=== PATIENT | female | born 1995 | race Caucasian/White ===

== ENCOUNTER 2017-08-29 22:03 | Emergency (ER) | payer OTHER ==
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
--- NOTE | 2017-08-30 01:22 | EDPHYS ---
Physician Documentation [facility] Name: Yandy Dawkins Age: 21 yrs Sex: Female : 1995 Arrival Date: 08/29/2017 Time: 22:18 Bed 14 Private MD: ED Physician Ever Bolivar HPI: 08/30 01:32 This 21 yrs old Female presents to ER via Ambulatory with complaints of Lower snw Back Pain. 01:32 Onset: The symptoms/episode began/occurred acutely, this morning. Associated signs and snw symptoms: The patient has no apparent associated signs or symptoms. Modifying factors: The patient symptoms are alleviated by nothing, the patient symptoms are aggravated by nothing. The patient has not experienced similar symptoms in the past. It is unknown whether or not the patient has recently seen a physician. 01:32 no fever, no vomiting,. 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 - Social history:: Smoking status: Patient uses tobacco products, smokes one-half pack cigarettes per day, Patient uses alcohol, occasionally. street drugs, marijuana. ROS: 08/30 01:32 Constitutional: Negative for fever, chills, and weight loss, Eyes: Negative for injury, snw pain, redness, and discharge, ENT: Negative for injury, pain, and discharge, Neck: Negative for injury, pain, and swelling, Cardiovascular: Negative for chest pain, palpitations, and edema, Respiratory: Negative for shortness of breath, cough, wheezing, and pleuritic chest pain, Abdomen/GI: Negative for abdominal pain, nausea, vomiting, diarrhea, and constipation, : Negative for injury, bleeding, discharge, and swelling, MS/Extremity: Negative for injury and deformity, Skin: Negative for injury, rash, and discoloration, Neuro: Negative for headache, weakness, numbness, tingling, and seizure. Back: Positive for pain at rest, flank pain, on the right. Exam: 01:30 Constitutional: This is a well developed, well nourished patient who is awake, alert, snw and in no acute distress. Head/Face: Normocephalic, atraumatic. Eyes: Pupils equal round and reactive to light, extra-ocular motions intact. Lids and lashes normal. Conjunctiva and sclera are non-icteric and not injected. Cornea within normal limits. Periorbital areas with no swelling, redness, or edema. ENT: Nares patent. No nasal discharge, no septal abnormalities noted. Tympanic membranes are normal and external auditory canals are clear. Oropharynx with no redness, swelling, or masses, exudates, or evidence of obstruction, uvula midline. Mucous membranes moist. Neck: Trachea midline, no thyromegaly or masses palpated, and no cervical lymphadenopathy. Supple, full range of motion without nuchal rigidity, or vertebral point tenderness. No Meningismus. Chest/axilla: Normal chest wall appearance and motion. Nontender with no deformity. No lesions are appreciated. Cardiovascular: Regular rate and rhythm with a normal S1 and S2. No gallops, murmurs, or rubs. Normal PMI, no JVD. No pulse deficits. Respiratory: Lungs have equal breath sounds bilaterally, clear to auscultation and percussion. No rales, rhonchi or wheezes noted. No increased work of breathing, no retractions or nasal flaring. Back: No spinal tenderness. Mild right costovertebral tenderness. No CVA tenderness to left. Full range of motion. MS/ Extremity: Pulses equal, no cyanosis. Neurovascular intact. Full, normal range of motion. Neuro: Awake and alert, GCS 15, oriented to person, place, time, and situation. Cranial nerves II-XII grossly intact. Motor strength 5/5 in all extremities. Sensory grossly intact. Cerebellar exam normal. Normal gait. 01:30 Abdomen/GI: Inspection: abdomen appears normal, Bowel sounds: normal, Palpation: abdomen is soft and non-tender. 01:30 Skin: Appearance: normal except for affected area, injury, abrasion(s), small abrasion noted, upper extremities and hands. Vital Signs: 08/29 22:53 BP 124 / 68; Pulse 74; Resp 18; Temp 98.5(O); Pulse Ox 100% on R/A; Weight 106.59 kg fc (R); Height 5 ft. 5 in. (165.10 cm) (R); Pain 6/10; 08/30 00:51 BP 96 / 66; Pulse 81; Resp 16; Pulse Ox 100% on R/A; aa1 01:30 BP 111 / 65; Pulse 79; Resp 16; Pulse Ox 99% on R/A; aa1 08/29 22:53 Body Mass Index 39.11 (106.59 kg, 165.10 cm) fc MDM: 00:58 Patient medically screened. [facility] 01:33 Data reviewed: vital signs, nurses notes. Data interpreted: Pulse oximetry: on room air snw is 99 %. Interpretation: normal. Counseling: I had a detailed discussion with the patient and/or guardian regarding: the historical points, exam findings, and any diagnostic results supporting the discharge/admit diagnosis, lab results, the need for outpatient follow up, to return to the emergency department if symptoms worsen or persist or if there are any questions or concerns that arise at home. Special discussion: Based on the history and exam findings, there is no indication for further emergent testing or inpatient evaluation. I discussed with the patient/guardian the need to see the primary care provider for further evaluation of the symptoms. 08/30 00:56 Order name: Urine Culture snw 08/30 00:56 Order name: Urine Microscopic Only; Complete Time: 01:30 snw 08/30 01:24 Order name: Urine Dipstick--Ancillary (enter results) em1 08/30 01:24 Order name: Urine --Ancillary (enter results) [facility] 08/30 00:56 Order name: Urine Test (obtain specimen); Complete Time: 01:02 snw 08/30 00:56 Order name: Urine Dipstick-Ancillary (obtain specimen); Complete Time: 01:02 snw Administered Medications: :29 Drug: Bactrim (160 mg-800 mg (DS) 1 tablet Route: PO; aa1 :29 Follow up: Response: Medication administered at discharge. aa1 :29 Drug: Motrin 400 mg Route: PO; aa1 : Follow up: Response: Medication administered at discharge. aa1 Disposition: 09:14 Co-signature as Attending Physician, Ever Bolivar MD I agree with the assessment and [facility] plan of care. Disposition: 08/30/17 01:21 Discharged to Home. Impression: Urinary tract infection, site not specified, Low back pain. - Condition is Stable. - Discharge Instructions: Abrasion, Back Pain, Adult, Urinary Tract Infection, Rehydration, Adult. - Prescriptions for Pyridium 200 mg Oral Tablet - take 1 tablet by ORAL route every 8 hours for 3 days; 9 tablet. Bactrim DS 800- 160 mg Oral Tablet - take 1 tablet by ORAL route every 12 hours for 10 days; 20 tablet. - Work release form, Medication Reconciliation Form, Thank You Letter, Antibiotic Education, Prescription Opioid Use form. - Follow up: Private Physician; When: 2 - 3 days; Reason: Recheck today's complaints, Continuance of care, Re-evaluation by your physician. Follow up: Emergency Department; When: As needed; Reason: Worsening of condition. Signatures: Dispatcher [employer] Valerie Sinha, RN RN Ever Sibley MD MD cha Therrien, Shelly, MICROARRAY OPERATIONS VICE PRESIDENT-C MICROARRAY OPERATIONS VICE PRESIDENT-Csnw Zahra Pritchard RN RN fc
[2017-08-30] MEDS ORDERED: SMZ./TMP. 800/160 MG TABLET ONE (01:24)
[2017-08-30] MEDS ORDERED: IBUPROFEN 400 MG TAB ONE (01:24)
[2017-08-30 01:28] LABS: Urine Bacteria LOADED /HPF (<20); Urine Culture Reflex Order NOT NEEDED; Urine Mucus LIGHT /HPF (NONE SEEN); Urine RBC NONE SEEN /HPF (NONE SEEN)
[2017-08-30 01:58] VITALS: TEMP 98.5
[2017-08-30 01:59] LABS: Urine Blood TRACE (NEG); Urine Glucose NEGATIVE (NEG); Urine Protein 1+ (NEG); Urine pH 5.5 (5.0-7.0)
[2017-08-30 02:04] VITALS: BP 111/65; O2SAT 99
== END 2017-08-30 01:33 | disposition home or self-care (01) ==
LOC: ER 22:03
DX: N39.0 Urinary tract infection, site not specified (principal); F17.210 Nicotine dependence, cigarettes, uncomplicated; Z88.5 Allergy status to narcotic agent
CPT/HCPCS: 81003; 81015; 81025; 87077; 87086; 87088; 87186; 99284

== ENCOUNTER 2018-02-13 09:00 | Emergency (ER) | payer OTHER ==
--- NOTE | 2018-02-13 10:33 | EDPHYS ---
Physician Documentation [facility] Name: Yandy Dawkins Age: 22 yrs Sex: Female : 1995 Arrival Date: 02/13/2018 Time: 09:02 Bed 6 Private MD: None, None ED Physician Danie Lock HPI: 02/13 09:54 This 22 yrs old Female presents to ER via Ambulatory with complaints of Flu rn Symptoms, Abdominal Problem. 09:54 The patient or guardian reports cough, flu symptoms. Onset: The symptoms/episode rn began/occurred 3 day(s) ago. Severity of symptoms: At their worst the symptoms were mild, in the emergency department the symptoms are unchanged. The patient has experienced similar episodes in the past. The patient has not recently seen a physician. Reports cough/congestion/sore throat for 3 days, no fever, + daily smoker and smokes weed, reports unable to smoke weed lately because of this cold. Also reports left and epigastric abd cramping and bloating since her surgery (cholecystectomy in May). No acute changes, is just tired of hurting. Didn't f/u with her surgeon afterwards, reports smoking weed helps symptoms. . 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 - Social history:: Smoking status: Patient uses tobacco products, smokes one-half pack cigarettes per day, Patient uses street drugs, marijuana. - Ebola Screening: : No symptoms or risks identified at this time. - Family history:: not pertinent. - Hospitalizations: : No recent hospitalization is reported. ROS: 09:54 Constitutional: Negative for fever, chills, and weight loss, Eyes: Negative for injury, rn pain, redness, and discharge, Neck: Negative for injury, pain, and swelling, Cardiovascular: Negative for chest pain, palpitations, and edema, Respiratory: Negative for shortness of breath, wheezing, and pleuritic chest pain, Abdomen/GI: Negative for diarrhea, and constipation, Back: Negative for injury and pain, : Negative for injury, bleeding, discharge, and swelling, MS/Extremity: Negative for injury and deformity, Skin: Negative for injury, rash, and discoloration, Neuro: Negative for headache, weakness, numbness, tingling, and seizure. Exam: 09:54 Constitutional: This is a well developed, well nourished patient who is awake, alert, rn apperas anxious and tearful Head/Face: Normocephalic, atraumatic. Eyes: Pupils equal round and reactive to light, extra-ocular motions intact. Lids and lashes normal. Conjunctiva and sclera are non-icteric and not injected. Cornea within normal limits. Periorbital areas with no swelling, redness, or edema. Neck: Trachea midline, no thyromegaly or masses palpated, and no cervical lymphadenopathy. Supple, full range of motion without nuchal rigidity, or vertebral point tenderness. No Meningismus. Cardiovascular: Regular rate and rhythm with a normal S1 and S2. No gallops, murmurs, or rubs. Normal PMI, no JVD. No pulse deficits. Respiratory: Lungs have equal breath sounds bilaterally, clear to auscultation and percussion. No rales, rhonchi or wheezes noted. No increased work of breathing, no retractions or nasal flaring. Abdomen/GI: Soft, non-tender, with normal bowel sounds. No distension or tympany. No guarding or rebound. No evidence of tenderness throughout. Back: No spinal tenderness. No costovertebral tenderness. Full range of motion. Skin: Warm, dry with normal turgor. Normal color with no rashes, no lesions, and no evidence of cellulitis. MS/ Extremity: Pulses equal, no cyanosis. Neurovascular intact. Full, normal range of motion. Equal circumference. Neuro: Awake and alert, GCS 15, oriented to person, place, time, and situation. Cranial nerves II-XII grossly intact. Motor strength 5/5 in all extremities. Sensory grossly intact. Cerebellar exam normal. Normal gait. Vital Signs: 09:10 BP 135 / 79; Pulse 94; Resp 16; Temp 97.4(TE); Pulse Ox 100% on R/A; Pain 6/10; hb MDM: 09:06 Patient medically screened. rn 10:31 Differential Diagnosis: Influenza Upper Respiratory Infection Pharyngitis Allergic rn Rhinitis Viral Syndrome. Data reviewed: vital signs, nurses notes, lab test result(s), and as a result, I will discharge patient. Counseling: I had a detailed discussion with the patient and/or guardian regarding: the historical points, exam findings, and any diagnostic results supporting the discharge/admit diagnosis, lab results, the need for outpatient follow up, to return to the emergency department if symptoms worsen or persist or if there are any questions or concerns that arise at home. Special discussion: I discussed with the patient/guardian in detail that at this point there is no indication for admission to the hospital. It is understood, however, that if the symptoms persist or worsen the patient needs to return immediately for re-evaluation. Based on the history and exam findings, there is no indication for further emergent testing or inpatient evaluation. 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 ED course: Strep/flu neg, symptoms consistent with viral syndrome, will dc home with pcp f/u for reeval, recommend gi f/u for chronic abd issues. . 02/13 09: Order name: Strep; Complete Time: 10:31 rn 02/13 09: Order name: Flu; Complete Time: 10: rn 02/13 10:28 Order name: Throat Culture EDMS Administered Medications: No medications were administered Disposition: 02/13/18 10:33 Discharged to Home. Impression: Viral upper respiratory infection, Unspecified abdominal pain. - Condition is Stable. - Discharge Instructions: Abdominal Pain, Adult, Pain Without a Known Cause, Upper Respiratory Infection, Adult. - Medication Reconciliation Form, Thank You Letter, Antibiotic Education, Prescription Opioid Use form. - Follow up: Gildardo Olvera MD; When: As needed; Reason: Recheck today's complaints, Re-evaluation by your physician. - Problem is an ongoing problem. - Symptoms have improved. Signatures: Dispatcher [employer] EDMS Danie Lock MD MD rn Baxter, Heather, RN RN hb Corrections: (The following items were deleted from the chart) 10:42 10:33 02/13/2018 10:33 Discharged to Home. Impression: Viral upper respiratory hb infection; Unspecified abdominal pain. Condition is Stable. Forms are Medication Reconciliation Form, Thank You Letter, Antibiotic Education, Prescription Opioid Use. Follow up: Gildardo Olvera; When: As needed; Reason: Recheck today's complaints, Re-evaluation by your physician. Problem is an ongoing problem. Symptoms have improved. rn
--- NOTE | 2018-02-13 10:33 | ER ---
Nurse's Notes [facility] Name: Yandy Dawkins Age: 22 yrs Sex: Female : 1995 Arrival Date: 02/13/2018 Time: 09:02 Bed 6 Private MD: None, None Diagnosis: Viral upper respiratory infection;Unspecified abdominal pain Presentation: 02/13 09:11 Presenting complaint: Sore throat, sinus congestion, and productive cough with yellow hb sputum x 3 days. Pt is very tearful, also c/o nausea and abdominal distention/bloating since jorge in May, nausea is worse because she is too sick to smoke pot daily as usual. Transition of care: patient was not received from another setting of care. Onset of symptoms was February 11, 2018. Risk Assessment: Do you want to hurt yourself or someone else? Patient reports no desire to harm self or others. Care prior to arrival: None. 09:11 Method Of Arrival: Ambulatory hb 09:11 Acuity: SREEKANTH 4 hb 09:30 Initial Sepsis Screen: Does the patient meet any 2 criteria? HR > 90 bpm. Does the sg patient have a suspected source of infection? No. Patient's initial sepsis screen is negative. 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 - Social history:: Smoking status: Patient uses tobacco products, smokes one-half pack cigarettes per day, Patient uses street drugs, marijuana. - Ebola Screening: : No symptoms or risks identified at this time. - Family history:: not pertinent. - Hospitalizations: : No recent hospitalization is reported. Screenin:14 Abuse screen: Denies threats or abuse. Denies injuries from another. Nutritional hb screening: No deficits noted. Tuberculosis screening: No symptoms or risk factors identified. Fall Risk None identified. Assessment: 09:30 General: Appears in no apparent distress. uncomfortable, well groomed, well developed, sg well nourished, Behavior is cooperative, appropriate for age, anxious, crying. Pain: Complains of pain in sore throat, abdominal pain. Neuro: No deficits noted. Cardiovascular: Heart tones S1 S2 present Patient's skin is warm and dry. Chest pain is denied. Respiratory: Reports cough that is productive, Airway is patent Respiratory effort is even, unlabored, Respiratory pattern is regular, symmetrical, Breath sounds are clear. GI: Abdomen is round non-distended, Reports lower abdominal pain, upper abdominal pain, reports abd to be distended, "feels like its full of air. My doctor diagnosed it as constipation.". : No signs and/or symptoms were reported regarding the genitourinary system. EENT: No signs and/or symptoms were reported regarding the EENT system. Derm: Skin is pink, warm \\T\\ dry. Musculoskeletal: No signs and/or symptoms reported regarding the musculoskeletal system. Vital Signs: 09:10 BP 135 / 79; Pulse 94; Resp 16; Temp 97.4(TE); Pulse Ox 100% on R/A; Pain 6/10; hb ED Course: 09:02 Patient arrived in ED. sb2 09:04 None, None is Private Physician. sb2 09:06 Danie Lock MD is Attending Physician. rn 09:11 Arm band placed on right wrist. hb 09:14 Triage completed. hb 09:27 Rubin Noyola RN is Primary Nurse. sg 09:32 Flu and/or RSV swab sent to lab. Strep swab sent to lab. [facility] 09:45 Patient has correct armband on for positive identification. Bed in low position. Call sg light in reach. Side rails up X2. Pulse ox on. NIBP on. Warm blanket given. Head of bed elevated. 10:32 Gildardo Olvera MD is Referral Physician. rn 10:41 No provider procedures requiring assistance completed. hb 10:41 Patient did not have IV access during this emergency room visit. sg Administered Medications: No medications were administered Outcome: 10:33 Discharge ordered by . rn 10:41 Discharged to home ambulatory. hb 10:41 Condition: stable 10:41 Discharge instructions given to patient, Instructed on discharge instructions, follow up and referral plans. medication usage, Demonstrated understanding of instructions, follow-up care, medications. 10:42 Patient left the ED. Signatures: Rubin Noyola RN RN Danie Lock MD MD rn Baxter, Heather, RN RN Zayas, Susan dh3 Billeau, Sandee sb2
[2018-02-13 11:06] VITALS: BP 135/79; TEMP 97.4; O2SAT 100
== END 2018-02-13 10:42 | disposition home or self-care (01) ==
LOC: ER 09:00
DX: J06.9 Acute upper respiratory infection, unspecified (principal); F17.210 Nicotine dependence, cigarettes, uncomplicated; Z88.5 Allergy status to narcotic agent
CPT/HCPCS: 87070; 87081; 87804; 99283

== ENCOUNTER 2019-04-30 12:38 | Emergency (ER) | payer OTHER ==
--- OUTSIDE RECORDS SUMMARY | 2019-04-30 12:40 | XMS REPORT ---
:1995 [facility] Address [address] [place] [address] [address] [place] [address] Care Team Providers Name Role Phone Unavailable Unavailable Unavailable Problems This patient has no known problems. Allergies, Adverse Reactions, Alerts This patient has no known allergies or adverse reactions. Medications This patient has no known medications.
[2019-04-30] MEDS ORDERED: NA CHLORIDE 0.9% 1,000 ML ONE (13:18)
[2019-04-30] MEDS ORDERED: ONDANSETRON 4 MG/2 ML VIAL ONE ×2 (13:18→15:42)
[2019-04-30 13:33] LABS: Absolute Lymphocytes (CBC) 1.3 K/uL (0.7-4.9); Basophils % 0.3 % (0-1.3); Lymphocytes % 6.3 % (15.3-44.8); MPV 7.4 fL (7.6-11.3); RBC Red Blood Cell Count 4.67 M/uL (3.86-4.86)
[2019-04-30] MEDS ORDERED: KETOROLAC 30 MG/ML INJ ONE (13:48)
[2019-04-30 14:12] LABS: Bilirubin Direct 0.2 mg/dL (0-0.2); Bilirubin Total 0.9 mg/dL (0.2-1.0); Potassium 3.7 mmol/L (3.5-5.1); Protein, Total 8.5 g/dL (6.4-8.2)
[2019-04-30] MEDS ORDERED: FENTANYL CITR 100 MCG/2 ML ONE (15:15)
--- NOTE | 2019-04-30 16:06 | RAD REPORT ---
EXAM DESCRIPTION: CTAbdomen Pelvis W Contrast - 04/30/2019 3:56 pm CLINICAL HISTORY: Abdominal pain. ABD PAIN COMPARISON: Abdomen Pelvis W Contrast dated 12/02/2016 TECHNIQUE: Biphasic CT imaging of the abdomen and pelvis was performed with 100 ml non-ionic IV cont rast. All CT scans are performed using dose optimization technique as appropriate and may include automated exposure control or mA/KV adjustment according to patient size. FINDINGS: The lung bases are clear.Cholecystectomy. The liver, spleen, pancreas, adrenal glands and kidneys are within normal limits. No bowel obstruction, free air, free fluid or abscess. The appendix is normal. No evidence of signi ficant lymphadenopathy. No suspicious bony findings. 4 cm right adnexal cyst. IMPRESSION: No acute intra-abdominal or pelvic finding.
--- NOTE | 2019-04-30 16:20 | ER ---
Nurse's Notes [facility] Name: Yandy Dawkins Age: 23 yrs Sex: Female : 1995 Arrival Date: 04/30/2019 Time: 12:41 Bed 20 Private MD: Diagnosis: Nausea with vomiting, unspecified Presentation: 04/30 12:49 Presenting complaint: N/V and upper abdominal pain upon waking today. Not tolerating hb fluids. Actively vomiting in triage. Pt had 6 teeth extracted yesterday. Transition of care: patient was not received from another setting of care. Onset of symptoms was April 30, 2019. Risk Assessment: Do you want to hurt yourself or someone else? Patient reports no desire to harm self or others. Care prior to arrival: None. 12:49 Method Of Arrival: Ambulatory hb 12:49 Acuity: SREEKANTH 3 hb Historical: - Allergies: 12:50 HYDROCODONE; hb - Home Meds: 12:50 oral BC [Active]; hb - PMHx: 12:50 Anxiety; Bipolar disorder; Depression; hb - PSHx: 12:50 Cholecystectomy; hb - Immunization history:: Adult Immunizations up to date. - Social history:: Smoking status: Patient uses tobacco products, smokes one pack cigarettes per day. - Ebola Screening: : No symptoms or risks identified at this time. Screenin:00 Abuse screen: Denies threats or abuse. Denies injuries from another. Nutritional ca1 screening: No deficits noted. Tuberculosis screening: No symptoms or risk factors identified. Fall Risk IV access (20 points). Assessment: 13:00 General: Appears in no apparent distress. uncomfortable, Behavior is calm, cooperative, ca1 appropriate for age. Pain: Complains of pain in right upper quadrant and left upper quadrant Pain currently is 9 out of 10 on a pain scale. Quality of pain is described as squeezing, Pain began 3 hours ago. Is continuous. Pain:. Neuro: Level of Consciousness is awake, alert, obeys commands, Oriented to person, place, time, situation. Cardiovascular: Heart tones S1 S2 present Capillary refill < 3 seconds Patient's skin is warm and dry. Respiratory: Airway is patent Respiratory effort is even, unlabored, Respiratory pattern is regular, symmetrical, Breath sounds are clear bilaterally. GI: Abdomen is round non-distended, Pt is actively vomiting undigested food, Bowel sounds present X 4 quads. Abd is soft X 4 quads Abdomen is tender to palpation in right upper quadrant and left upper quadrant. : No deficits noted. No signs and/or symptoms were reported regarding the genitourinary system. EENT: No deficits noted. No signs and/or symptoms were reported regarding the EENT system. Derm: Skin is intact, is healthy with good turgor, Skin is pink, warm \T\ dry. Musculoskeletal: Circulation, motion, and sensation intact. Capillary refill < 3 seconds, Range of motion: intact in all extremities. 14:44 Reassessment: Patient appears in no apparent distress at this time. Patient and/or ca1 family updated on plan of care and expected duration. Pain level reassessed. Patient is alert, oriented x 3, equal unlabored respirations, skin warm/dry/pink. 15:27 Reassessment: Patient appears in no apparent distress at this time. Patient is alert, ca1 oriented x 3, equal unlabored respirations, skin warm/dry/pink. 15:45 Reassessment: Pt to CT. ca1 16:16 Reassessment: Patient appears in no apparent distress at this time. Patient and/or sg family updated on plan of care and expected duration. Pain level reassessed. Patient is alert, oriented x 3, equal unlabored respirations, skin warm/dry/pink. Zahra TISSUE RECOVERY TECHNICIAN at bedside updating pt on results and POC, pt stated understanding, awaiting dispo orders at this time. Vital Signs: 12:49 BP 150 / 91; Pulse 88; Resp 18; Temp 97; Pulse Ox 100% ; Weight 117.03 kg; Height 5 ft. hb 5 in. (165.10 cm); Pain 9/10; 13:26 BP 128 / 94; Pulse 65; Resp 19 S; Pulse Ox 100% on R/A; ca1 14:44 BP 121 / 76; Pulse 64; Resp 17 S; Pulse Ox 100% on R/A; ca1 15:27 BP 105 / 76; Pulse 84; Resp 17 S; Pulse Ox 100% ; ca1 12:49 Body Mass Index 42.93 (117.03 kg, 165.10 cm) hb ED Course: 12:41 Patient arrived in ED. mr 12:50 Triage completed. hb 12:50 Arm band placed on. hb 13:00 Patient has correct armband on for positive identification. Placed in gown. Bed in low ca1 position. Call light in reach. Side rails up X2. Pulse ox on. NIBP on. Warm blanket given. 13:00 No provider procedures requiring assistance completed. ca1 13:02 Cecy Paul FNP-C is PSYCHIATRICP. kb 13:02 Maurice Pizarro MD is Attending Physician. kb 13:07 Jaqueline Peraza, RN is Primary Nurse. ca1 13:20 Initial lab(s) drawn, by me, sent to lab. Inserted saline lock: 20 gauge in left dh3 antecubital area, using aseptic technique. Blood collected. 15:30 Urine collected: clean catch specimen, clear. dh3 15:59 CT Abd/Pelvis - IV Contrast Only In Process Unspecified. EDMS 16:13 Primary Nurse role handed off by Jaqueline Peraza, RN sg 16:13 Rubin Noyola, RN is Primary Nurse. sg 16:30 IV discontinued, intact, bleeding controlled, No redness/swelling at site. Pressure sg dressing applied. Administered Medications: 13:20 Drug: NS 0.9% 1000 ml Route: IV; Rate: 1000 ml; Site: left antecubital; ca1 15:17 Follow up: Response: No adverse reaction; IV Status: Completed infusion ca1 13:23 Drug: Zofran 4 mg Route: IVP; Site: left antecubital; ca1 15:16 Follow up: Response: No adverse reaction; Nausea is decreased ca1 13:45 Drug: TORadol - Ketorolac 15 mg Route: IVP; Site: left antecubital; ca1 15:16 Follow up: Response: No adverse reaction; Pain is unchanged, physician notified ca1 15:16 Drug: fentaNYL (PF) 25 mcg {Note: RASS - 0.} Route: IVP; Site: left antecubital; ca1 15:44 Drug: Zofran 4 mg Route: IVP; Site: left antecubital; ca1 Outcome: 16:18 Discharge ordered by . kb 16:30 Discharged to home ambulatory, with family. sg 16:30 Condition: good 16:30 Discharge instructions given to patient, Instructed on discharge instructions, follow up and referral plans. medication usage, safety practices, Demonstrated understanding of instructions, follow-up care, medications, Prescriptions given X 1. 16:39 Patient left the ED. sg Signatures: Dispatcher [employer] EDMS Cecy Paul, TISSUE RECOVERY TECHNICIAN-C TISSUE RECOVERY TECHNICIAN-Rubin Newell RN RN sg Alee Tesfaye mr Birdie Carvajal, SHARON RN Susan Zayas [facility] Jaqueline Peraza RN RN ca1 Corrections: (The following items were deleted from the chart) 15:22 12:49 BP 150 / 91; Pulse 88bpm; Resp 18bpm; Pulse Ox 100%; Temp 97F; 258.55 kg; Height hb 5 ft. 5 in.; BMI: 94.8; Pain 9/10; hb
--- NOTE | 2019-04-30 16:20 | EDPHYS ---
Physician Documentation [facility] Name: Yandy Dawkins Age: 23 yrs Sex: Female : 1995 Arrival Date: 04/30/2019 Time: 12:41 Bed 20 Private MD: ED Physician Maurice Pizarro HPI: 04/30 13:52 This 23 yrs old Female presents to ER via Ambulatory with complaints of kb Vomiting. 13:52 The patient presents to the emergency department with nausea, vomiting, abdominal pain. kb Onset: The symptoms/episode began/occurred this morning. Possible causes: recent tooth extraction, taking pain medications. The symptoms are aggravated by nothing. The symptoms are alleviated by nothing. Associated signs and symptoms: Pertinent positives: abdominal pain, nausea, vomiting. Severity of symptoms: At their worst the symptoms were moderate in the emergency department the symptoms are unchanged. The patient has not experienced similar symptoms in the past. The patient has been recently seen by a physician:. Pt had 6 teeth extracted yesterday and is on Tyelnol #3 for the pain. Woke up vomiting this morning, then developed upper abd pain as well. Reports no dental pain. . Historical: - Allergies: 12:50 HYDROCODONE; hb - Home Meds: 12:50 oral BC [Active]; hb - PMHx: 12:50 Anxiety; Bipolar disorder; Depression; hb - PSHx: 12:50 Cholecystectomy; hb - Immunization history:: Adult Immunizations up to date. - Social history:: Smoking status: Patient uses tobacco products, smokes one pack cigarettes per day. - Ebola Screening: : No symptoms or risks identified at this time. ROS: 13:52 Constitutional: Negative for fever, chills, and weight loss, ENT: Negative for injury, kb pain, and discharge, Neck: Negative for injury, pain, and swelling, Cardiovascular: Negative for chest pain, palpitations, and edema, Respiratory: Negative for shortness of breath, cough, wheezing, and pleuritic chest pain, Back: Negative for injury and pain, MS/Extremity: Negative for injury and deformity, Skin: Negative for injury, rash, and discoloration, Neuro: Negative for headache, weakness, numbness, tingling, and seizure. 13:52 Abdomen/GI: Positive for abdominal pain, nausea and vomiting, Negative for diarrhea, constipation, abdominal cramps, abdominal distension, anorexia. Exam: 13:52 Constitutional: This is a well developed, well nourished patient who is awake, alert, kb and in no acute distress. Head/Face: Normocephalic, atraumatic. ENT: Nares patent. No nasal discharge, no septal abnormalities noted. Tympanic membranes are normal and external auditory canals are clear. Oropharynx with no redness, swelling, or masses, exudates, or evidence of obstruction, uvula midline. Mucous membranes moist. Neck: Trachea midline, no thyromegaly or masses palpated, and no cervical lymphadenopathy. Supple, full range of motion without nuchal rigidity, or vertebral point tenderness. No Meningismus. Chest/axilla: Normal chest wall appearance and motion. Nontender with no deformity. No lesions are appreciated. Cardiovascular: Regular rate and rhythm with a normal S1 and S2. No gallops, murmurs, or rubs. Normal PMI, no JVD. No pulse deficits. Respiratory: Lungs have equal breath sounds bilaterally, clear to auscultation and percussion. No rales, rhonchi or wheezes noted. No increased work of breathing, no retractions or nasal flaring. Abdomen/GI: Soft, non-tender, with normal bowel sounds. No distension or tympany. No guarding or rebound. No evidence of tenderness throughout. Skin: Warm, dry with normal turgor. Normal color with no rashes, no lesions, and no evidence of cellulitis. MS/ Extremity: Pulses equal, no cyanosis. Neurovascular intact. Full, normal range of motion. Neuro: Awake and alert, GCS 15, oriented to person, place, time, and situation. Cranial nerves II-XII grossly intact. Motor strength 5/5 in all extremities. Sensory grossly intact. Cerebellar exam normal. Normal gait. Vital Signs: 12:49 BP 150 / 91; Pulse 88; Resp 18; Temp 97; Pulse Ox 100% ; Weight 117.03 kg; Height 5 ft. hb 5 in. (165.10 cm); Pain 9/10; 13:26 BP 128 / 94; Pulse 65; Resp 19 S; Pulse Ox 100% on R/A; ca1 14:44 BP 121 / 76; Pulse 64; Resp 17 S; Pulse Ox 100% on R/A; ca1 15:27 BP 105 / 76; Pulse 84; Resp 17 S; Pulse Ox 100% ; ca1 12:49 Body Mass Index 42.93 (117.03 kg, 165.10 cm) hb MDM: 13:02 Patient medically screened. kb 13:51 Data reviewed: vital signs, nurses notes. Data interpreted: Pulse oximetry: on room air kb is 100 %. Interpretation: normal. 16:12 Counseling: I had a detailed discussion with the patient and/or guardian regarding: the kb historical points, exam findings, and any diagnostic results supporting the discharge/admit diagnosis, lab results, radiology results, the need for outpatient follow up, a family practitioner, to return to the emergency department if symptoms worsen or persist or if there are any questions or concerns that arise at home. 04/30 13:12 Order name: Basic Metabolic Panel; Complete Time: 14:12 kb 04/30 13:12 Order name: CBC with Diff kb 04/30 13:12 Order name: Hepatic Function; Complete Time: 14:12 kb 04/30 13:12 Order name: Lipase; Complete Time: 14:12 kb 04/30 14:29 Order name: CBC Smear Scan EDMS 04/30 16:18 Order name: Urine Dipstick--Ancillary (enter results) bd 04/30 13:12 Order name: IV Saline Lock; Complete Time: 13:23 kb 04/30 14:38 Order name: CT Abd/Pelvis - IV Contrast Only; Complete Time: 16:12 kb 04/30 16:18 Order name: Urine --Ancillary (enter results) bd 04/30 13:12 Order name: Labs collected and sent; Complete Time: 13:23 kb 04/30 15:19 Order name: Urine Dipstick-Ancillary (obtain specimen); Complete Time: 15:35 kb 04/30 15:19 Order name: Urine Test (obtain specimen); Complete Time: 15:35 kb 04/30 16:12 Order name: PO challenge; Complete Time: 16:39 kb Administered Medications: 13:20 Drug: NS 0.9% 1000 ml Route: IV; Rate: 1000 ml; Site: left antecubital; ca1 15:17 Follow up: Response: No adverse reaction; IV Status: Completed infusion ca1 13:23 Drug: Zofran 4 mg Route: IVP; Site: left antecubital; ca1 15:16 Follow up: Response: No adverse reaction; Nausea is decreased ca1 13:45 Drug: TORadol - Ketorolac 15 mg Route: IVP; Site: left antecubital; ca1 15:16 Follow up: Response: No adverse reaction; Pain is unchanged, physician notified ca1 15:16 Drug: fentaNYL (PF) 25 mcg {Note: RASS - 0.} Route: IVP; Site: left antecubital; ca1 15:44 Drug: Zofran 4 mg Route: IVP; Site: left antecubital; ca1 Disposition: 05/01 07:18 Co-signature as Attending Physician, Maurice Pizarro MD I agree with the assessment and kdr plan of care. Disposition: 04/30/19 16:18 Discharged to Home. Impression: Nausea with vomiting, unspecified. - Condition is Stable. - Discharge Instructions: Nausea and Vomiting, Adult, [id number]. - Prescriptions for Zofran 4 mg Oral Tablet - take 1 tablet by ORAL route every 6 hours As needed; 20 tablet. - Medication Reconciliation Form, Thank You Letter, Antibiotic Education, Prescription Opioid Use, Work release form form. - Follow up: Emergency Department; When: As needed; Reason: Worsening of condition. Follow up: Private Physician; When: 2 - 3 days; Reason: Recheck today's complaints, Continuance of care, Re-evaluation by your physician. Signatures: Dispatcher [employer] EDMS Cecy Paul, SEA KAYAKING GUIDE-C SEA KAYAKING GUIDE-CkRubin Crandall RN RN sg Maurice Pizarro MD MD [facility] Birdie Carvajal RN RN Jaqueline Peraza RN RN ca1 Corrections: (The following items were deleted from the chart) 04/30 16:39 16:18 04/30/2019 16:18 Discharged to Home. Impression: Nausea with vomiting, sg unspecified. Condition is Stable. Forms are Medication Reconciliation Form, Thank You Letter, Antibiotic Education, Prescription Opioid Use. Follow up: Emergency Department; When: As needed; Reason: Worsening of condition. Follow up: Private Physician; When: 2 - 3 days; Reason: Recheck today's complaints, Continuance of care, Re-evaluation by your physician. kb
[2019-04-30 16:55] LABS: Urine Blood NEGATIVE (NEG); Urine Glucose NEGATIVE (NEG); Urine Protein NEGATIVE (NEG); Urine Specific Gravity 1.015 (1.005-1.030); Urine pH 5.5 (5.0-7.0)
[2019-04-30 16:57] LABS: Blood Morphology Comment NOT SEEN (NOT SEEN); Platelet Estimate INCR; Urine White Blood Cell Casts OK
[2019-05-01 03:47] VITALS: TEMP 97; O2SAT 100
[2019-05-01 03:52] VITALS: BP 105/76
== END 2019-04-30 16:39 | disposition home or self-care (01) ==
LOC: ER 12:38
DX: R11.2 Nausea with vomiting, unspecified (principal); F17.210 Nicotine dependence, cigarettes, uncomplicated; Z88.5 Allergy status to narcotic agent
CPT/HCPCS: 96361; 85025; 80048; 36415; 81025; 80076; 81003; 83690; 74177; 96375; 96374; 99284; Q9967; J3010; J7030; J2405 ×2

== ENCOUNTER 2019-11-22 05:43 | Emergency (ER) | payer OTHER ==
--- OUTSIDE RECORDS SUMMARY | 2019-11-22 05:45 | XMS REPORT | Continuity of Care Document ---
:1995 Author Organization [facility] t Address [address] [place] [address] [place] [id number] Care Team Providers Name Role Phone Unavailable Unavailable Unavailable Problems This patient has no known problems. Allergies, Adverse Reactions, Alerts This patient has no known allergies or adverse reactions. Medications This patient has no known medications. Procedures This patient has no known procedures. Results This patient has no known results.
[2019-11-22 06:15] LABS: Absolute Lymphocytes (CBC) 1.9 K/uL (0.7-4.9); Basophils % 0.4 % (0-1.3); Hematocrit 39.5 % (36.0-45.0); Lymphocytes % 16.6 % (15.3-44.8); MPV 7.4 fL (7.6-11.3); RBC Red Blood Cell Count 4.77 M/uL (3.86-4.86)
[2019-11-22] MEDS ORDERED: ONDANSETRON 4 MG/2 ML VIAL ONE (06:15)
[2019-11-22] MEDS ORDERED: NA CHLORIDE 0.9% 1,000 ML ONE (06:15)
[2019-11-22 06:22] LABS: Urine Blood NEGATIVE (NEG); Urine Glucose NEGATIVE (NEG); Urine Protein NEGATIVE (NEG); Urine Specific Gravity >1.030 (1.005-1.030)
[2019-11-22] MEDS ORDERED: KETOROLAC 30 MG/ML INJ ONE (06:33)
[2019-11-22 06:35] LABS: Bilirubin Direct 0.1 mg/dL (0-0.2); Bilirubin Total 0.6 mg/dL (0.2-1.0); Potassium 3.3 mmol/L (3.5-5.1); Protein, Total 8.1 g/dL (6.4-8.2)
--- NOTE | 2019-11-22 07:37 | RAD REPORT ---
EXAM DESCRIPTION: CTAbdomen Pelvis W Contrast - 11/22/2019 7:31 am CLINICAL HISTORY: Abdominal pain. Abd pain;Nausea / vomiting COMPARISON: Abdomen Pelvis W Contrast dated 04/30/2019; Abdomen Pelvis W Contrast dated 7 TECHNIQUE: Biphasic CT imaging of the abdomen and pelvis was performed with 100 ml non-ionic IV cont rast. All CT scans are performed using dose optimization technique as appropriate and may include automated exposure control or mA/KV adjustment according to patient size. FINDINGS: The lung bases are clear. The liver, spleen, pancreas, adrenal glands and kidneys are within normal limits. Cholecystectomy cli ps. No bowel obstruction, free air, free fluid or abscess. The appendix is normal. No evidence of signi ficant lymphadenopathy. No suspicious bony findings. 3 cm right ovarian follicle noted. IMPRESSION: No acute intra-abdominal or pelvic finding.
[2019-11-22] MEDS ORDERED: PROMETHAZINE INJ 25 MG/ML AMP ONE (08:00)
[2019-11-22] MEDS ORDERED: FAMOTIDINE 20 MG/2 ML VIAL IV ONE (08:00)
--- NOTE | 2019-11-22 08:22 | ER ---
Nurse's Notes [facility] Name: Yandy Dawkins Age: 23 yrs Sex: Female : 1995 Arrival Date: 11/22/2019 Time: 05:46 Bed 5 Private MD: Diagnosis: Nausea and vomiting;Unspecified abdominal pain Presentation: 11/21 05:53 Note this patient requires a visitor due to being mentally ill and likely to harm sg others. pt reports does not have documentation with her at this time but a picture of documentation can be found on her facebook page. a visitor is allowed at this time. 05:54 Chief complaint: Patient states: ABDOMINAL PAIN DESCRIBED GAS PAIN STARTED YESTERDAY rv MORNING UPON WAKING UP. THREW UP MORE THAN FIVE TIMES YESTERDAY, WITH BURNING SENSATION. Coronavirus screen: Proceed with normal triage. Ebola Screen: No symptoms or risks identified at this time. Initial Sepsis Screen: Does the patient meet any 2 criteria? No. Patient's initial sepsis screen is negative. Does the patient have a suspected source of infection? No. Patient's initial sepsis screen is negative. Risk Assessment: Do you want to hurt yourself or someone else? Patient reports no desire to harm self or others. Onset of symptoms was November 21, 2019 at 09:00. 05:54 Method Of Arrival: Ambulatory rv 05:54 Acuity: SREEKANTH 3 rv Triage Assessment: 05:56 General: Appears comfortable, Behavior is agitated. Pain: Complains of pain in abdomen rv Pain currently is 8 out of 10 on a pain scale. Quality of pain is described as burning, GAS. EENT: No signs and/or symptoms were reported regarding the EENT system. Neuro: Level of Consciousness is awake, alert, obeys commands, Oriented to person, place, time, situation. Cardiovascular: Patient's skin is warm and dry. Respiratory: Airway is patent. GI: Abdomen is round non-distended, Bowel sounds present X 4 quads. Reports lower abdominal pain, upper abdominal pain, nausea, vomiting, Patient currently denies constipation, diarrhea. Derm: Skin is intact. 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 - Social history:: Smoking status: Patient reports the use of cigarette tobacco products, smokes one pack cigarettes per day. Screenin:58 Abuse screen: Denies threats or abuse. Denies injuries from another. Nutritional rv screening: No deficits noted. Tuberculosis screening: No symptoms or risk factors identified. Fall Risk None identified. Assessment: 06:00 General: Appears in no apparent distress. uncomfortable, Behavior is calm, cooperative, rr5 appropriate for age. 06:00 Pain: Complains of pain in abdomen Pain currently is 8 out of 10 on a pain scale. rr5 Quality of pain is described as burning, aching, Pain began gradually, Is intermittent. Neuro: Level of Consciousness is awake, alert, obeys commands, Oriented to person, place, time, situation. Cardiovascular: Capillary refill < 3 seconds Patient's skin is warm and dry. Respiratory: Airway is patent Respiratory effort is even, unlabored, Respiratory pattern is regular, symmetrical. GI: Abdomen is round non-distended, obese, Pt is actively vomiting clear fluid, Reports lower abdominal pain, upper abdominal pain, gaseousness, nausea, vomiting. : No signs and/or symptoms were reported regarding the genitourinary system. EENT: No signs and/or symptoms were reported regarding the EENT system. Derm: Skin is intact, is healthy with good turgor, Skin is pink, warm \T\ dry. Musculoskeletal: Circulation, motion, and sensation intact. Capillary refill < 3 seconds. 06:56 Reassessment: Patient appears in no apparent distress at this time. Patient is alert, rr5 oriented x 3, equal unlabored respirations, skin warm/dry/pink. for CT via IV contrast. send by CT staff by wheelchair. 07:40 Reassessment: Patient appears in no apparent distress at this time. Patient and/or ph family updated on plan of care and expected duration. Pain level reassessed. Patient is alert, oriented x 3, equal unlabored respirations, skin warm/dry/pink. Pt resting quietly, awaiting CT results. 08:00 Reassessment: Patient appears in no apparent distress at this time. Patient and/or ph family updated on plan of care and expected duration. Pain level reassessed. Patient is alert, oriented x 3, equal unlabored respirations, skin warm/dry/pink. Vital Signs: 05:54 BP 122 / 77; Pulse 86; Resp 18; Temp 98.3; Pulse Ox 100% ; Weight 122.47 kg; Height 5 rv ft. 5 in. (165.10 cm); Pain 8/10; 06:34 BP 123 / 81; Pulse 60; Resp 17; Pulse Ox 98% ; rr5 08:00 BP 118 / 78; Pulse 62; Resp 18; Pulse Ox 98% on R/A; ph 08:22 BP 115 / 75; Pulse 54; Resp 16; Pulse Ox 100% ; sv 05:54 Body Mass Index 44.93 (122.47 kg, 165.10 cm) rv ED Course: 05:46 Patient arrived in ED. ag3 05:46 Rufus Catalan, SHARON is Primary Nurse. rv 05:55 Triage completed. rv 05:58 Arm band placed on Patient placed in the treatment room, on a stretcher, Patient rv notified of wait time. 05:58 Initial lab(s) drawn, by ED staff, sent to lab. Inserted saline lock: 20 gauge in right rv forearm, using aseptic technique. Blood collected. 05:59 Patient has correct armband on for positive identification. Bed in low position. Call rv light in reach. Side rails up X 1. Pulse ox on. NIBP on. 06:11 Kvng Tavares NP is PHCP. pm1 06:11 Erik Baltazar MD is Attending Physician. pm1 06:50 Radiology exam delayed due to Patient currently in restroom. kw1 07:32 CT Abd/Pelvis - IV Contrast Only In Process Unspecified. EDMS 08:01 No provider procedures requiring assistance completed. ph 08:34 IV discontinued, intact, bleeding controlled, No redness/swelling at site. Pressure ph dressing applied. Administered Medications: 06:07 Drug: Zofran (Ondansetron) 4 mg Route: IVP; Site: right forearm; rr5 08:36 Follow up: Response: No adverse reaction ph 06:07 Drug: NS 0.9% 1000 ml Route: IV; Rate: 1 bolus; Site: right forearm; rr5 08:36 Follow up: Response: No adverse reaction; IV Status: Completed infusion; IV Intake: ph 1000ml 06:27 Drug: TORadol - Ketorolac 15 mg Route: IVP; Site: right forearm; rv 08:37 Follow up: Response: No adverse reaction ph 07:50 Drug: Phenergan 12.5 mg Route: IVP; Site: right antecubital; ph 08:37 Follow up: Response: No adverse reaction ph 07:59 Drug: Pepcid 20 mg Route: IVP; Site: right antecubital; ph 08:37 Follow up: Response: No adverse reaction ph Intake: 08:36 IV: 1000ml; Total: 1000ml. ph Outcome: 08:21 Discharge ordered by MD. pm1 08:34 Discharged to home ambulatory, with significant other. ph 08:34 Condition: good 08:34 Discharge instructions given to patient, significant other, Instructed on discharge instructions, follow up and referral plans. medication usage, Demonstrated understanding of instructions, follow-up care, medications, Prescriptions given X 3. 08:37 Patient left the ED. ph Signatures: Dispatcher [employer] EDMS Nakita Barrow RN RN Rubin Noyola RN RN Aarti Su RN RN Kvng Tavares, [employer] THEATER SET PRODUCTION DESIGNER pm1 Ivon Sanchez kw1 Rufus Catalan RN RN Tere Hopkins ag3 Abilio Larkin, RN RN rr5 Corrections: (The following items were deleted from the chart) 06:35 06:34 BP 123 / 81; Pulse 80bpm; Resp 17bpm; Pulse Ox 98%; rr5 rr5 06:57 06:34 Reassessment: Patient appears in no apparent distress at this time. oral contrast rr5 given by CT staff. rr5
--- NOTE | 2019-11-22 08:22 | EDPHYS ---
Physician Documentation [facility] Name: Yandy Dawkins Age: 23 yrs Sex: Female : 1995 Arrival Date: 11/22/2019 Time: 05:46 Bed 5 Private MD: ED Physician Erik Baltazar HPI: 11/21 06:21 This 23 yrs old Female presents to ER via Ambulatory with complaints of pm1 Vomiting. 06:21 The patient presents to the emergency department with vomiting, 5 times since the onset pm1 of symptoms, described as bilious, abdominal pain, of the left upper quadrant, described as burning, gassy, and does not radiate. Onset: The symptoms/episode began/occurred yesterday morning. Possible causes: unknown. The symptoms are aggravated by nothing. The symptoms are alleviated by nothing. Associated signs and symptoms: Pertinent positives: abdominal pain, nausea, vomiting, Pertinent negatives: constipation, diarrhea, dysuria, fever. The patient has experienced similar episodes in the past, several times. 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 - Social history:: Smoking status: Patient reports the use of cigarette tobacco products, smokes one pack cigarettes per day. ROS: 06:21 Constitutional: Negative for fever, chills, and weight loss, Cardiovascular: Negative pm1 for chest pain, palpitations, and edema, Respiratory: Negative for shortness of breath, cough, wheezing, and pleuritic chest pain. 06:21 Back: Negative for injury and pain, : Negative for injury, bleeding, discharge, and swelling, MS/Extremity: Negative for injury and deformity, Skin: Negative for injury, rash, and discoloration, Neuro: Negative for headache, weakness, numbness, tingling, and seizure. 06:21 Abdomen/GI: Positive for abdominal pain, nausea and vomiting, of the left upper quadrant, Negative for diarrhea, constipation. 06:21 All other systems are negative. Exam: 06:21 Constitutional: This is a well developed, well nourished patient who is awake, alert, pm1 and in no acute distress. Head/Face: Normocephalic, atraumatic. Chest/axilla: Normal chest wall appearance and motion. Nontender with no deformity. No lesions are appreciated. 06:21 Back: No spinal tenderness. No costovertebral tenderness. Full range of motion. Skin: Warm, dry with normal turgor. Normal color with no rashes, no lesions, and no evidence of cellulitis. MS/ Extremity: Pulses equal, no cyanosis. Neurovascular intact. Full, normal range of motion. 06:21 Cardiovascular: Exam negative for acute changes, Rate: normal, Rhythm: regular, Pulses: no pulse deficits are appreciated. 06:21 Respiratory: Exam negative for acute changes, respiratory distress, shortness of breath. 06:21 Abdomen/GI: Exam negative for acute changes, Inspection: obese Palpation: abdomen is soft and non-tender, in all quadrants, mass, is not appreciated, rebound tenderness, is not appreciated. 06:21 Neuro: Exam negative for acute changes, Orientation: is normal, Motor: is normal, moves all fours. Vital Signs: 05:54 BP 122 / 77; Pulse 86; Resp 18; Temp 98.3; Pulse Ox 100% ; Weight 122.47 kg; Height 5 rv ft. 5 in. (165.10 cm); Pain 8/10; 06:34 BP 123 / 81; Pulse 60; Resp 17; Pulse Ox 98% ; rr5 08:00 BP 118 / 78; Pulse 62; Resp 18; Pulse Ox 98% on R/A; ph 08:22 BP 115 / 75; Pulse 54; Resp 16; Pulse Ox 100% ; sv 05:54 Body Mass Index 44.93 (122.47 kg, 165.10 cm) rv MDM: 06:11 Patient medically screened. pm1 06:25 Data reviewed: vital signs. Data interpreted: Pulse oximetry: on room air is 100 %. pm1 Interpretation: normal. 07:41 Counseling: I had a detailed discussion with the patient and/or guardian regarding: the pm1 historical points, exam findings, and any diagnostic results supporting the discharge/admit diagnosis, lab results, radiology results, the need for outpatient follow up, a or first assist registered nurse, to return to the emergency department if symptoms worsen or persist or if there are any questions or concerns that arise at home. 11/21 05:58 Order name: Basic Metabolic Panel; Complete Time: 06:39 rr5 11/21 05:58 Order name: CBC with Diff; Complete Time: 06:26 rr5 11/21 05:58 Order name: Hepatic Function; Complete Time: 06:39 rr5 11/21 05:58 Order name: Lipase; Complete Time: 06:39 rr5 11/21 06:05 Order name: Urine Dipstick--Ancillary (enter results); Complete Time: 06:26 mw2 11/21 06:05 Order name: Urine --Ancillary (enter results); Complete Time: 06:26 mw2 11/21 05:58 Order name: IV Saline Lock; Complete Time: 05:59 rr5 11/21 05:58 Order name: Labs collected and sent; Complete Time: 05:59 rr5 11/21 06:27 Order name: CT Abd/Pelvis - IV Contrast Only; Complete Time: 07:38 pm1 11/21 05:58 Order name: Urine Dipstick-Ancillary (obtain specimen); Complete Time: 06:01 rr5 11/21 05:58 Order name: Urine Test (obtain specimen); Complete Time: 06:01 rr5 Administered Medications: 06:07 Drug: Zofran (Ondansetron) 4 mg Route: IVP; Site: right forearm; rr5 08:36 Follow up: Response: No adverse reaction ph 06:07 Drug: NS 0.9% 1000 ml Route: IV; Rate: 1 bolus; Site: right forearm; rr5 08:36 Follow up: Response: No adverse reaction; IV Status: Completed infusion; IV Intake: ph 1000ml 06:27 Drug: TORadol - Ketorolac 15 mg Route: IVP; Site: right forearm; rv 08:37 Follow up: Response: No adverse reaction ph 07:50 Drug: Phenergan 12.5 mg Route: IVP; Site: right antecubital; ph 08:37 Follow up: Response: No adverse reaction ph 07:59 Drug: Pepcid 20 mg Route: IVP; Site: right antecubital; ph 08:37 Follow up: Response: No adverse reaction ph Disposition: 11/22/19 08:21 Discharged to Home. Impression: Nausea and vomiting, Unspecified abdominal pain. - Condition is Stable. - Discharge Instructions: Abdominal Pain, Adult, Nausea and Vomiting, Adult. - Prescriptions for Phenergan 25 mg Rectal Suppository - insert 1 suppository by RECTAL route every 6 hours As needed; 12 suppository. promethazine 25 mg Oral Tablet - take 1 tablet by ORAL route every 6 hours As needed; 20 tablet. Pepcid 20 mg Oral Tablet - take 1 tablet by ORAL route every 12 hours for 10 days; 20 tablet. - Medication Reconciliation Form, Thank You Letter, Antibiotic Education, Prescription Opioid Use form. - Follow up: Emergency Department; When: As needed; Reason: Worsening of condition. Follow up: Private Physician; When: 2 - 3 days; Reason: Recheck today's complaints, Continuance of care, Re-evaluation by your physician. - Problem is new. - Symptoms have improved. Signatures: Dispatcher [employer] EDMS Aarti Su, SHARON RN ph Kvng Tavares, GUERA SUBASSEMBLY SUPERVISOR pm1 Rufus Catalan RN RN rv Abilio Larkin RN RN rr5 Corrections: (The following items were deleted from the chart) 08:37 08:21 11/22/2019 08:21 Discharged to Home. Impression: Nausea and vomiting; Unspecified ph abdominal pain. Condition is Stable. Discharge Instructions: Nausea and Vomiting, Adult. Prescriptions for Phenergan 25 mg Rectal Suppository - insert 1 suppository by RECTAL route every 6 hours As needed; 12 suppository, promethazine 25 mg Oral Tablet - take 1 tablet by ORAL route every 6 hours As needed; 20 tablet. and Forms are Medication Reconciliation Form, Thank You Letter, Antibiotic Education, Prescription Opioid Use. Follow up: Emergency Department; When: As needed; Reason: Worsening of condition. Follow up: Private Physician; When: 2 - 3 days; Reason: Recheck today's complaints, Continuance of care, Re-evaluation by your physician. Problem is new. Symptoms have improved. pm1
[2019-11-22 08:45] VITALS: TEMP 98.3
[2019-11-22 08:49] VITALS: BP 115/75; O2SAT 100
== END 2019-11-22 08:37 | disposition home or self-care (01) ==
LOC: ER 05:43
DX: R10.12 Left upper quadrant pain (principal); F17.210 Nicotine dependence, cigarettes, uncomplicated; Z88.5 Allergy status to narcotic agent
CPT/HCPCS: 85025; 80048; 36415; 81025; 80076; 81003; 83690; 74177; 99284; Q9967; J2550; J7030; J2405; 96374; 96375

== ENCOUNTER 2020-02-27 05:49 | Emergency (ER) | payer OTHER ==
--- OUTSIDE RECORDS SUMMARY | 2020-02-27 05:58 | XMS REPORT | Continuity of Care Document ---
:1995 Author Organization [facility] t Address [address] Benedict [address] [place] [id number] Care Team Providers Name Role Phone Unavailable Unavailable Unavailable Problems This patient has no known problems. Allergies, Adverse Reactions, Alerts This patient has no known allergies or adverse reactions. Medications This patient has no known medications. Procedures This patient has no known procedures. Results This patient has no known results.
--- NOTE | 2020-02-27 06:22 | ER ---
Nurse's Notes [facility] Name: Yandy Dawkins Age: 24 yrs Sex: Female : 1995 Arrival Date: 02/27/2020 Time: 05:52 Bed Waiting Private MD: Diagnosis: Presentation: 02/26 05:55 Coronavirus screen: Client denies travel out of the [place] in the last 14 days. At this sg time, the client does not indicate any symptoms associated with coronavirus-19. Ebola Screen: Patient negative for fever greater than or equal to 101.5 degrees Fahrenheit, and additional compatible Ebola Virus Disease symptoms Patient denies exposure to infectious person. Patient denies travel to an Ebola-affected area in the 21 days before illness onset. No symptoms or risks identified at this time. Initial Sepsis Screen: Does the patient meet any 2 criteria? No. Patient's initial sepsis screen is negative. Does the patient have a suspected source of infection? No. Patient's initial sepsis screen is negative. Risk Assessment: Do you want to hurt yourself or someone else? Patient reports no desire to harm self or others. Onset of symptoms was February 27, 2020. Care prior to arrival: None. Transition of care: patient was not received from another setting of care. 05:55 Acuity: SREEKANTH 3 sg 05:55 Method Of Arrival: Ambulatory sg 05:55 Chief complaint: Patient states: Vomiting, began last night, worsening this morning. sg Historical: - Allergies: 05:56 HYDROCODONE; sg - PMHx: 05:56 Anxiety; Bipolar disorder; Depression; sg - PSHx: 05:56 Cholecystectomy; sg - Immunization history:: Adult Immunizations up to date. - Social history:: Smoking status: Patient denies any tobacco usage or history of. Assessment: 05:55 Reassessment: pt awaiting for exam room at this time, updated on approx wait time. sg 06:15 Reassessment: pt yelling at hospital screener at this time, pt states " I dont have to sg wear that fucking mask." pt throwing away mask at this time while threatening to throw water on the hospital screener. pt eloped from the ED lobby at this time. Vital Signs: 05:55 sg 05:55 pt refusing VS, reports she will have them done in an exam room in the back ED Course: 05:52 Patient arrived in ED. ag3 05:55 Arm band placed on. sg 05:56 Triage completed. sg Administered Medications: No medications were administered Outcome: 06:21 Patient left the ED. sg 06:55 Eloped from waiting room, post triage evaluation and consult. pt had a verbal sg confrontation with hospital staff, stated she will be leaving now 06:55 Condition: stable Signatures: Rubin Noyola, RN RN Tere Hopkins ag3
== END 2020-02-27 06:21 | disposition left against medical advice (07) ==
LOC: ER 05:49
DX: Z53.21 Procedure and treatment not carried out due to patient leaving prior to being seen by health care provider (principal)
CPT/HCPCS: 99281

== ENCOUNTER 2020-08-26 07:13 | Emergency (ER) | payer OTHER ==
--- OUTSIDE RECORDS SUMMARY | 2020-08-26 07:16 | XMS REPORT | Continuity of Care Document ---
:1995 Author Organization [facility] t Address [address] [place] [address] Dr. Benedict [address] [place] [id number] Care Team Providers Name Role Phone Unavailable Unavailable Unavailable Problems This patient has no known problems. Allergies, Adverse Reactions, Alerts This patient has no known allergies or adverse reactions. Medications This patient has no known medications. Procedures This patient has no known procedures. Results This patient has no known results.
[2020-08-26 09:12] LABS: Absolute Lymphocytes (CBC) 1.6 K/uL (0.7-4.9); Basophils % 0.7 % (0-1.3); Hematocrit 40.6 % (36.0-45.0); MPV 6.8 fL (7.6-11.3); RBC Red Blood Cell Count 4.88 M/uL (3.86-4.86)
[2020-08-26 09:33] LABS: ALT/SGPT 28 U/L (12-78); AST/SGOT 16 U/L (15-37); Alkaline Phosphatase 74 U/L (45-117); BUN Blood Urea Nitrogen 16 mg/dL (7-18); Bicarbonate 26 mmol/L (21-32); Bilirubin Direct < 0.1 mg/dL (0-0.2); Bilirubin Total 0.5 mg/dL (0.2-1.0); Glucose Level 98 mg/dL (74-106); Lipase 63 U/L (73-393); Potassium 3.3 mmol/L (3.5-5.1); Protein, Total 8.3 g/dL (6.4-8.2); Sodium Level 138 mmol/L (136-145)
[2020-08-26] MEDS ORDERED: FAMOTIDINE 20 MG/2 ML VIAL IV ONE (09:34)
[2020-08-26] MEDS ORDERED: ONDANSETRON 4 MG/2 ML VIAL ONE (09:34)
[2020-08-26] MEDS ORDERED: NA CHLORIDE 0.9% 1,000 ML ONE (09:34)
[2020-08-26 09:48] LABS: Urine Blood Negative (Negative); Urine Glucose Negative (Negative); Urine Protein 2+ (Negative); Urine Specific Gravity >=1.030 (1.005-1.030)
--- NOTE | 2020-08-26 10:28 | RAD REPORT ---
EXAM DESCRIPTION: CT - Abdomen Pelvis W Contrast - 08/26/2020 10:13 am CLINICAL HISTORY: Abdominal pain COMPARISON: 2019 TECHNIQUE: Computed axial tomography of the abdomen pelvis was obtained. 100 cc Isovue-300 was admin istered intravenously. Oral contrast was not requested which limits evaluation of bowel. All CT scans are performed using dose optimization technique as appropriate and may include automated exposure control or mA/KV adjustment according to patient size. FINDINGS: The liver, spleen, pancreas, adrenal and kidneys appear unremarkable. There is no evidence of diverticulitis. Normal appendix. Cholecystectomy 3.4 centimeter right ovarian cyst without significant free fluid IMPRESSION: 3.4 centimeter right ovarian cyst without significant free fluid
[2020-08-26 10:34] LABS: Urine Specific Gravity/Preg >1.030 (1.005-1.030)
--- NOTE | 2020-08-26 11:48 | EDPHYS ---
Physician Documentation [facility] Name: Yandy Dawkins Age: 24 yrs Sex: Female : 1995 Arrival Date: 08/26/2020 Time: 07:16 Bed 17 Private MD: ED Physician Maurice Pizarro HPI: 08/26 18:17 This 24 yrs old Female presents to ER via Ambulatory with complaints of kdr Vomiting, Abdominal Pain. 18:17 The patient presents to the emergency department with nausea, that is moderate, that is kdr severe, with "dry heaves", vomiting, Onset: The symptoms/episode began/occurred gradually, 2 day(s) ago. Possible causes: unknown. The symptoms are aggravated by movement, food , The symptoms are alleviated by nothing. Associated signs and symptoms: Pertinent positives: abdominal pain, diarrhea, nausea. Severity of symptoms: At their worst the symptoms were mild moderate in the emergency department the symptoms are unchanged. The patient has not experienced similar symptoms in the past. The patient has not recently seen a physician. 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 - Social history:: Smoking status: Patient reports the use of cigarette tobacco products, smokes one pack cigarettes per day. ROS: 18:17 Constitutional: Negative for fever, chills, and weight loss, Eyes: Negative for injury, kdr pain, redness, and discharge, ENT: Negative for injury, pain, and discharge, Neck: Negative for injury, pain, and swelling, Cardiovascular: Negative for chest pain, palpitations, and edema, Respiratory: Negative for shortness of breath, cough, wheezing, and pleuritic chest pain, Back: Negative for injury and pain, : Negative for injury, bleeding, discharge, and swelling, MS/Extremity: Negative for injury and deformity, Skin: Negative for injury, rash, and discoloration, Neuro: Negative for headache, weakness, numbness, tingling, and seizure activity. Psych: Negative for depression, anxiety, suicide ideation, homicidal ideation, and hallucinations, Allergy/Immunology: Negative for hives, rash, and allergies, Endocrine: Negative for neck swelling, polydipsia, polyuria, polyphagia, and marked weight changes, Hematologic/Lymphatic: Negative for swollen nodes, abnormal bleeding, and unusual bruising. 18:17 Abdomen/GI: Positive for abdominal pain, nausea and vomiting, nausea, vomiting, and diarrhea, diarrhea, Negative for black/tarry stool, rectal pain, rectal bleeding, bowel incontinence. Exam: 18:17 Constitutional: This is a well developed, well nourished patient who is awake, alert, kdr and in no acute distress. Head/Face: Normocephalic, atraumatic. Eyes: Pupils equal round and reactive to light, extra-ocular motions intact. Lids and lashes normal. Conjunctiva and sclera are non-icteric and not injected. Cornea within normal limits. Periorbital areas with no swelling, redness, or edema. Neck: Trachea midline, no thyromegaly or masses palpated, and no cervical lymphadenopathy. Supple, full range of motion without nuchal rigidity, or vertebral point tenderness. No Meningismus. Chest/axilla: Normal chest wall appearance and motion. Nontender with no deformity. No lesions are appreciated. Cardiovascular: Regular rate and rhythm with a normal S1 and S2. No gallops, murmurs, or rubs. Normal PMI, no JVD. No pulse deficits. Respiratory: Lungs have equal breath sounds bilaterally, clear to auscultation and percussion. No rales, rhonchi or wheezes noted. No increased work of breathing, no retractions or nasal flaring. Abdomen/GI: Soft, non-tender, with normal bowel sounds. No distension or tympany. No guarding or rebound. No evidence of tenderness throughout. Back: No spinal tenderness. No costovertebral tenderness. Full range of motion. Skin: Warm, dry with normal turgor. Normal color with no rashes, no lesions, and no evidence of cellulitis. MS/ Extremity: Pulses equal, no cyanosis. Neurovascular intact. Full, normal range of motion. Neuro: Awake and alert, GCS 15, oriented to person, place, time, and situation. Cranial nerves II-XII grossly intact. Motor strength 5/5 in all extremities. Sensory grossly intact. Cerebellar exam normal. Normal gait. Psych: Awake, alert, with orientation to person, place and time. Behavior, mood, and affect are within normal limits. Vital Signs: 07:31 BP 109 / 77; Pulse 89; Resp 18 S; Temp 97.2(TE); Pulse Ox 98% on R/A; Weight 131.54 kg aa5 (R); Height 5 ft. 5 in. (165.10 cm) (R); Pain 8/10; 09:35 BP 119 / 77; Pulse 90; Resp 16; Temp 97.6(TE); Pulse Ox 99% on R/A; mh5 10:31 BP 93 / 69; Pulse 76; Resp 16 S; Pulse Ox 98% on R/A; ca1 11:30 BP 106 / 58; Pulse 56; Resp 18 S; Pulse Ox 98% on R/A; ca1 12:18 BP 106 / 80; Pulse 52; Resp 16 S; Pulse Ox 99% on R/A; ca1 07:31 Body Mass Index 48.26 (131.54 kg, 165.10 cm) aa5 MDM: 11:47 Patient medically screened. kdr 18:17 Response to treatment: the patient's symptoms have markedly improved after treatment, kdr patient is well hydrated. Special discussion: Based on the patient's Hx, exam, and Dx evaluation, there is no indication for emergent surgery or inpatient Tx. It is understood by the patient/guardian that if the Sx's persist or worsen they need to return immediately for re-evaluation. I discussed with the patient/guardian in detail that at this point there is no indication for admission to the hospital. It is understood, however, that if the symptoms persist or worsen the patient needs to return immediately for re-evaluation. 18:23 Data reviewed: vital signs, nurses notes, lab test result(s), radiologic studies. kdr Counseling: I had a detailed discussion with the patient and/or guardian regarding: the historical points, exam findings, and any diagnostic results supporting the discharge/admit diagnosis, lab results, radiology results, the need for outpatient follow up. 08/26 08:32 Order name: Basic Metabolic Panel; Complete Time: 09:57 kdr 08/26 08:32 Order name: CBC with Diff; Complete Time: 09:57 kdr 08/26 08:32 Order name: Hepatic Function; Complete Time: 09:57 kdr 08/26 08:32 Order name: Lipase; Complete Time: 09:57 kdr 08/26 09:47 Order name: Urine --Ancillary (enter results); Complete Time: 11:40 em1 08/26 09:48 Order name: Urine Dipstick-Ancillary; Complete Time: 09:57 EDMS 08/26 08:32 Order name: IV Saline Lock; Complete Time: 09:12 kdr 08/26 08:32 Order name: Labs collected and sent; Complete Time: 09:12 kdr 08/26 08:41 Order name: CT Abd/Pelvis - IV Contrast Only; Complete Time: 11:40 kdr Administered Medications: 09:26 Drug: NS 0.9% 1000 ml Route: IV; Rate: 1 bolus; Site: right antecubital; sr5 10:34 Follow up: Response: No adverse reaction; IV Status: Completed infusion; IV Intake: ca1 1000ml 09:27 Drug: Zofran (Ondansetron) 4 mg Route: IVP; Site: right antecubital; sr5 10:35 Follow up: Response: No adverse reaction; Nausea is decreased; Vomiting decreased ca1 09:29 Drug: Pepcid (famotidine) 20 mg Route: IVP; Site: right antecubital; sr5 10:35 Follow up: Response: No adverse reaction; Pain is decreased ca1 12:07 Drug: fentaNYL (PF) 25 mcg Route: IVP; Site: right antecubital; aa5 12:28 Follow up: Response: No adverse reaction; Pain is decreased ca1 Disposition: 08/26/20 11:47 Discharged to Home. Impression: Nausea and vomiting, Abdominal and pelvic pain. - Condition is Stable. - Discharge Instructions: Nausea and Vomiting, Adult, [id number], Abdominal Pain, Adult, [id number]. - Prescriptions for Bentyl 20 mg Oral Tablet - take 1 tablet by ORAL route every 6 hours As needed; 20 tablet. Pepcid 20 mg Oral Tablet - take 1 tablet by ORAL route every 12 hours for 5 days; 10 tablet. Zofran 4 mg Oral Tablet - take 1 tablet by ORAL route every 12 hours As needed; 12 tablet. Tramadol 50 mg Oral Tablet - take 1 tablet by ORAL route every 8 hours as needed; 12 tablet. - Medication Reconciliation Form, Thank You Letter, Prescription Opioid Use form. - Follow up: Private Physician; When: 2 - 3 days; Reason: If symptoms return, Further diagnostic work-up, Recheck today's complaints, Continuance of care, Re-evaluation by your physician. - Problem is new. - Symptoms have improved. Signatures: Dispatcher [employer] Maurice Richard MD MD kdr Calderon, Audri, RN RN aa5 Jassi Chahal RN RN sr5 Jaqueline Peraza RN ca1 Corrections: (The following items were deleted from the chart) 12:36 11:47 08/26/2020 11:47 Discharged to Home. Impression: Nausea and vomiting; Abdominal aa5 and pelvic pain. Condition is Stable. Forms are Medication Reconciliation Form, Thank You Letter, Antibiotic Education, Prescription Opioid Use. Follow up: Private Physician; When: 2 - 3 days; Reason: If symptoms return, Further diagnostic work-up, Recheck today's complaints, Continuance of care, Re-evaluation by your physician. Problem is new. Symptoms have improved. kdr
--- NOTE | 2020-08-26 11:48 | ER ---
Nurse's Notes [facility] Name: Yandy Dawkins Age: 24 yrs Sex: Female : 1995 Arrival Date: 08/26/2020 Time: 07:16 Bed 17 Private MD: Diagnosis: Nausea and vomiting;Abdominal and pelvic pain Presentation: 08/26 07:31 Chief complaint: Patient states: vomiting and upper abd pain x 3 days ago. Pt denies aa5 diarrhea. Coronavirus screen: nausea, vomiting. Ebola Screen: Patient negative for fever greater than or equal to 101.5 degrees Fahrenheit, and additional compatible Ebola Virus Disease symptoms. Initial Sepsis Screen: Does the patient meet any 2 criteria? No. Patient's initial sepsis screen is negative. Does the patient have a suspected source of infection? No. Patient's initial sepsis screen is negative. Risk Assessment: Do you want to hurt yourself or someone else? Patient reports no desire to harm self or others. Onset of symptoms was August 2020. 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 - Social history:: Smoking status: Patient reports the use of cigarette tobacco products, smokes one pack cigarettes per day. Screenin:20 Abuse screen: Denies threats or abuse. Denies injuries from another. Nutritional ca1 screening: No deficits noted. Tuberculosis screening: No symptoms or risk factors identified. Fall Risk IV access (20 points). Assessment: 09:21 General: Appears in no apparent distress. comfortable, Behavior is calm, cooperative, ca1 appropriate for age. Pain: Complains of pain in right upper quadrant and left upper quadrant Pain currently is 8 out of 10 on a pain scale. Pain began 2-3 days ago. Neuro: Level of Consciousness is awake, alert, obeys commands, Oriented to person, place, time, situation. Cardiovascular: Heart tones S1 S2 Capillary refill < 3 seconds Patient's skin is warm and dry. Respiratory: Airway is patent Respiratory effort is even, unlabored, Respiratory pattern is regular, symmetrical, Breath sounds are clear bilaterally. GI: Abdomen is round non-distended, Bowel sounds present X 4 quads. Abd is soft X 4 quads Abdomen is tender to palpation in right upper quadrant and left upper quadrant Reports nausea, vomiting. : No deficits noted. No signs and/or symptoms were reported regarding the genitourinary system. EENT: No deficits noted. No signs and/or symptoms were reported regarding the EENT system. Derm: Skin is intact, is healthy with good turgor, Skin is pink, warm \T\ dry. Musculoskeletal: Circulation, motion, and sensation intact. Capillary refill < 3 seconds. 09:50 Reassessment: provided ice chips, ok'd by Dr. Pizarro. ca1 10:34 Reassessment: Patient appears in no apparent distress at this time. Patient and/or ca1 family updated on plan of care and expected duration. Pain level reassessed. Patient is alert, oriented x 3, equal unlabored respirations, skin warm/dry/pink. Pain: Complains of pain in left upper quadrant and right upper quadrant Pain currently is 5 out of 10 on a pain scale. 11:19 Reassessment: Patient appears in no apparent distress at this time. Patient and/or ca1 family updated on plan of care and expected duration. Pain level reassessed. Patient is alert, oriented x 3, equal unlabored respirations, skin warm/dry/pink. 12:18 Reassessment: Patient appears in no apparent distress at this time. Patient and/or ca1 family updated on plan of care and expected duration. Pain level reassessed. Patient is alert, oriented x 3, equal unlabored respirations, skin warm/dry/pink. 12:35 Reassessment: Patient is alert, oriented x 3, equal unlabored respirations, skin aa5 warm/dry/pink. Patient states feeling better. Vital Signs: 07:31 BP 109 / 77; Pulse 89; Resp 18 S; Temp 97.2(TE); Pulse Ox 98% on R/A; Weight 131.54 kg aa5 (R); Height 5 ft. 5 in. (165.10 cm) (R); Pain 8/10; 09:35 BP 119 / 77; Pulse 90; Resp 16; Temp 97.6(TE); Pulse Ox 99% on R/A; mh5 10:31 BP 93 / 69; Pulse 76; Resp 16 S; Pulse Ox 98% on R/A; ca1 11:30 BP 106 / 58; Pulse 56; Resp 18 S; Pulse Ox 98% on R/A; ca1 12:18 BP 106 / 80; Pulse 52; Resp 16 S; Pulse Ox 99% on R/A; ca1 07:31 Body Mass Index 48.26 (131.54 kg, 165.10 cm) aa5 ED Course: 07:16 Patient arrived in ED. as 07:31 Arm band placed on. aa5 07:33 Triage completed. aa5 08:32 Maurice Pizarro MD is Attending Physician. kdr 09:20 Jaqueline Peraza RN is Primary Nurse. ca1 09:20 Patient has correct armband on for positive identification. Placed in gown. Bed in low ca1 position. Call light in reach. Side rails up X 1. Pulse ox on. NIBP on. Warm blanket given. 10:13 CT Abd/Pelvis - IV Contrast Only In Process Unspecified. EDMS 12:35 No provider procedures requiring assistance completed. IV discontinued, intact, aa5 bleeding controlled, No redness/swelling at site. Pressure dressing applied. Administered Medications: 09:26 Drug: NS 0.9% 1000 ml Route: IV; Rate: 1 bolus; Site: right antecubital; sr5 10:34 Follow up: Response: No adverse reaction; IV Status: Completed infusion; IV Intake: ca1 1000ml 09:27 Drug: Zofran (Ondansetron) 4 mg Route: IVP; Site: right antecubital; sr5 10:35 Follow up: Response: No adverse reaction; Nausea is decreased; Vomiting decreased ca1 09:29 Drug: Pepcid (famotidine) 20 mg Route: IVP; Site: right antecubital; sr5 10:35 Follow up: Response: No adverse reaction; Pain is decreased ca1 12:07 Drug: fentaNYL (PF) 25 mcg Route: IVP; Site: right antecubital; aa5 12:28 Follow up: Response: No adverse reaction; Pain is decreased ca1 Intake: 10:34 IV: 1000ml; Total: 1000ml. ca1 Outcome: 11:47 Discharge ordered by . kdr 12:35 Discharged to home ambulatory. aa5 12:35 Condition: improved 12:35 Discharge instructions given to patient, Instructed on discharge instructions, follow up and referral plans. medication usage, Demonstrated understanding of instructions, follow-up care, medications, Prescriptions given X 4. 12:36 Patient left the ED. aa5 Signatures: Dispatcher [employer] EDMS Maurice Pizarro MD MD kdr Martinez, Amelia as Calderon, Audri RN RN aa5 Jassi Chahal RN RN 5 Rylie Forrester [facility] Jaqueline Peraza RN RN ca1 Corrections: (The following items were deleted from the chart) 10:34 09:21 Pain: Complains of pain in right upper quadrant and left upper quadrant Pain ca1 currently is 7 out of 10 on a pain scale. Pain began 2-3 days ago. ca1 12:19 10:31 BP 106 / 58; Pulse 56bpm; Resp 18bpm; Spontaneous; Pulse Ox 98% RA; ca1 ca1
[2020-08-26] MEDS ORDERED: FENTANYL CITR 100 MCG/2 ML ONE (12:24)
[2020-08-26 22:57] VITALS: TEMP 97.6
[2020-08-26 23:02] VITALS: BP 106/80; O2SAT 99
== END 2020-08-26 12:36 | disposition home or self-care (01) ==
LOC: ER 07:13
DX: R10.2 Pelvic and perineal pain (principal); F17.210 Nicotine dependence, cigarettes, uncomplicated; Z88.5 Allergy status to narcotic agent
CPT/HCPCS: 96361; 85025; 80048; 36415; 81025; 80076; 81003; 83690; 74177; 96375; 96374; 99284; Q9967; J3010; J7030; J2405

== ENCOUNTER 2020-10-29 20:22 | Emergency (ER) | payer OTHER ==
[2020-10-29 23:30] LABS: Absolute Lymphocytes (CBC) 1.9 K/uL (0.7-4.9); Basophils % 0.6 % (0-1.3); Hematocrit 43.8 % (36.0-45.0); Lymphocytes % 16.1 % (15.3-44.8); RBC Red Blood Cell Count 5.29 M/uL (3.86-4.86)
[2020-10-29 23:45] LABS: ALT/SGPT 36 U/L (12-78); AST/SGOT 23 U/L (15-37); Albumin 4.1 g/dL (3.4-5.0); Alkaline Phosphatase 77 U/L (45-117); BUN Blood Urea Nitrogen 15 mg/dL (7-18); Bicarbonate 26 mmol/L (21-32); Bilirubin Direct 0.1 mg/dL (0-0.2); Bilirubin Total 0.6 mg/dL (0.2-1.0); Glucose Level 85 mg/dL (74-106); Lipase 57 U/L (73-393); Potassium 3.2 mmol/L (3.5-5.1); Protein, Total 8.5 g/dL (6.4-8.2); Sodium Level 139 mmol/L (136-145)
[2020-10-30] MEDS ORDERED: DICYCLOMINE HCL 10 MG CAP ONE (00:06)
[2020-10-30] MEDS ORDERED: PROMETHAZINE INJ 25 MG/ML AMP ONE (00:06)
[2020-10-30] MEDS ORDERED: FAMOTIDINE 20 MG/2 ML VIAL IV ONE (00:06)
[2020-10-30] MEDS ORDERED: NA CHLORIDE 0.9% 1,000 ML ONE (00:16)
[2020-10-30 00:48] LABS: Urine Blood Negative (Negative); Urine Glucose Negative (Negative); Urine Protein 1+ (Negative); Urine Specific Gravity >=1.030 (1.005-1.030); Urine pH 5.5 (5.0-7.0)
[2020-10-30 00:51] LABS: Urine Specific Gravity/Preg >1.030 (1.005-1.030)
--- NOTE | 2020-10-30 01:55 | ER ---
Nurse's Notes [facility] Name: Yandy Dawkins Age: 24 yrs Sex: Female : 1995 Arrival Date: 10/29/2020 Time: 20:25 Bed 27 Private MD: Diagnosis: Colitis Presentation: 10/29 20:59 Chief complaint: Patient states: For the past three days patient has been vomiting and vg1 states RUQ and LUQ pain. States has had gallbladder removed in 2018. Also states having Diarrhea but also feels constipated and bloated. Coronavirus screen: Client denies travel out of the [place] in the last 14 days. Ebola Screen: Patient negative for fever greater than or equal to 101.5 degrees Fahrenheit, and additional compatible Ebola Virus Disease symptoms. Initial Sepsis Screen: Does the patient meet any 2 criteria? No. Patient's initial sepsis screen is negative. Does the patient have a suspected source of infection? No. Patient's initial sepsis screen is negative. Risk Assessment: Do you want to hurt yourself or someone else? Patient reports no desire to harm self or others. Onset of symptoms was October 26, 2020. 20:59 Method Of Arrival: Ambulatory vg1 20:59 Acuity: SREEKANTH 3 vg1 Triage Assessment: 21:02 General: Appears in no apparent distress. comfortable, Behavior is calm, cooperative. vg1 Pain: Complains of pain in right upper quadrant and left upper quadrant Pain currently is 7 out of 10 on a pain scale. GI: Reports upper abdominal pain, bloating, constipation, diarrhea, nausea, vomiting. 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 - Social history:: Smoking status: Patient reports the use of cigarette tobacco products, smokes one pack cigarettes per day. Screenin:48 Abuse screen: Denies threats or abuse. Denies injuries from another. Nutritional aj1 screening: No deficits noted. Tuberculosis screening: No symptoms or risk factors identified. 10/30 02:00 Fall Risk None identified. cr4 Assessment: 10/29 22:47 General: Appears in no apparent distress. comfortable, Behavior is calm, cooperative, aj1 appropriate for age. Pain: Complains of pain in left upper quadrant and right upper quadrant Pain does not radiate. Pain currently is 8 out of 10 on a pain scale. Quality of pain is described as aching. Neuro: Level of Consciousness is awake, alert, obeys commands, Oriented to person, place, time, situation. Cardiovascular: Patient's skin is warm and dry. Respiratory: Airway is patent Respiratory effort is even, unlabored, Respiratory pattern is regular, symmetrical. GI: Abdomen is non-distended, Bowel sounds present X 4 quads. Abd is soft X 4 quads Reports upper abdominal pain, nausea, vomiting. : No signs and/or symptoms were reported regarding the genitourinary system. EENT: No signs and/or symptoms were reported regarding the EENT system. Derm: No signs and/or symptoms reported regarding the dermatologic system. Skin is pink, warm \T\ dry. normal. Musculoskeletal: No signs and/or symptoms reported regarding the musculoskeletal system. Circulation, motion, and sensation intact. 10/30 00:23 Reassessment: Patient and/or family updated on plan of care and expected duration. Pain cr4 level reassessed. Patient is alert, oriented x 3, equal unlabored respirations, skin warm/dry/pink. Patient states symptoms have improved. Pain: Complains of pain in abdomen Pain currently is 6 out of 10 on a pain scale. 01:00 Reassessment: Patient and/or family updated on plan of care and expected duration. Pain cr4 level reassessed. Patient is alert, oriented x 3, equal unlabored respirations, skin warm/dry/pink. Patient states feeling better. 02:00 Reassessment: Patient and/or family updated on plan of care and expected duration. Pain cr4 level reassessed. Patient is alert, oriented x 3, equal unlabored respirations, skin warm/dry/pink. Patient states feeling better. Vital Signs: 10/29 20:59 BP 125 / 85; Pulse 84; Resp 16; Temp 98.3; Pulse Ox 98% ; Weight 131.54 kg; Height 5 vg1 ft. 5 in. (165.10 cm); Pain 7/10; 22:47 BP 141 / 83; Pulse 90; Resp 18; Pulse Ox 100% on R/A; aj1 10/30 00:23 BP 117 / 94; Pulse 78; Resp 16; Temp 97.1; Pulse Ox 97.1% ; Pain 6/10; cr4 01:15 BP 127 / 72; Pulse 79; Resp 18; Pulse Ox 100% ; Pain 6/10; cr4 02:00 BP 132 / 84; Pulse 54; Resp 17; Temp 97.8; Pulse Ox 99% ; Pain 4/10; cr4 10/29 20:59 Body Mass Index 48.26 (131.54 kg, 165.10 cm) [facility] ED Course: 10/29 20:25 Patient arrived in ED. bp1 21:01 Triage completed. vg1 21:02 Arm band placed on Patient placed in waiting room, Patient notified of wait time. vg1 22:47 Jessica Dawkins, RN is Primary Nurse. aj1 22:48 Patient has correct armband on for positive identification. Bed in low position. Call [facility] light in reach. 22:48 No provider procedures requiring assistance completed. aj1 22:51 Ever Hawley PA is PHCP. cp 22:51 Jai Bojorquez MD is Attending Physician. cp 23:20 Initial lab(s) drawn, by ct, sent to lab. Inserted saline lock: 20 gauge in right [facility] antecubital area, using aseptic technique. Blood collected. 10/30 01:13 CT Abd/Pelvis - IV Contrast Only Sent. cr4 01:17 CT Abd/Pelvis - IV Contrast Only In Process Unspecified. EDUT 01:54 Basilio Tobar MD is Referral Physician. cp 02:00 Nurse Practitioner and/or Physician Saturator Tender to see patient. cr4 02:15 IV discontinued, intact, bleeding controlled, No redness/swelling at site. cr4 Administered Medications: 10/29 23:51 Drug: Pepcid (famotidine) 20 mg Route: IVP; Site: right antecubital; [facility] 10/30 01:03 Follow up: Response: No adverse reaction cr4 10/29 23:51 Drug: Phenergan (promethazine) 25 mg Route: IVP; Site: right antecubital; [facility] 10/30 01:02 Follow up: Response: No adverse reaction; Nausea is decreased cr4 00:00 Drug: NS 0.9% 1000 ml Route: IV; Rate: 1 bolus; Site: right antecubital; aj1 01:10 Follow up: IV Status: Completed infusion; IV Intake: 1000ml cr4 00:05 Drug: Bentyl (dicyclomine) 20 mg Route: PO; cr4 01:03 Follow up: Response: No adverse reaction cr4 01:50 Drug: Potassium Effervescent Tablet 50 mEq Route: PO; cr4 02:15 Follow up: Response: No adverse reaction cr4 01:50 Drug: morphine 4 mg Route: IVP; Site: right antecubital; cr4 02:15 Follow up: Response: Pain is decreased cr4 01:58 Drug: Zofran (Ondansetron) 4 mg Route: IVP; Site: right antecubital; cr4 02:15 Follow up: Response: No adverse reaction; Nausea is decreased cr4 02:00 Drug: Ciprofloxacin 500 mg Route: PO; cr4 02:15 Follow up: Response: No adverse reaction cr4 02:00 Drug: metroNIDAZOLE 500 mg Route: PO; cr4 02:15 Follow up: Response: No adverse reaction cr4 Intake: 01:10 IV: 1000ml; Total: 1000ml. cr4 Outcome: 01:54 Discharge ordered by MD. cp 02:20 Discharge instructions given to patient, Instructed on discharge instructions, follow cr4 up and referral plans. medication usage, Demonstrated understanding of instructions, follow-up care, medications, Prescriptions given X 4. 02:29 Patient left the ED. cr4 02:36 Discharged to home ambulatory, with family. cr4 02:36 Condition: improved Signatures: Dispatcher [employer] EDMS Jessica Dawkins RN RN aj1 Adina Aranda RN RN cr4 Ever Hawley PA PA cp Garcia, Victoria, RN RN vg1 Ronda Brooks [facility]
--- NOTE | 2020-10-30 01:55 | EDPHYS ---
Physician Documentation [facility] Name: Yandy Dawkins Age: 24 yrs Sex: Female : 1995 Arrival Date: 10/29/2020 Time: 20:25 Bed 27 Private MD: ED Physician Jai Bojorquez HPI: 10/29 23:05 This 24 yrs old Female presents to ER via Ambulatory with complaints of cp Vomiting, Abdominal Pain. 23:05 The patient presents with abdominal pain in the upper abdomen. Onset: The cp symptoms/episode began/occurred 3 day(s) ago. The patient presents to the emergency department with nausea, that is moderate, vomiting, that is intermittent, diarrhea, that is intermittent. Possible causes: unknown. 23:05 The symptoms do not radiate. Associated signs and symptoms: Pertinent positives: cp constipation, Pertinent negatives: dysuria, fever, GI bleeding, vaginal discharge. The symptoms are described as feels like I'm bloated. 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 - Social history:: Smoking status: Patient reports the use of cigarette tobacco products, smokes one pack cigarettes per day. ROS: 23:10 Constitutional: Negative for body aches, chills, fever, poor PO intake. cp 23:10 Eyes: Negative for injury, pain, redness, and discharge. cp 23:10 ENT: Negative for drainage from ear(s), ear pain, sore throat, difficulty swallowing, difficulty handling secretions. 23:10 Cardiovascular: Negative for chest pain, edema, palpitations. 23:10 Respiratory: Negative for cough, shortness of breath, wheezing. 23:10 Abdomen/GI: Positive for abdominal pain, nausea, vomiting, and diarrhea, constipation, Negative for hematemesis, black/tarry stool, rectal bleeding. 23:10 Back: Negative for radiated pain. 23:10 : Negative for urinary symptoms, vaginal bleeding, vaginal discharge. 23:10 Neuro: Negative for altered mental status, headache, weakness. 23:10 All other systems are negative. Exam: 23:15 Constitutional: The patient appears in no acute distress, alert, awake, non-toxic, well cp developed, well nourished. 23:15 Head/Face: Normocephalic, atraumatic. cp 23:15 Eyes: Periorbital structures: appear normal, Conjunctiva: normal, no exudate, no injection, Sclera: no appreciated abnormality, Lids and lashes: appear normal, bilaterally. 23:15 ENT: External ear(s): are unremarkable, Nose: is normal, Mouth: Lips: moist, Oral mucosa: moist, Posterior pharynx: Airway: no evidence of obstruction, patent. 23:15 Chest/axilla: Inspection: normal, Palpation: is normal, no crepitus, no tenderness. 23:15 Cardiovascular: Rate: normal, Rhythm: regular. 23:15 Respiratory: the patient does not display signs of respiratory distress, Respirations: normal, no use of accessory muscles, no retractions, labored breathing, is not present, Breath sounds: are clear throughout, no decreased breath sounds, no stridor, no wheezing. 23:15 Abdomen/GI: Inspection: abdomen appears normal, Bowel sounds: active, all quadrants, Palpation: soft, in all quadrants, moderate abdominal tenderness, in the left upper quadrant, rebound tenderness, is not appreciated, involuntary guarding, is not appreciated. 23:15 Back: pain, is absent, ROM is normal. Vital Signs: 20:59 BP 125 / 85; Pulse 84; Resp 16; Temp 98.3; Pulse Ox 98% ; Weight 131.54 kg; Height 5 vg1 ft. 5 in. (165.10 cm); Pain 7/10; 22:47 BP 141 / 83; Pulse 90; Resp 18; Pulse Ox 100% on R/A; aj1 10/30 00:23 BP 117 / 94; Pulse 78; Resp 16; Temp 97.1; Pulse Ox 97.1% ; Pain 6/10; cr4 01:15 BP 127 / 72; Pulse 79; Resp 18; Pulse Ox 100% ; Pain 6/10; cr4 02:00 BP 132 / 84; Pulse 54; Resp 17; Temp 97.8; Pulse Ox 99% ; Pain 4/10; cr4 10/29 20:59 Body Mass Index 48.26 (131.54 kg, 165.10 cm) vg1 MDM: 10/29 22:58 Patient medically screened. cp 10/30 01:54 Patient medically screened. 10/29 22:58 Order name: Basic Metabolic Panel; Complete Time: 00:04 cp 10/30 02:28 Interpretation: Normal except: K 3.2. cp 10/29 22:58 Order name: CBC with Diff; Complete Time: 00:04 cp 10/29 22:58 Order name: Hepatic Function; Complete Time: 00:04 cp 10/29 22:58 Order name: Lipase; Complete Time: 00:04 cp 10/29 23:15 Order name: Magnesium; Complete Time: 00:04 cp 10/30 00:48 Order name: Urine Dipstick-Ancillary; Complete Time: 01:39 EDMS 10/30 02:28 Interpretation: Normal except: UKET Trace; UPROT 1+; U NIT Positive. cp 10/29 23:15 Order name: CT Abd/Pelvis - IV Contrast Only 10/30 00:48 Order name: Urine --Ancillary (enter results); Complete Time: 01:39 mw2 10/29 22:58 Order name: IV Saline Lock; Complete Time: 23:20 cp 10/29 22:58 Order name: Labs collected and sent; Complete Time: 23:20 cp 10/29 22:58 Order name: Urine Dipstick-Ancillary (obtain specimen); Complete Time: 01:13 cp 10/29 22:58 Order name: Urine Test (obtain specimen); Complete Time: 01:13 cp Administered Medications: 10/29 23:51 Drug: Pepcid (famotidine) 20 mg Route: IVP; Site: right antecubital; aj10/30 01:03 Follow up: Response: No adverse reaction cr4 10/29 23:51 Drug: Phenergan (promethazine) 25 mg Route: IVP; Site: right antecubital; aj10/30 01:02 Follow up: Response: No adverse reaction; Nausea is decreased cr4 00:00 Drug: NS 0.9% 1000 ml Route: IV; Rate: 1 bolus; Site: right antecubital; aj 01:10 Follow up: IV Status: Completed infusion; IV Intake: 1000ml cr4 00:05 Drug: Bentyl (dicyclomine) 20 mg Route: PO; cr4 01:03 Follow up: Response: No adverse reaction cr4 01:50 Drug: Potassium Effervescent Tablet 50 mEq Route: PO; cr4 02:15 Follow up: Response: No adverse reaction cr4 01:50 Drug: morphine 4 mg Route: IVP; Site: right antecubital; cr4 02:15 Follow up: Response: Pain is decreased cr4 01:58 Drug: Zofran (Ondansetron) 4 mg Route: IVP; Site: right antecubital; cr4 02:15 Follow up: Response: No adverse reaction; Nausea is decreased cr4 02:00 Drug: Ciprofloxacin 500 mg Route: PO; cr4 02:15 Follow up: Response: No adverse reaction cr4 02:00 Drug: metroNIDAZOLE 500 mg Route: PO; cr4 02:15 Follow up: Response: No adverse reaction cr4 Disposition: 06:23 Co-signature as Attending Physician, Jai Bojorquez MD. 7 Disposition: 10/30/20 01:54 Discharged to Home. Impression: Colitis. - Condition is Stable. - Discharge Instructions: Urinary Tract Infection, Adult, Colitis. - Prescriptions for Cipro 500 mg Oral Tablet - take 1 tablet by ORAL route every 12 hours for 10 days; 20 tablet. Metronidazole 500 mg Oral Tablet - take 1 tablet by ORAL route every 8 hours; 30 tablet. Bentyl 20 mg Oral Tablet - take 1 tablet by ORAL route every 6 hours As needed; 30 tablet. Zofran 4 mg Oral Tablet - take 1 tablet by ORAL route every 12 hours As needed; 20 tablet. - Medication Reconciliation Form, Thank You Letter, Antibiotic Education, Prescription Opioid Use form. - Follow up: Basilio Tobar MD; When: 2 - 3 days; Reason: Recheck today's complaints. - Problem is new. - Symptoms have improved. Signatures: Dispatcher [employer] EDMS Jessica Dawkins RN RN aj1 Adina Aranda RN RN cr4 Ever Hawley PA PA cp Garcia, Victoria RN RN vg1 Jai Bojorquez MD MD [id number] Corrections: (The following items were deleted from the chart) 02:29 01:54 10/30/2020 01:54 Discharged to Home. Impression: Colitis. Condition is Stable. cr4 Forms are Medication Reconciliation Form, Thank You Letter, Antibiotic Education, Prescription Opioid Use. Follow up: Basilio Tobar; When: 2 - 3 days; Reason: Recheck today's complaints. Problem is new. Symptoms have improved. cp
[2020-10-30] MEDS ORDERED: CIPROFLOXACIN HCL 500 MG TAB ONE (02:05)
[2020-10-30] MEDS ORDERED: metroNIDAZOLE 500 MG TABLET ONE (02:05)
[2020-10-30] MEDS ORDERED: POTASSIUM 25 MEQ EFFERV TAB ONE (02:06)
[2020-10-30] MEDS ORDERED: MORPHINE 4 MG/ML SYR ONE (02:06)
[2020-10-30] MEDS ORDERED: ONDANSETRON 4 MG/2 ML VIAL ONE (02:16)
[2020-10-30 02:35] VITALS: O2SAT 100
[2020-10-30 02:36] VITALS: TEMP 97.1
[2020-10-30 02:38] VITALS: BP 127/72
--- NOTE | 2020-10-30 21:23 | RAD REPORT ---
EXAM DESCRIPTION: CT - Abdomen Pelvis W Contrast - 10/30/2020 6:35 am CLINICAL HISTORY: 24 years Female ABD PAIN COMPARISON: 08/26/2020. TECHNIQUE: Contiguous axial images obtained through the abdomen and pelvis following IV contrast. Re formatted images obtained. This exam was performed according to our department optimization program which includes automated exp osure control, adjustment of the mA and/or kv according to patient size and/or use of iterative recon struction technique. FINDINGS: The lung bases are clear. The liver appears unremarkable. The spleen and pancreas appear unremarkable. No adrenal masses. The kidneys appear unremarkable. No hydronephrosis. Changes from previous cholecystectomy. No aneurysmal dilatation of the aorta. No bowel obstruction. The appendix appears unremarkable. There is probable mild wall thickeni ng in portions of the colon suggesting changes from mild infectious/inflammatory colitis. No significant free pelvic fluid. 2.3 cm right ovarian cyst which is almost certainly benign. N o follow-up imaging is recommended for this cyst. IMPRESSION: There is probable mild wall thickening in portions of the colon suggesting changes from mild infectious/inflammatory colitis. Electronically signed by: Bill Quesada MD 10/30/2020 1:27 AM CDT Due to temporary technical issues with the PACS/Fluency reporting system, reports are being signed by the in house radiologists without review as a courtesy to insure prompt reporting. The interpreting radiologist is fully responsible for the content of the report.
== END 2020-10-30 02:29 | disposition home or self-care (01) ==
LOC: ER 20:22
DX: K52.9 Noninfective gastroenteritis and colitis, unspecified (principal); F17.210 Nicotine dependence, cigarettes, uncomplicated; Z88.5 Allergy status to narcotic agent
CPT/HCPCS: 85025; 80048; 36415; 83735; 81025; 80076; 81003; 83690; 74177; Q9967; J2405; 96361; 96374; 96375; 99284

== ENCOUNTER 2020-11-09 22:03 | Emergency (ER) | payer OTHER ==
--- OUTSIDE RECORDS SUMMARY | 2020-11-09 22:06 | XMS REPORT | Continuity of Care Document ---
:1995 Author Organization [facility] t Address [address] [place] [address] Dr. Benedict [address] [place] [id number] Care Team Providers Name Role Phone Unavailable Unavailable Unavailable Problems This patient has no known problems. Allergies, Adverse Reactions, Alerts This patient has no known allergies or adverse reactions. Medications This patient has no known medications. Procedures This patient has no known procedures. Results This patient has no known results.
--- NOTE | 2020-11-09 22:19 | ER ---
Nurse's Notes [facility] Name: Yandy Dawkins Age: 24 yrs Sex: Female : 1995 Arrival Date: 11/09/2020 Time: 22:08 Bed 4 Private MD: Diagnosis: ED Course: 11/09 22:08 Patient arrived in ED. am4 22:09 Cecy Paul FNP-C is [facility]. kb 22:09 Jai Bojorquez MD is Attending Physician. kb 22:19 Patient's name was called from [facility]. No response. Unable to locate patient. Will bb disposition as left without being seen by a provider. Administered Medications: No medications were administered Outcome: 22:19 Patient left the ED. bb Signatures: Cecy Paul FNP-C FNP-Ckb Ballard, Brenda, RN RN bb Natali Forrester am4
== END 2020-11-09 22:19 | disposition left against medical advice (07) ==
LOC: ER 22:03
DX: Z02.9 Encounter for administrative examinations, unspecified (principal)

== ENCOUNTER 2020-11-10 21:54 | Emergency (ER) | payer OTHER ==
--- OUTSIDE RECORDS SUMMARY | 2020-11-10 21:57 | XMS REPORT | Continuity of Care Document ---
:1995 Author Organization [facility] Address [address] [place] [address] Dr. Benedict [address] [place] [id number] Care Team Providers Name Role Phone Unavailable Unavailable Unavailable Problems This patient has no known problems. Allergies, Adverse Reactions, Alerts This patient has no known allergies or adverse reactions. Medications This patient has no known medications. Procedures This patient has no known procedures. Results This patient has no known results.
[2020-11-10 22:30] LABS: Absolute Lymphocytes (CBC) 1.5 K/uL (0.7-4.9); Basophils % 0.3 % (0-1.3); Hematocrit 42.5 % (36.0-45.0); Lymphocytes % 14.9 % (15.3-44.8); MPV 7.7 fL (7.6-11.3); RBC Red Blood Cell Count 5.13 M/uL (3.86-4.86)
[2020-11-10] MEDS ORDERED: NA CHLORIDE 0.9% 1,000 ML ONE (22:33)
[2020-11-10] MEDS ORDERED: FAMOTIDINE 20 MG/2 ML VIAL IV ONE (22:33)
[2020-11-10 22:57] LABS: ALT/SGPT 82 U/L (12-78); Albumin 3.9 g/dL (3.4-5.0); Alkaline Phosphatase 70 U/L (45-117); BUN Blood Urea Nitrogen 12 mg/dL (7-18); Bicarbonate 22 mmol/L (21-32); Bilirubin Direct 0.1 mg/dL (0-0.2); Bilirubin Total 0.8 mg/dL (0.2-1.0); Glucose Level 91 mg/dL (74-106); Lipase 67 U/L (73-393); Protein, Total 8.1 g/dL (6.4-8.2); Sodium Level 140 mmol/L (136-145)
[2020-11-10 22:58] LABS: AST/SGOT 61 U/L (15-37); Potassium 3.1 mmol/L (3.5-5.1)
[2020-11-10] MEDS ORDERED: KCL 20 MEQ/100 mL IVPB 20 MEQ/100 ML BAG IV ONE (23:55)
[2020-11-11] MEDS ORDERED: CIPROFLOXACIN 400mg IV 400 MG/200 ML BAG IV ONE (00:21)
[2020-11-11] MEDS ORDERED: METRONIDAZOLE 500mg IVPB 500 MG/100 ML BAG IV ONE (00:21)
[2020-11-11] MEDS ORDERED: ONDANSETRON 4 MG/2 ML VIAL ONE ×2 (00:54→01:48)
[2020-11-11] MEDS ORDERED: MORPHINE 2 MG/ML SYR ONE (00:54)
[2020-11-11 01:17] LABS: Urine Blood Negative (Negative); Urine Glucose Negative (Negative); Urine Protein 2+ (Negative); Urine Specific Gravity >=1.030 (1.005-1.030)
[2020-11-11] MEDS ORDERED: NA CHLORIDE 0.9% 1,000 ML ONE (01:26)
[2020-11-11 01:42] LABS: Urine Specific Gravity/Preg >1.030 (1.005-1.030)
[2020-11-11] MEDS ORDERED: PROMETHAZINE INJ 25 MG/ML AMP ONE (02:38)
--- NOTE | 2020-11-11 03:12 | EDPHYS ---
Physician Documentation [facility] Name: Yandy Dawkins Age: 24 yrs Sex: Female : 1995 Arrival Date: 11/10/2020 Time: 21:[address] Private MD: GUERITA Physician Ever Bolivar HPI: 11/11 00:12 This 24 yrs old Female presents to ER via EMS with complaints of vomiting and maximilian abdominal pain. 00:12 The patient presents with abdominal pain in the upper abdomen, abdominal distention in maximilian the upper abdomen, in the lower abdomen. Onset: The symptoms/episode began/occurred 3 day(s) ago. The patient presents to the emergency department with nausea, vomiting, abdominal pain, of the left upper quadrant. Onset: The symptoms/episode began/occurred 3 day(s) ago. Possible causes: unknown. The symptoms are aggravated by nothing. The symptoms do not radiate. The symptoms are described as achy, constant, crampy. Historical: - Allergies: 11/10 22:04 HYDROCODONE; ca1 - PMHx: 22:04 Anxiety; Bipolar disorder; Depression; ca1 - PSHx: 22:04 Cholecystectomy; ca1 - Immunization history:: Client reports having NOT received the Covid vaccine. Flu vaccine is not up to date. - Social history:: Smoking status: Patient reports the use of cigarette tobacco products, smokes one pack cigarettes per day. - Family history:: not pertinent. ROS: 11/11 00:12 Constitutional: Negative for fever, chills, and weight loss, Eyes: Negative for injury, maximilian pain, redness, and discharge, ENT: Negative for injury, pain, and discharge, Neck: Negative for injury, pain, and swelling, Cardiovascular: Negative for chest pain, palpitations, and edema, Respiratory: Negative for shortness of breath, cough, wheezing, and pleuritic chest pain, Back: Negative for injury and pain, : Negative for injury, bleeding, discharge, and swelling, MS/Extremity: Negative for injury and deformity, Skin: Negative for injury, rash, and discoloration, Neuro: Negative for headache, weakness, numbness, tingling, and seizure. Abdomen/GI: Positive for abdominal pain, nausea and vomiting, of the left upper quadrant. Exam: 00:12 Constitutional: This is a well developed, well nourished patient who is awake, alert, maximilian and in no acute distress. Head/Face: Normocephalic, atraumatic. Eyes: Pupils equal round and reactive to light, extra-ocular motions intact. Lids and lashes normal. Conjunctiva and sclera are non-icteric and not injected. Cornea within normal limits. Periorbital areas with no swelling, redness, or edema. ENT: Nares patent. No nasal discharge, no septal abnormalities noted. Tympanic membranes are normal and external auditory canals are clear. Oropharynx with no redness, swelling, or masses, exudates, or evidence of obstruction, uvula midline. Mucous membranes moist. Neck: Trachea midline, no thyromegaly or masses palpated, and no cervical lymphadenopathy. Supple, full range of motion without nuchal rigidity, or vertebral point tenderness. No Meningismus. Chest/axilla: Normal chest wall appearance and motion. Nontender with no deformity. No lesions are appreciated. Cardiovascular: Regular rate and rhythm with a normal S1 and S2. No gallops, murmurs, or rubs. Normal PMI, no JVD. No pulse deficits. Respiratory: Lungs have equal breath sounds bilaterally, clear to auscultation and percussion. No rales, rhonchi or wheezes noted. No increased work of breathing, no retractions or nasal flaring. Back: No spinal tenderness. No costovertebral tenderness. Full range of motion. Skin: Warm, dry with normal turgor. Normal color with no rashes, no lesions, and no evidence of cellulitis. MS/ Extremity: Pulses equal, no cyanosis. Neurovascular intact. Full, normal range of motion. Neuro: Awake and alert, GCS 15, oriented to person, place, time, and situation. Cranial nerves II-XII grossly intact. Motor strength 5/5 in all extremities. Sensory grossly intact. Cerebellar exam normal. Normal gait. Psych: Awake, alert, with orientation to person, place and time. Behavior, mood, and affect are within normal limits. 00:12 Abdomen/GI: Inspection: distension, Bowel sounds: normal, Palpation: mild abdominal tenderness, in the left upper quadrant. 00:12 Musculoskeletal/extremity: DVT Exam: No signs of deep vein thrombosis. no pain, no swelling, no tenderness, negative Homans' sign noted on exam, no appreciated bluish discoloration, no erythema, no increased warmth. Vital Signs: 11/10 22:00 BP 128 / 89; Pulse 55; Resp 18 S; Temp 98.5(TE); Pulse Ox 96% on R/A; Weight 131.54 kg ca1 (R); Height 5 ft. 5 in. (165.10 cm) (R); Pain 6/10; 23:00 BP 127 / 65; Pulse 61; Resp 17 S; Pulse Ox 100% on R/A; ca1 11/11 00:06 BP 122 / 68; Pulse 55; Resp 17 S; Pulse Ox 100% on R/A; ca1 03:05 BP 127 / 87; Pulse 67; Resp 20; Pulse Ox 100% on R/A; ak2 11/10 22:00 Body Mass Index 48.26 (131.54 kg, 165.10 cm) ca1 MDM: 11/10 22:07 Patient medically screened. [facility] 11/11 00:17 Differential diagnosis: Nonspecific abd pain, pancreatitis, appendicitis, maximilian diverticulitis, bowel obstruction, diverticulitis, non-specific abd pain, pancreatitis, Pyelonephritis, urinary tract infection. Data reviewed: vital signs, nurses notes, lab test result(s), radiologic studies, CT scan, plain films. Data interpreted: director clinical applications: rate is 55 beats/min, rhythm is regular, Pulse oximetry: on room air is 100 %. Test interpretation: by ED physician or midlevel provider: plain radiologic studies. Counseling: I had a detailed discussion with the patient and/or guardian regarding: the historical points, exam findings, and any diagnostic results supporting the discharge/admit diagnosis, lab results, radiology results. 11/10 22:04 Order name: Basic Metabolic Panel [facility] 11/10 22:04 Order name: CBC with Diff [facility] 11/10 22:04 Order name: Hepatic Function [facility] 11/10 22:04 Order name: Lipase [facility] 11/10 22:32 Order name: CBC with Automated Diff; Complete Time: 23:24 EDDC 11/10 22:58 Order name: Basic Metabolic Panel; Complete Time: 23:24 EDMS 11/10 22:06 Order name: Abdomen with Erect XRAY [facility] 11/10 22:58 Order name: Liver (Hepatic) Function; Complete Time: 23:24 EDMS 11/10 22:58 Order name: Lipase; Complete Time: 23:24 EDDC 11/10 23:46 Order name: CT Abd/Pelvis - IV Contrast Only [facility] 11/11 01:17 Order name: Urine Dipstick-Ancillary; Complete Time: 01:47 EDDC 11/11 01:19 Order name: Urine Culture tt3 11/11 01:22 Order name: Urine --Ancillary (enter results) [facility] 11/11 01:42 Order name: Urine --Ancillary; Complete Time: 01:47 EDDC 11/10 22:04 Order name: IV Saline Lock; Complete Time: 22:06 [facility] 11/10 22:04 Order name: Labs collected and sent; Complete Time: 22:19 [facility] Administered Medications: 11/10 22:10 Drug: NS 0.9% 1000 ml Route: IV; Rate: 1 bolus; Site: left hand; ca1 23:20 Follow up: Response: No adverse reaction; IV Status: Completed infusion; IV Intake: ca1 1000ml 22:12 Drug: Pepcid (famotidine) 20 mg Route: IVP; Site: left hand; ca1 23:00 Follow up: Response: No adverse reaction ca1 23:36 Drug: Potassium Chloride 20 mEq Route: IV; Rate: per protocol; Site: left hand; ca1 11/11 00:04 Drug: NS 0.9% with KCl 20 mEq/L 1000 ml Route: IV; Rate: 500 ml/hr; Site: left hand; ca1 00:11 Drug: Flagyl (metroNIDAZOLE) 500 mg Volume: 100 ml; Route: IVPB; Rate: 200 ml/hr; ca1 Infused Over: 30 mins; Site: left hand; 00:49 Follow up: Response: No adverse reaction; IV Status: Completed infusion; IV Intake: ca1 100ml 00:39 Drug: Zofran (Ondansetron) 4 mg Route: IVP; Site: left hand; ca1 01:00 Follow up: Response: No adverse reaction; Nausea is decreased ca1 00:42 Drug: morphine 2 mg {Note: rass 0.} Route: IVP; Site: left hand; ca1 01:00 Follow up: Response: No adverse reaction; Pain is decreased; RASS: Alert and Calm (0) ca1 00:50 Drug: Cipro (ciprofloxacin) 400 mg Volume: 200 ml; Route: IVPB; Infused Over: 60 mins; ca1 Site: left hand; 01:07 Drug: NS 0.9% 1000 ml Route: IV; Rate: 1 bolus; Site: left hand; ca1 01:32 Drug: Zofran (Ondansetron) 4 mg Route: IVP; Site: left hand; em 02:21 Drug: Phenergan (promethazine) 12.5 mg Route: IVP; Site: left hand; ak2 03:11 Drug: Rocephin (cefTRIAXone) 1 grams Route: IV; Rate: per protocol; Site: left hand; ak2 Disposition: 11/11/20 03:11 Discharged to Home. Impression: Abdominal tenderness, Vomiting, Hypokalemia, Urinary tract infection, site not specified. - Condition is Stable. - Discharge Instructions: Abdominal Pain, Adult, Potassium Content of Foods, Urinary Tract Infection, Adult, Urinary Tract Infection, Adult, [id number], Abdominal Pain, Adult, [id number], Hypokalemia. - Prescriptions for Bentyl 20 mg Oral Tablet - take 1 tablet by ORAL route every 6 hours As needed; 20 tablet. Pepcid 20 mg Oral Tablet - take 1 tablet by ORAL route every 12 hours for 10 days; 20 tablet. Phenergan 25 mg Rectal Suppository - insert 1 suppository by RECTAL route every 6 hours As needed; 12 suppository. promethazine 25 mg Oral Tablet - take 1 tablet by ORAL route every 6 hours As needed; 20 tablet. - Medication Reconciliation Form, Thank You Letter, Antibiotic Education, Prescription Opioid Use form. - Follow up: Private Physician; When: 2 - 3 days; Reason: Recheck today's complaints, Continuance of care, Re-evaluation by your physician. Follow up: Shanna Barroso MD; When: 2 - 3 days; Reason: Recheck today's complaints, Re-evaluation by your physician. - Problem is new. - Symptoms have improved. Signatures: Dispatcher [employer] Ever Paige MD MD cha Munoz, Edgar RN RN Arnie Yu, PEDRO-C HULL [id number] Jaqueline Peraza RN RN ca1 [place], Anthony ak2 Corrections: (The following items were deleted from the chart) 03:47 03:11 11/11/2020 03:11 Discharged to Home. Impression: Abdominal tenderness; Vomiting; ak2 Hypokalemia; Urinary tract infection, site not specified. Condition is Stable. Forms are Medication Reconciliation Form, Thank You Letter, Antibiotic Education, Prescription Opioid Use. Follow up: Private Physician; When: 2 - 3 days; Reason: Recheck today's complaints, Continuance of care, Re-evaluation by your physician. Follow up: Shanna Barroso; When: 2 - 3 days; Reason: Recheck today's complaints, Re-evaluation by your physician. Problem is new. Symptoms have improved. maximilian
--- NOTE | 2020-11-11 03:12 | ER ---
Nurse's Notes [facility] Name: Yandy Dawkins Age: 24 yrs Sex: Female : 1995 Arrival Date: 11/10/2020 Time: 21:[address] Private MD: Diagnosis: Abdominal tenderness;Vomiting;Hypokalemia;Urinary tract infection, site not specified Presentation: 11/10 22:00 Chief complaint: EMS states: LUQ pain x 1.5 days BLUNGER. Was here 4 - 5 days BLUNGER and was ca1 diagnosed with infection of the colon. Seen the GI doc and unable to recall diagnosis. Pt did not complete ABX, cause she reports she can't keep anything down. Reports N/V/constipation. Coronavirus screen: Client denies travel out of the [place] in the last 14 days. nausea, vomiting. Client presents with at least one sign or symptom that may indicate coronavirus-19. Standard/surgical mask placed on the client. Provider contacted for isolation considerations. Ebola Screen: Patient negative for fever greater than or equal to 101.5 degrees Fahrenheit, and additional compatible Ebola Virus Disease symptoms Patient denies exposure to infectious person. Patient denies travel to an Ebola-affected area in the 21 days before illness onset. No symptoms or risks identified at this time. Initial Sepsis Screen: Does the patient meet any 2 criteria? No. Patient's initial sepsis screen is negative. Does the patient have a suspected source of infection? No. Patient's initial sepsis screen is negative. Risk Assessment: Do you want to hurt yourself or someone else? Patient reports no desire to harm self or others. Onset of symptoms was November 10, 2020. 22:00 Acuity: SREEKANTH 3 ca1 22:00 Method Of Arrival: EMS: [facility] ca1 Historical: - Allergies: 22:04 HYDROCODONE; ca1 - PMHx: 22:04 Anxiety; Bipolar disorder; Depression; ca1 - PSHx: 22:04 Cholecystectomy; ca1 - Immunization history:: Client reports having NOT received the Covid vaccine. Flu vaccine is not up to date. - Social history:: Smoking status: Patient reports the use of cigarette tobacco products, smokes one pack cigarettes per day. - Family history:: not pertinent. Screenin:04 Abuse screen: Denies threats or abuse. Denies injuries from another. Nutritional ca1 screening: No deficits noted. Tuberculosis screening: No symptoms or risk factors identified. Fall Risk IV access (20 points). Assessment: 22:04 General: Appears in no apparent distress. uncomfortable, obese, Behavior is crying. ca1 Pain: Complains of pain in left upper quadrant Pain currently is 9 out of 10 on a pain scale. Pain began 1.5 wks BLUNGER Is intermittent. Neuro: Level of Consciousness is awake, alert, obeys commands, Oriented to person, place, time, situation. GI: Abdomen is round obese, Bowel sounds present X 4 quads. Abd is soft X 4 quads Abdomen is tender to palpation in left upper quadrant Reports constipation, nausea, vomiting. Derm: Skin is intact, is healthy with good turgor, Skin is pink, warm \T\ dry. Musculoskeletal: Circulation, motion, and sensation intact. Capillary refill < 3 seconds. 23:00 Reassessment: Patient appears in no apparent distress at this time. Patient and/or ca1 family updated on plan of care and expected duration. Pain level reassessed. Patient is alert, oriented x 3, equal unlabored respirations, skin warm/dry/pink. 11/11 00:05 Reassessment: Patient appears in no apparent distress at this time. Patient and/or ca1 family updated on plan of care and expected duration. Pain level reassessed. Patient is alert, oriented x 3, equal unlabored respirations, skin warm/dry/pink. 01:00 Reassessment: Patient appears in no apparent distress at this time. Patient is alert, ca1 oriented x 3, equal unlabored respirations, skin warm/dry/pink. Vital Signs: 11/10 22:00 BP 128 / 89; Pulse 55; Resp 18 S; Temp 98.5(TE); Pulse Ox 96% on R/A; Weight 131.54 kg ca1 (R); Height 5 ft. 5 in. (165.10 cm) (R); Pain 6/10; 23:00 BP 127 / 65; Pulse 61; Resp 17 S; Pulse Ox 100% on R/A; ca1 11/11 00:06 BP 122 / 68; Pulse 55; Resp 17 S; Pulse Ox 100% on R/A; ca1 03:05 BP 127 / 87; Pulse 67; Resp 20; Pulse Ox 100% on R/A; ak2 11/10 22:00 Body Mass Index 48.26 (131.54 kg, 165.10 cm) ca1 ED Course: 11/10 21:57 Patient arrived in ED. ca1 22:02 Ever Bolivar MD is Attending Physician. maximilian 22:03 Triage completed. ca1 22:04 Arm band placed on right wrist. ca1 22:04 Patient has correct armband on for positive identification. Placed in gown. Bed in low ca1 position. Call light in reach. Side rails up X2. Pulse ox on. NIBP on. Warm blanket given. 22:04 Maintain EMS IV. Dressing intact. Good blood return noted. Site clean \T\ dry. Gauge \T\ ca 1 site: 20G L hand. 22:06 Jaqueline Peraza RN is Primary Nurse. ca1 11/11 01:13 Report given to SHARON Menjivar. ca1 03:09 Shanna Barroso MD is Referral Physician. maximilian 03:46 No provider procedures requiring assistance completed. IV discontinued. ak2 10:00 CT Abd/Pelvis - IV Contrast Only In Process Unspecified. EDMS Administered Medications: 11/10 22:10 Drug: NS 0.9% 1000 ml Route: IV; Rate: 1 bolus; Site: left hand; ca1 23:20 Follow up: Response: No adverse reaction; IV Status: Completed infusion; IV Intake: ca1 1000ml 22:12 Drug: Pepcid (famotidine) 20 mg Route: IVP; Site: left hand; ca1 23:00 Follow up: Response: No adverse reaction ca1 23:36 Drug: Potassium Chloride 20 mEq Route: IV; Rate: per protocol; Site: left hand; ca1 11/11 00:04 Drug: NS 0.9% with KCl 20 mEq/L 1000 ml Route: IV; Rate: 500 ml/hr; Site: left hand; ca1 00:11 Drug: Flagyl (metroNIDAZOLE) 500 mg Volume: 100 ml; Route: IVPB; Rate: 200 ml/hr; ca1 Infused Over: 30 mins; Site: left hand; 00:49 Follow up: Response: No adverse reaction; IV Status: Completed infusion; IV Intake: ca1 100ml 00:39 Drug: Zofran (Ondansetron) 4 mg Route: IVP; Site: left hand; ca1 01:00 Follow up: Response: No adverse reaction; Nausea is decreased ca1 00:42 Drug: morphine 2 mg {Note: rass 0.} Route: IVP; Site: left hand; ca1 01:00 Follow up: Response: No adverse reaction; Pain is decreased; RASS: Alert and Calm (0) ca1 00:50 Drug: Cipro (ciprofloxacin) 400 mg Volume: 200 ml; Route: IVPB; Infused Over: 60 mins; ca1 Site: left hand; 01:07 Drug: NS 0.9% 1000 ml Route: IV; Rate: 1 bolus; Site: left hand; ca1 01:32 Drug: Zofran (Ondansetron) 4 mg Route: IVP; Site: left hand; em 02:21 Drug: Phenergan (promethazine) 12.5 mg Route: IVP; Site: left hand; ak2 03:11 Drug: Rocephin (cefTRIAXone) 1 grams Route: IV; Rate: per protocol; Site: left hand; ak2 Intake: 11/10 23:20 IV: 1000ml; Total: 1000ml. ca1 11/11 00:49 IV: 100ml; Total: 1100ml. ca1 Outcome: 03:11 Discharge ordered by MD. yao 03:46 Condition: good ak2 03:46 Discharge instructions given to patient, family, Prescriptions given X 03:47 Patient left the ED. ak2 Signatures: Dispatcher [employer] Ever Paige MD MD cha Munoz, Edgar, RN RN em Jaqueline Peraza RN RN [facility] Enzo [place]wood ak2
[2020-11-11] MEDS ORDERED: CEFTRIAXONE/SWI 1gm 1 GM/10 ML SYR ONE (03:29)
[2020-11-11] MEDS ORDERED: NA CHLORIDE 0.9% 50 ML ONE (03:29)
[2020-11-11 03:55] VITALS: TEMP 98.5
[2020-11-11 03:57] VITALS: O2SAT 100
[2020-11-11 04:00] VITALS: BP 127/87
--- NOTE | 2020-11-11 08:43 | RAD REPORT ---
EXAM DESCRIPTION: RAD - Abdomen W Erect - 11/10/2020 10:58 pm CLINICAL HISTORY: ABD PAIN Pain COMPARISON: No comparisons FINDINGS: Exam is very limited body habitus. No bowel obstruction is seen. Visualized lung loya appear clear. No subdiaphragmatic free air. IMPRESSION: Negative examination.
--- NOTE | 2020-11-11 11:03 | RAD REPORT ---
EXAM DESCRIPTION: Abdomen Pelvis W Contrast 11/11/2020 1:38 AM CDT CLINICAL HISTORY: 24 years, Female, ABD PAIN COMPARISON: 10/30/2020 TECHNIQUE: Contrast-enhanced images of the abdomen and pelvis were performed utilizing 2 mm slice th ickness at 2 mm interval reconstruction from the lung bases to the ischial tuberosities after the adm inistration of IV contrast. Also delayed imaging through the kidneys and bladder were generated. In addition multiplanar reformats in the coronal and sagittal plane were obtained and reviewed. This exam was performed according to our departmental dose-optimization protocol, which includes auto mated exposure control, adjustment of the mA and/or kV according to patient size and/or use of iterat yoel reconstruction technique. FINDINGS: The lung bases demonstrate to be clear. The liver, pancreas, spleen and adrenal glands demonstrate to be unremarkable, no focal lesions are n oted. Surgical clips within the gallbladder fossa corresponding to previous cholecystectomy. There is no biliary duct dilatation. The kidneys demonstrate normal uptake of contrast media with no evidence for hydronephrosis. Grossly the unopacified stomach, small bowel and large bowel demonstrate to be within normal limits. Previous described questionable mucosal thickening of the large bowel is no longer visualized and/o r improved aeration fecal residue within the large bowel. The appendix is normal. The urinary bladder demonstrate to be unremarkable. The uterus demonstrate to be within normal limi ts. Again there is stable 2.3 cm right ovarian cyst similar to prior study. The aorta demonstrate a therosclerotic disease. There is no retroperitoneal lymphadenopathy. There is no evidence for ascit es and/or significant abnormal fluid collections. The rest of the soft tissue and bony structures are within normal limits. IMPRESSION: Previous described questionable mucosal thickening of the large bowel is no longer visua lized and/or improved in comparison with prior study. 2.3 cm benign appearing ovarian cyst. No follow-up imaging is recommended. Reference: J Am Cyndy Rad iol 2013;10:675-681 Status post cholecystectomy. Electronically signed by: Mello Leigh MD 11/11/2020 1:43 AM CDT Due to temporary technical issues with the PACS/Fluency reporting system, reports are being signed by the in house radiologist without review as a courtesy to ensure prompt reporting. The interpreting r adiologist is fully responsible for the content of the report.
== END 2020-11-11 03:47 | disposition home or self-care (01) ==
LOC: ER 21:54
DX: N39.0 Urinary tract infection, site not specified (principal); E87.6 Hypokalemia; R11.10 Vomiting, unspecified; F17.210 Nicotine dependence, cigarettes, uncomplicated; Z88.5 Allergy status to narcotic agent
CPT/HCPCS: 87088; 85025; 87086; 80048; 36415; 81025; 80076; 81003; 83690; 74177; 74019; J2550; J3480; J2270; J0696; J7030 ×2; J2405 ×2; J0744

== ENCOUNTER 2022-04-12 18:39 | Emergency (ER) | payer OTHER ==
--- OUTSIDE RECORDS SUMMARY | 2022-04-12 18:44 | XMS REPORT | Continuity of Care Document ---
:[address] [facility] t Address [address] [place] [address] Care Team Providers Name Role Phone KHAI PILLAI Primary Care Physician Unavailable Arley Tolentino Attending Clinician Unavailable Naveen CUEVAS Attending Clinician Unavailable Naveen Gardiner Attending Clinician Doctor Unassigned, [place] Attending Clinician Unavailable Physician, No Primary or Family Admitting Clinician Unavaila ble Payers Payer Name Policy Type Policy Number Effective Date Expiration Date [facility] [employer] [id number] 2019 PLUS 00:00:00 Problems Condition Condition Condition Status Onset Resolution Last Treating Co mments Source Name Details Category Date Date Treatment Clinician Date Encounter Encounter Disease Active Uni vers for for 7-14 ity of [place] Medical contracept contracept Br anch ion ion Tachycardi Tachycardi Disease Active U nivers a a 7-14 ity of 00:00: [address] Branch Elevated Elevated Disease Active Unive rs BP BP 7-14 ity of 00:00: [address] Branch Allergies, Adverse Reactions, Alerts Allergy Allergy Status Severity Reaction(s) Onset Inactive Treating Comm ents Source Name Type Date Date Clinician OXCARBAZ DRUG Active Other-Cmnt 2017-05 Univ ers EPINE INGREDI ity of 00:00: [place] 00 [facility] Oxcarbaz Propensi Active Other - See 2017-05 Agitatio n Univers epine ty to comments ity of adverse 00:00: [place] reaction [address] [place] [address] Social History Social Habit Start Date Stop Date Quantity Comments Source History of tobacco Cigarette Smoker University of use [facility] Exposure to 2022-03-01 2022-03-11 Not sure University SARS-CoV-2 (event) 00:00:00 15:15:00 [facility] Alcohol intake 2018-08-09 2018-08-09 0 /d University of 00:00:00 00:00:00 [facility] Cigarettes smoked 2018-03-13 2018-03-13 Univers ity of current (pack per 00:00:00 00:00:00 [facility] ) - Reported [place] Cigarette 2018-03-13 2018-03-13 University of pack-years 00:00:00 00:00:00 [facility] Tobacco use and 2018-03-13 2018-03-13 Smokeless Universit y of exposure 00:00:00 00:00:00 tobacco non-user [facility] Sex Assigned [birth year] Universit y of 00:00:00 00:00:00 [facility] Smoking Status Start Date Stop Date Source Smokes tobacco daily 2018-03-13 00:00:00 Univers ity of [facility] Medications Ordered Filled Start Stop Current Ordering Indication Dosage Frequency Signature Comments Components Source Medication Medication Date Date Medication? Clinician (SIG) Name Name methocarbam 2021-05 No 500mg 500 mg, U nivers oL 03-11 Oral, ity of (ROBAXIN) 22:00: 21:13 ONCE, [place] tablet 500 [place] :00 dose, On Medic al mg [facility] 03/11/22 at 1700, Routine ibuprofen 2021-05 No 600mg 600 mg, Uni vers (IBU) 03-11 Oral, ity of tablet 600 21:00: 21:13 ONCE, 1 [place] as mg 00 :00 dose, On Medical [facility] 03/11/22 at 1600, ARIEL methocarbam 2021-05 Yes [id number] 500mg Take 1 Univers oL 500 mg 0-22 tablet by ity o f tablet 00:00: mouth 4 [place] 00 (four) Medical times Branch daily. ibuprofen 2021-05 Yes [id number] 600mg Take 1 Univers 600 mg 0-22 tablet by ity of tablet 00:00: mouth [place] 00 every 6 Medical (six) Branch hours as needed for Pain (scale 4-6). omeprazole Yes [id number] 40mg Take 1 Univers 40 mg 5-10 capsule by ity of capsule 00:00: mouth [place] 00 daily. Medical Branch omeprazole Yes [id number] 40mg Take 1 Univers 40 mg 5-10 capsule by ity of capsule 00:00: mouth [place] 00 daily. Medical Branch Vital Signs Vital Name Observation Time Observation Value Comments Source Systolic blood 2022-03-11 20:15:00 152 mm[Hg] Univer sity of [facility] Diastolic blood 2022-03-11 20:15:00 99 mm[facility]Hg] [facility] 2022-03-11 20:15:00 99 /min [facility] Body temperature 2022-03-11 20:15:00 36.72 Liana [facility] Respiratory rate 2022-03-11 20:15:00 18 /min [facility] Body height 2022-03-11 20:15:00 165.1 cm [facility] Body weight 2022-03-11 20:15:00 149.687 kg [facility] BMI 2022-03-11 20:15:00 54.91 kg/m2 [facility] Oxygen saturation in 2022-03-11 20:15:00 97 /min [facility] Arterial blood by [facility] Pulse oximetry Branch Procedures Procedure Date / Time Performed Performing Clinician Sour e NOTICE OF PRIVACY 2022-03-11 20:14:04 Doctor Unassigned, No Univ [facility] PRACTICES Name [facility] CONSENT/REFUSAL FOR 2022-03-11 20:10:23 [facility], [facility] Name [facility] Branch TREATMENT Encounters Start End Encounter Admission Attending Care Care Encounter Source Date/Time Date/Time Type Type Clinicians Facility Department ID 2020-12-06 Inpatient LINDA Puentes ENDO [id number] [facility] 13:30:00 Arley Del Toro [facility] 2022-03-20 2022-03-20 Outpatient [facility] [id number] Hal 14:11:34 14:11:34 1031 F Shreyas 2022-03-15 2022-03-15 Outpatient [facility] [id number] Hal 15:00:04 15:00:04 1026 F Shreyas 2022-03-11 2022-03-11 Emergency X Naveen CUEVAS [facility] ERT [id number] Univers 15:17:00 16:45:00 ity of [facility] 2022-03-11 2022-03-11 Emergency Naveen Cuevas [facility] [id number] Univers 15:17:00 16:45:00 Kenna LOCO [id number] i ty of [place]IM[place] [id number] [facility] [id number] [facility] patricia 084 Branch 2022-03-11 2022-03-11 Orders Doctor KOLE [id number] Univers 00:00:00 00:00:00 Only Unassigned, MOSES [id number] ity of [place] [facility] [id number] Juan [id number] [facility] patricia 009 Branch 2022-02-16 2022-02-16 Outpatient [facility] [id number] Hal 12:16:29 12:16:29 0929 F Shreyas Results This patient has no known results.
[2022-04-12] MEDS ORDERED: NA CHLORIDE 0.9% 1,000 ML ONE (19:21)
[2022-04-12] MEDS ORDERED: KETOROLAC 30 MG/ML INJ ONE (19:21)
[2022-04-12 19:36] LABS: Urine Blood Negative (Negative); Urine Glucose Negative (Negative); Urine Protein Negative (Negative); Urine Specific Gravity 1.025 (1.005-1.030); Urine pH 5.5 (5.0-7.0)
[2022-04-12 20:16] LABS: Urine Bacteria <20 /HPF (<20); Urine Crystals Unidentified Few /HPF (None Seen); Urine Mucus Slight /HPF (None Seen); Urine RBC <5 /HPF (None Seen)
[2022-04-12 20:18] LABS: Absolute Lymphocytes (CBC) 0.6 K/uL (0.7-4.9); Hematocrit 40.2 % (36.0-45.0); Lymphocytes % 8.9 % (15.3-44.8); MCV 81.4 fL (80-100); MPV 6.5 fL (7.6-11.3); RBC Red Blood Cell Count 4.94 M/uL (3.86-4.86)
[2022-04-12 20:26] LABS: Albumin 3.7 g/dL (3.4-5.0); Bilirubin Total 0.3 mg/dL (0.2-1.0); Potassium 3.2 mmol/L (3.5-5.1); Protein, Total 8.1 g/dL (6.4-8.2)
[2022-04-12] MEDS ORDERED: MORPHINE 2 MG/ML SYR ONE (20:45)
[2022-04-12] MEDS ORDERED: ONDANSETRON 4 MG/2 ML VIAL ONE (20:45)
--- NOTE | 2022-04-12 21:32 | RAD REPORT ---
EXAM DESCRIPTION: CTAbdomen Pelvis W Contrast - 04/12/2022 9:13 pm CLINICAL HISTORY: R flank pain COMPARISON: 11/11/2020 TECHNIQUE: CT of the abdomen and pelvis was performed with IV contrast. All CT scans are performed using dose optimization technique as appropriate and may include automated exposure control or mA/KV adjustment according to patient size. FINDINGS: Lower chest: No acute abnormality. Liver: Hepatic steatosis Biliary: Cholecystectomy Stomach: No significant focal abnormality. Duodenum: No significant focal abnormality. Pancreas: No significant abnormality. Spleen: No significant abnormality. Adrenal: No suspicious lesions. Kidney/ureter: No hydronephrosis. No renal calculi. Retroperitoneum: No retroperitoneal adenopathy. Vascular: No aneurysm. Bowel: No significant focal abnormality. Peritoneum: No ascites or free air. Bladder: Grossly unremarkable. Reproductive: No adnexal masses. Bones: No acute fracture. Other: n/a IMPRESSION: No acute intra-abdominal or pelvic finding. Normal appendix. No urinary tract calculi.
--- NOTE | 2022-04-12 22:05 | EDPHYS ---
Physician Documentation [facility] Name: Yandy Dawkins Age: 26 yrs Sex: Female : 1995 Arrival Date: 04/12/2022 Time: 18:42 Bed 18 Private MD: ED Physician Danie Lock HPI: 04/12 19:00 This 26 yrs old Female presents to ER via Ambulatory with complaints of Low Back Pain, jh7 Flank Pain. 19:00 The patient presents with pain that is acute, with no known mechanism of injury. The jh7 symptoms are located in the low back. The pain does not radiate. The problem was sustained from unknown cause. Onset: The symptoms/episode began/occurred today. Associated signs and symptoms: Pertinent positives: Mild urinary urgency. Historical: - Allergies: 18:56 HYDROCODONE; ll1 - PMHx: 18:56 Anxiety; Bipolar disorder; Depression; ll1 - PSHx: 18:56 Cholecystectomy; ll1 - Immunization history:: Client reports having NOT received the Covid vaccine. - Social history:: Smoking status: Patient reports the use of cigarette tobacco products, smokes one pack cigarettes per day. ROS: 19:00 Constitutional: Negative for fever, chills, and weight loss, Eyes: Negative for injury, jh7 pain, redness, and discharge, Neck: Negative for injury, pain, and swelling, Cardiovascular: Negative for chest pain, palpitations, and edema, Respiratory: Negative for shortness of breath, cough, wheezing, and pleuritic chest pain, Abdomen/GI: Negative for abdominal pain, nausea, vomiting, diarrhea, and constipation, MS/Extremity: Negative for injury and deformity, Skin: Negative for injury, rash, and discoloration, Neuro: Negative for headache, weakness, numbness, tingling, and seizure. 19:00 Back: Positive for pain at rest, pain with movement. 19:00 : Positive for Urgency. 19:00 All other systems are negative. Exam: 19:00 Constitutional: This is a well developed, well nourished patient who is awake, alert, jh7 and in no acute distress. Head/Face: Normocephalic, atraumatic. Eyes: Pupils equal round and reactive to light, extra-ocular motions intact. Lids and lashes normal. Conjunctiva and sclera are non-icteric and not injected. Cornea within normal limits. Periorbital areas with no swelling, redness, or edema. ENT: Nares patent. No nasal discharge, no septal abnormalities noted. Tympanic membranes are normal and external auditory canals are clear. Oropharynx with no redness, swelling, or masses, exudates, or evidence of obstruction, uvula midline. Mucous membranes moist. Cardiovascular: Regular rate and rhythm with a normal S1 and S2. No gallops, murmurs, or rubs. Normal PMI, no JVD. No pulse deficits. Respiratory: Lungs have equal breath sounds bilaterally, clear to auscultation and percussion. No rales, rhonchi or wheezes noted. No increased work of breathing, no retractions or nasal flaring. Abdomen/GI: Soft, non-tender, with normal bowel sounds. No distension or tympany. No guarding or rebound. No evidence of tenderness throughout. Skin: Warm, dry with normal turgor. Normal color with no rashes, no lesions, and no evidence of cellulitis. MS/ Extremity: Pulses equal, no cyanosis. Neurovascular intact. Full, normal range of motion. Neuro: Awake and alert, GCS 15, oriented to person, place, time, and situation. Motor strength 5/5 in all extremities. Sensory grossly intact. Normal gait. 19:00 Back: pain, that is mild, of the lumbar area, left low back and right low back, ROM is normal, normal spinal alignment noted, CVA tenderness, is absent. Vital Signs: 18:55 BP 151 / 91; Pulse 117; Resp 18; Temp 97.3; Pulse Ox 99% ; Weight 149.69 kg; Height 5 ll1 ft. 5 in. (165.10 cm); Pain 7/10; 20:51 BP 123 / 78; Pulse 96; Resp 18; Pulse Ox 98% on R/A; ll3 22:03 BP 123 / 74; Pulse 83; Resp 17; Pulse Ox 98% on R/A; Pain 3/10; ll3 18:55 Body Mass Index 54.92 (149.69 kg, 165.10 cm) 1 MDM: 19:04 Patient medically screened. [facility] 22:05 Differential diagnosis: strain, contusion, UTI. Data reviewed: vital signs, nurses [facility] notes, lab test result(s), radiologic studies, CT scan. Data interpreted: Pulse oximetry: is 98 %. Interpretation: normal. Counseling: I had a detailed discussion with the patient and/or guardian regarding: the historical points, exam findings, and any diagnostic results supporting the discharge/admit diagnosis, to return to the emergency department if symptoms worsen or persist or if there are any questions or concerns that arise at home. 04/12 19:08 Order name: CBC with Diff; Complete Time: 20:28 [facility] 04/12 19:08 Order name: CMP; Complete Time: 20:28 [facility] 04/12 19:08 Order name: Lipase; Complete Time: 20:28 [facility] 04/12 19:08 Order name: Urine Microscopic Only; Complete Time: 20:28 [facility] 04/12 19:37 Order name: Urine Dipstick-Ancillary; Complete Time: 20:28 [facility] 04/12 20:34 Order name: CT Abd/Pelvis - IV Contrast Only; Complete Time: 22:01 [facility] 04/12 19:08 Order name: IV Saline Lock; Complete Time: 19:29 [facility] 04/12 19:08 Order name: Labs collected and sent; Complete Time: 19:38 [facility] 04/12 19:08 Order name: Urine Dipstick-Ancillary (obtain specimen); Complete Time: 19:38 [facility] 04/12 19:08 Order name: Urine Test (obtain specimen); Complete Time: 19:38 [facility] Administered Medications: 19:29 Drug: NS 0.9% 1000 ml Route: IV; Rate: 1 bolus; Site: right antecubital; kd3 20:51 Follow up: Response: No adverse reaction; IV Status: Completed infusion; IV Intake: ll3 1000ml 19:30 Drug: Ketorolac 30 mg Route: IVP; Site: right antecubital; kd3 20:50 Drug: Zofran (Ondansetron) 4 mg Route: IVP; Site: right antecubital; ll3 22:03 Follow up: Response: No adverse reaction ll3 20:50 Drug: morphine 2 mg Route: IVP; Infused Over: 4 mins; Site: right antecubital; ll3 22:03 Follow up: Response: No adverse reaction; Pain is decreased ll3 Disposition: 04/13 02:42 Co-signature as Attending Physician, Danie Lcok MD. rn Disposition Summary: 04/12/22 22:04 Discharge Ordered Location: Home [facility] Problem: new [facility] Symptoms: have improved jh Condition: Stable [facility] Diagnosis - Low back pain [facility] Followup: [facility] - With: Private Physician - When: 2 - 3 days - Reason: Recheck today's complaints Discharge Instructions: - Discharge Summary Sheet jh7 - Acute Back Pain, Adult jh7 - Musculoskeletal Pain [facility] Forms: - Medication Reconciliation Form [facility] - Thank You Letter [facility] Prescriptions: - Naprosyn 500 mg Oral Tablet - take 1 tablet by ORAL route 2 times per day take with food; 30 tablet; Refills: jh7 0, Product Selection Permitted - Cyclobenzaprine 10 mg Oral Tablet - take 1 tablet by ORAL route every 8 hours As needed; 30 tablet; Refills: 0, jh7 Product Selection Permitted Signatures: Dispatcher [employer] Danie Mercado MD MD rn Lewis, Lynsay RN RN ll1 Myrtle Aragon RN RN ll3 Cayla Peres RN RN kd3 Jaci Saldana FNP [place] [id number]
--- NOTE | 2022-04-12 22:05 | ER ---
Nurse's Notes [facility] Name: Yandy Dawkins Age: 26 yrs Sex: Female : 1995 Arrival Date: 04/12/2022 Time: 18:42 Bed 18 Private MD: Diagnosis: Low back pain Presentation: 04/12 18:55 Chief complaint: Patient states: Bilateral lower back pain for 1 days. Int. R flank ll1 pain. No fever. Urinary urgency reported. Coronavirus screen: Vaccine status: Patient reports being unvaccinated. Client denies travel out of the [place] in the last 14 days. At this time, the client does not indicate any symptoms associated with coronavirus-19. Ebola Screen: Patient denies travel to an Ebola-affected area in the 21 days before illness onset. Initial Sepsis Screen: Does the patient meet any 2 criteria? HR > 90 bpm. No. Patient's initial sepsis screen is negative. Does the patient have a suspected source of infection? Yes: Bone or joint infection. Risk Assessment: Do you want to hurt yourself or someone else? Patient reports no desire to harm self or others. Onset of symptoms was April 12, 2022. 18:55 Method Of Arrival: Ambulatory ll1 18:55 Acuity: SREEKANTH 3 ll1 Triage Assessment: 18:57 General: Appears uncomfortable, Behavior is cooperative, appropriate for age. Pain: ll1 Complains of pain in low back. Neuro: No deficits noted. Cardiovascular: No deficits noted. : Reports pain in right flank(s). : Reports urinary frequency. Historical: - Allergies: 18:56 HYDROCODONE; ll1 - PMHx: 18:56 Anxiety; Bipolar disorder; Depression; ll1 - PSHx: 18:56 Cholecystectomy; ll1 - Immunization history:: Client reports having NOT received the Covid vaccine. - Social history:: Smoking status: Patient reports the use of cigarette tobacco products, smokes one pack cigarettes per day. Screenin:04 Abuse screen: Denies threats or abuse. Denies injuries from another. Nutritional ll3 screening: No deficits noted. Tuberculosis screening: No symptoms or risk factors identified. Fall Risk None identified. Assessment: 19:36 General: Appears uncomfortable, Behavior is calm, cooperative. Pain: Complains of pain kd3 in left low back and right low back. Neuro: Level of Consciousness is awake, alert, obeys commands, Oriented to person, place, time, situation. Cardiovascular: Patient's skin is warm and dry. Respiratory: Airway is patent Trachea midline Respiratory effort is even, unlabored, Respiratory pattern is regular, symmetrical. 20:51 Reassessment: Pt c/o low back pain 6/10, ERP notified, medicated as ordered, tolerated ll3 well. 22:03 Reassessment: States pain has improved to 3/10. ll3 Vital Signs: 18:55 BP 151 / 91; Pulse 117; Resp 18; Temp 97.3; Pulse Ox 99% ; Weight 149.69 kg; Height 5 ll1 ft. 5 in. (165.10 cm); Pain 7/10; 20:51 BP 123 / 78; Pulse 96; Resp 18; Pulse Ox 98% on R/A; ll3 22:03 BP 123 / 74; Pulse 83; Resp 17; Pulse Ox 98% on R/A; Pain 3/10; ll3 18:55 Body Mass Index 54.92 (149.69 kg, 165.10 cm) ll1 ED Course: 18:42 Patient arrived in ED. rg4 18:46 Cecy Paul FNP-C is PHCP. kb 18:46 Syed Luis MD is Attending Physician. kb 18:56 Triage completed. ll1 18:57 Arm band placed on. ll1 19:04 Jaci Saldana, DAMAGE ADJUSTER is PHCP. jh7 19:04 Syed Luis MD is Attending Physician. [facility] 19:33 Attending Physician role handed off by Syed Luis MD rn 19:33 Danie Lock MD is Attending Physician. rn 19:37 Inserted saline lock: 20 gauge in right antecubital area, using aseptic technique. kd3 Blood collected. 21:15 CT Abd/Pelvis - IV Contrast Only In Process Unspecified. EDMS 22:04 Patient has correct armband on for positive identification. Bed in low position. Call ll3 light in reach. Side rails up X 1. 22:04 No provider procedures requiring assistance completed. ll3 22:28 IV discontinued, intact, bleeding controlled, No redness/swelling at site. Pressure ll3 dressing applied. Administered Medications: 19:29 Drug: NS 0.9% 1000 ml Route: IV; Rate: 1 bolus; Site: right antecubital; kd3 20:51 Follow up: Response: No adverse reaction; IV Status: Completed infusion; IV Intake: ll3 1000ml 19:30 Drug: Ketorolac 30 mg Route: IVP; Site: right antecubital; kd3 20:50 Drug: Zofran (Ondansetron) 4 mg Route: IVP; Site: right antecubital; ll3 22:03 Follow up: Response: No adverse reaction ll3 20:50 Drug: morphine 2 mg Route: IVP; Infused Over: 4 mins; Site: right antecubital; ll3 22:03 Follow up: Response: No adverse reaction; Pain is decreased ll3 Medication: 22:28 VIS not applicable for this client. ll3 Intake: 20:51 IV: 1000ml; Total: 1000ml. 3 Outcome: 22:04 Discharge ordered by . 7 22:28 Discharged to home ambulatory, with family. ll3 22:28 Condition: stable 22:28 Discharge instructions given to patient, Instructed on discharge instructions, follow up and referral plans. medication usage, Demonstrated understanding of instructions, follow-up care, medications, Prescriptions given X 2. 22:29 Patient left the ED. ll3 Signatures: Dispatcher [employer] EDMS Cecy Paul, DAMAGE ADJUSTER-C DAMAGE ADJUSTER-Daveb Danie Lock MD MD rn Garcia, Rubi rg4 Papa Mejia RN RN ll1 Myrtle Aragon RN RN ll3 Cayla Peres RN RN 3 Jaci Saldana FNP [place] [id number] Corrections: (The following items were deleted from the chart) 18:58 18:55 BP 151 / 91; Pulse 123bpm; Resp 18bpm; Pulse Ox 99%; Temp 97.3F; 149.69 kg; ll1 Height 5 ft. 5 in.; BMI: 54.9; Pain 7/10; ll1
[2022-04-12 22:53] VITALS: TEMP 97.3
[2022-04-12 22:54] VITALS: O2SAT 98
[2022-04-12 22:55] VITALS: BP 123/74
== END 2022-04-12 22:29 | disposition home or self-care (01) ==
LOC: ER 18:39
DX: M54.50 Low back pain, unspecified (principal); F17.210 Nicotine dependence, cigarettes, uncomplicated; Z88.5 Allergy status to narcotic agent
CPT/HCPCS: 96361; 85025; 36415; 83690; 80053; 74177; 96375; 96374; 99284; Q9967; J2270; J7030; J2405; 81003; 81015

== ENCOUNTER 2022-07-08 19:54 | Emergency (ER) | payer OTHER ==
--- OUTSIDE RECORDS SUMMARY | 2022-07-08 19:59 | XMS REPORT | Continuity of Care Document ---
:1995 Author Organization [facility] t Address [address] [place] [address] Care Team Providers Name Role Phone KHAI PILLAI Primary Care Physician Unavailable Arley Tolentino Attending Clinician Unavailable Naveen CUEVAS Attending Clinician Unavailable Naveen Gardiner Attending Clinician Doctor Unassigned, [place] Attending Clinician Unavailable Physician, No Primary or Family Admitting Clinician Unavaila ble Payers Payer Name Policy Type Policy Number Effective Date Expiration Date [place] [facility] [employer] [id number] 2019 PLUS 00:00:00 Problems Condition Condition Condition Status Onset Resolution Last Treating Co mments Source Name Details Category Date Date Treatment Clinician Date Tachycardi Tachycardi Disease Active U nivers a a 7-14 ity of 00:00: [address] Elevated Elevated Disease Active Unive rs BP BP 7-14 ity of 00:00: [address] Encounter Encounter Disease Active Uni vers for for 7-14 ity of Depo[place] Medical contracept contracept Br anch ion ion Allergies, Adverse Reactions, Alerts Allergy Allergy Status Severity Reaction(s) Onset Inactive Treating Comm ents Source Name Type Date Date Clinician OXCARBAZ DRUG Active Other-Cmnt 2017-05 Univ ers EPINE INGREDI - ity of 00:00: [place] 00 Medical Branch Oxcarbaz Propensi Active Other - See 2017-05 Agitaofeliao n Univers epine ty to comments ity of adverse 00:00: [place] reaction [address] [place] [address] Social History Social Habit Start Date Stop Date Quantity Comments Source History of tobacco Cigarette Smoker University of use [facility] Exposure to 2022-03-01 2022-03-11 Not sure [facility] SARS-CoV-2 (event) 00:00:00 15:15:00 [facility] Alcohol intake 2018-08-09 2018-08-09 0 /d University of 00:00:00 00:00:00 [facility] Cigarettes smoked 2018-03-13 2018-03-13 Univers ity of current (pack per 00:00:00 00:00:00 [facility] ) - Reported Branch Cigarette 2018-03-13 2018-03-13 University of pack-years 00:00:00 00:00:00 [facility] Tobacco use and 2018-03-13 2018-03-13 Smokeless Universit y of exposure 00:00:00 00:00:00 tobacco non-user [facility] Sex Assigned At [birth year] Universit y of 00:00:00 00:00:00 [facility] Smoking Status Start Date Stop Date Source Smokes tobacco daily 2018-03-13 00:00:00 Univers ity of [facility] Medications Ordered Filled Start Stop Current Ordering Indication Dosage Frequency Signature Comments Components Source Medication Medication Date Date Medication? Clinician (SIG) Name Name TAKE 2021-05 No TABLET 2-17 DAILY. 00:00: 00 SERTRALINE 2021-05 No 100MG TAB 2-17 00:00: 00 TAKE 2021-05 No TABLET BY 2-17 MOUTH EVERY 00:00: DAY 00 TRI-LO-ESTA 2021-05 No RYLLA 2-17 ESTARYLL 00:00: TAB 00 INVEGA 2021-05 No SUSTENNA 2-17 117/0.75 00:00: INJ 00 UNWRAP AND 2021-05 No INSERT 1 2-17 SUPPOSITORY 00:00: BY RECTUM 00 EVERY 6 HOURS NEEDED DICYCLOMINE 2021-05 No HYDROCHLORI 2-17 DE 20MG TAB 00:00: 00 Dose 2021-05 No Unknown 2-17 00:00: 00 PALIPERIDON 2021-05 No E ER ER 3MG 2-17 TAB 00:00: 00 ATORVASTATI 2021-05 No N 10MG TAB 2- 00:00: 00 Dose 2021-05 No Unknown 2-17 00:00: 00 Dose 2021-05 No Unknown 2-17 00:00: 00 Dose 2021-05 No Unknown 2- 00:00: 00 Dose 2021-05 No Unknown 2-17 00:00: 00 PROMETHAZIN 2021-05 No 25 E HCL 25MG 2-17 SUP 00:00: 00 TAKE 1 AND 2021-05 No 1/2 TABLETS 2-17 BY MOUTH 00:00: EVERY DAY 00 TAKE 1 2021-05 No 5 TABLET BY 2-17 MOUTH EVERY 00:00: DAY 00 TAKE 1 2021-05 No 10 TABLET BY 2-17 MOUTH EVERY 00:00: DAY AT 00 NIGHT TAKE 1 2021-05 No TABLET BY 2-17 MOUTH EVERY 00:00: DAY 00 INJECT 1 ML 2021-05 No 117 INTRAMUSCUL 2-17 AR DAILY 00:00: TAKE 00 MEDICATION ONE MONTH AFTER TAKING INVEGA SUSTENNA 156 MG Dose 2021-05 No 500 Unknown 07-07 00:00: 00 TAKE MOUTH 2021-05 No 3 DAILY 1 2-17 TABLET 00:00: DAILY FOR 00 ONE WEEK AND 2 TABLETS FOR THE NEXT WEEK. FAMOTIDINE 2021-05 No 20 20MG TAB 2-17 00:00: 00 TAKE 1 2021-05 No 25 TABLET BY 2-17 MOUTH EVERY 00:00: 6 HOURS 00 NEEDED FOR NAUSEA methocarbam 2021-05- No 500mg 500 mg, U nivers oL -03-11 Oral, ity of (ROBAXIN) 22:00: 21:13 ONCE, 1 [place] tablet 500 00 :00 dose, On Medic al mg Sat Branch 03/11/22 at 1700, Routine ibuprofen 2021-05- No 600mg 600 mg, Uni vers (IBU) 03-11 Oral, ity of tablet 600 21:00: 21:13 ONCE, 1 [place] as mg 00 :00 dose, On Medical Sat Branch 03/11/22 at 1600, ARIEL methocarbam 2021-05 Yes [id number] 500mg Take 1 Univers oL 500 mg 0-22 tablet by ity o f tablet 00:00: mouth 4 00 (four) Medical times Branch daily. ibuprofen 2021-05 Yes [id number] 600mg Take 1 Univers 600 mg 0-22 tablet by ity of tablet 00:00: mouth 00 every 6 Medical (six) Branch hours as needed for Pain (scale 4-6). BUSPIRONE 2021-0 No HYDROCHLORI 01-26 DE 5MG TAB 00:00: 00 NORGESTIMAT 2021-0 No E/ETHINYL 01-18 ESTR 00:00: TRIPHASC 00 TAB TAKE 1 2021-0 No 5 TABLET BY 8-11 MOUTH EVERY 00:00: DAY 00 OLANZAPINE 2021-0 No 10MG TAB 12-29 00:00: 00 Dose 2-0 No Unknown 12-29 00:00: 00 TAKE 1 AND 2021-0 No 1/2 TABLETS 8-10 DAILY. 00:00: 00 buspirone 5 2021-0 No 1mg mg tablet 8 00:00: 00 Dose 2022-0 No Unknown 8- 00:00: 00 Dose 2022-0 No Unknown 8- 00:00: 00 &lt 2022-0 No 25 8-10 00:00: 00 TAKE 1 2021-0 No 5 TABLET BY 8-10 MOUTH EVERY 00:00: DAY 00 &lt 2022-0 No 10 8- 00:00: 00 &lt 2022-0 No 500 8- 00:00: 00 &lt 2022-0 No 8-09 00:00: 00 &lt 2022-0 No 10 8- 00:00: 00 TAKE 1 2-0 No 20 TABLET BY 8- MOUTH EVERY 00:00: 12 HOURS 00 FOR 10 DAYS Dose 2022-0 No Unknown 8 00:00: 00 &lt 2022-0 No 500 8 00:00: 00 Zoloft 100 2021-0 No 15mg mg tablet 12-16 00:00: 00 benztropine 2-0 No 1mg 0.5 mg - tablet 00:00: 00 buspirone 5 2021-0 No 1mg mg tablet 12-16 00:00: 00 Invega 2-0 No 1mg/mL Sustenna 7-29 156 mg/mL 00:00: intramuscul 00 ar syringe &lt 2022-0 No 7-29 00:00: 00 &lt 2022-0 No 100 7- 00:00: 00 INJECT 1 ML 2-0 No 156 INTRAMUSCUL - AR ONCE A :00: 00 &lt 2022-0 No 5 7-29 00:00: 00 TAKE 1 2-0 No 5 TABLET BY 7-29 MOUTH EVERY 00:00: DAY 00 TAKE 1 2-0 No 500 TABLET BY 7- MOUTH EVERY 00:00: DAY 00 Dose 2022-0 No Unknown 7- 00:00: 00 &lt 2022-0 No 5 7- 00:00: 00 TAKE 1 2-0 No 20 TABLET BY 7-28 MOUTH EVERY 00:00: 12 HOURS 00 FOR 10 DAYS &lt 2022-0 No 20 7-28 00:00: 00 &lt 2022-0 No 25 7-28 00:00: 00 Dose 2022-0 No 5 Unknown 7- 00:00: 00 &lt 2022-0 No 25 7-28 00:00: 00 &lt 2022-0 No 7-25 00:00: 00 TAKE 1 2-0 No 5 TABLET BY 7-20 MOUTH EVERY 00:00: DAY 00 Zoloft 100 2-0 No 15mg mg tablet - 00:00: 00 benztropine 2-0 No 1mg 0.5 mg 6-28 tablet 00:00: 00 buspirone 5 2021-0 No 1mg mg tablet - 00:00: 00 Dose 2022-0 No Unknown 6-28 00:00: 00 &lt 2022-0 No 6-28 00:00: 00 &lt 2022-0 No 6-28 00:00: 00 INJECT 1 ML 2-0 No INTRAMUSCUL 6-28 AR ONCE A :: 00 &lt 2022-0 No 6-28 00:00: 00 &lt 2022-0 No 6-28 00:00: 00 &lt 2022-0 No 6-22 00:00: 00 benztropine 2-0 No 1mg 0.5 mg 5-25 tablet 00:00: 00 Zoloft 100 2-0 No 15mg mg tablet 5-25 00:00: 00 buspirone 5 2-0 No 1mg mg tablet 5-25 00:00: 00 Invega 2-0 No 1mg/mL Sustenna 5-25 156 mg/mL 00:00: intramuscul 00 ar syringe Zoloft 100 2-0 No 15mg mg tablet 4-15 00:00: 00 benztropine 2022-0 No 1mg 0.5 mg 4-15 tablet 00:00: 00 buspirone 5 2-0 No 1mg mg tablet 4-15 00:00: 00 Invega 2022-0 No 1mg/mL Sustenna 4-15 156 mg/mL 00:00: intramuscul 00 ar syringe Dose 2-0 No Unknown 3-17 00:00: 00 Dose 2022-0 No Unknown 3-17 00:00: 00 Dose 2022-0 No Unknown 3-17 00:00: 00 Dose 2022-0 No Unknown 3-17 00:00: 00 Dose 2022-0 No Unknown 2-17 00:00: 00 Dose 2022-0 No Unknown 2-17 00:00: 00 Dose 2022-0 No Unknown 2-17 00:00: 00 Dose 2022-0 No Unknown 2-17 00:00: 00 benztropine 2-0 No 1mg 0.5 mg 1-21 tablet 00:00: 00 Zoloft 100 2-0 No 15mg mg tablet 1-21 00:00: 00 buspirone 5 2-0 No 1mg mg tablet 1-21 00:00: 00 Invega 2-0 No 1mg/0.7 Sustenna 1-21 5 mL 117 mg/0.75 00:00: mL 00 intramuscul ar syringe Zoloft 100 2020-1 No 15mg mg tablet 2-17 00:00: 00 benztropine 1-1 No 1mg 0.5 mg 2-17 tablet 00:00: 00 Invega 1-1 No 1mg/0.7 Sustenna 2-17 5 mL 117 mg/0.75 00:00: mL 00 intramuscul ar syringe Invega 6 mg 2020-1 No 1mg tablet,exte 1-23 nded 00:00: release 00 Zoloft 100 2021-1 No 15mg mg tablet 1-20 00:00: 00 Invega 2020-1 No 1mg/1.5 Sustenna 1-20 mL 234 mg/1.5 00:00: mL 00 intramuscul ar syringe Invega 2020-1 No 1mg/0.7 Sustenna 1-20 5 mL 117 mg/0.75 00:00: mL 00 intramuscul ar syringe Invega 2020-1 No 1mg/mL Sustenna 1-20 156 mg/mL 00:00: intramuscul 00 ar syringe Invega 3 mg 2020-1 No 1mg tablet,exte 1-04 nded 00:00: release 00 olanzapine 1-1 No 1mg 5 mg tablet 0-20 00:00: 00 Zoloft 100 2020-1 No 15mg mg tablet 020 00:00: 00 olanzapine 1-0 No 1mg 5 mg tablet 9- 00:00: 00 Zoloft 100 1-0 No 15mg mg tablet 9- 00:00: 00 olanzapine 1-0 No 1mg 5 mg tablet 8 00:00: 00 Zoloft 100 1-0 No 15mg mg tablet 8 00:00: 00 Depakote ER 1-0 No 1mg 500 mg 7-07 tablet,exte 00:00: nded 00 release olanzapine 1-0 No 1mg 5 mg tablet 7 00:00: 00 Zoloft 100 1-0 No 15mg mg tablet 7- 00:00: 00 olanzapine 2021-0 No 1mg 10 mg 7-07 tablet 00:00: 00 ondansetron 2021-0 No 1mg HCl 4 mg 6-09 tablet 00:00: 00 omeprazole 2021-0 No 1mg 40 mg 6-09 capsule,del 00:00: ayed 00 release olanzapine 2021-0 No 1mg 5 mg tablet 6-08 00:00: 00 Zoloft 100 2021-0 No 15mg mg tablet 6-08 00:00: 00 Depakote ER 2021-0 No 1mg 500 mg 6-08 tablet,exte 00:00: nded 00 release olanzapine 2021-0 No 1mg 10 mg 6-08 tablet 00:00: 00 Depakote ER 2021-0 No 1mg 500 mg 5-13 tablet,exte 00:00: nded 00 release Zoloft 100 2021-0 No 15mg mg tablet 5-13 00:00: 00 olanzapine 2021-0 No 1mg 5 mg tablet 5-13 00:00: 00 olanzapine 2021-0 No 1mg 10 mg 5-13 tablet 00:00: 00 olanzapine 2021-0 No 1mg 5 mg tablet 4-19 00:00: 00 Depakote ER 2021-0 No 1mg 500 mg 4-19 tablet,exte 00:00: nded 00 release Zoloft 100 2021-0 No 15mg mg tablet 4-19 00:00: 00 olanzapine 2021-0 No 1mg 10 mg 4-19 tablet 00:00: 00 olanzapine 2021-0 No 1mg 5 mg tablet 3- 00:00: 00 Depakote ER 2021-0 No 1mg 500 mg 3-26 tablet,exte 00:00: nded 00 release Zoloft 100 2021-0 No 15mg mg tablet 3- 00:00: 00 olanzapine 2021-0 No 1mg 10 mg 3-26 tablet 00:00: 00 Zoloft 100 2021-0 No 15mg mg tablet 3-03 00:00: 00 Depakote ER 2021-0 No 1mg 500 mg 3-03 tablet,exte 00:00: nded 00 release olanzapine 2021-0 No 1mg 5 mg tablet 3-03 00:00: 00 olanzapine 2021-0 No 1mg 10 mg 3-03 tablet 00:00: 00 Depakote ER 2021-0 No 1mg 500 mg 2-11 tablet,exte 00:00: nded 00 release olanzapine 2021-0 No 1mg 5 mg tablet 2-11 00:00: 00 Zoloft 100 2021-0 No 1mg mg tablet 2-11 00:00: 00 olanzapine 2021-0 No 1mg 10 mg 2-11 tablet 00:00: 00 Zoloft 100 2021-0 No 1mg mg tablet 1-11 00:00: 00 Depakote ER 2021-0 No 1mg 500 mg 1-11 tablet,exte 00:00: nded 00 release olanzapine 2021-0 No 1mg 5 mg tablet 1-11 00:00: 00 olanzapine 2021-0 No 1mg 10 mg 1-11 tablet 00:00: 00 olanzapine 2019- No 1mg 5 mg tablet 2-15 00:00: 00 Zoloft 100 2019- No 1mg mg tablet 2-15 00:00: 00 olanzapine 2019- No 1mg 10 mg 2-15 tablet 00:00: 00 Dose 2019- No Unknown 2-15 00:00: 00 Depakote ER 2019- No 1mg 500 mg 2-01 tablet,exte 00:00: nded 00 release Zoloft 50 2019- No 1mg mg tablet 2- 00:00: 00 olanzapine 2019- No 1mg 5 mg tablet 2- 00:00: 00 olanzapine 2019- No 1mg 10 mg 2-01 tablet 00:00: 00 olanzapine 2019- No 1mg 5 mg tablet 1-18 00:00: 00 Depakote ER 2019-05 No 1mg 500 mg 1-18 tablet,exte 00:00: nded 00 release Zoloft 50 2019-05 No 1mg mg tablet 1-18 00:00: 00 olanzapine 2019-05 No 1mg 10 mg 1-18 tablet 00:00: 00 ProAir HFA 2019-05 No 2mcg/ac 90 1-06 tuation mcg/actuati 00:00: on aerosol 00 inhaler prednisone 2019- No mg 20 mg 1-06 tablet 00:00: 00 Bromfed DM 2019-05 No 10mg/5 2 mg-30 1-06 mL mg-10 mg/5 00:00: mL oral 00 syrup Bromfed DM 2018-05 No 10mg/5 2 mg-30 1-26 mL mg-10 mg/5 00:00: mL oral 00 syrup lithium 2018-05 No 1mg carbonate 1-11 ER 300 mg 00:00: tablet,exte 00 nded release lithium No 1mg carbonate 8-21 ER 300 mg 00:00: tablet,exte 00 nded release omeprazole 2018- Yes [id number] 40mg Take 1 Univers 40 mg 5-10 capsule by ity of capsule 00:00: mouth [place] 00 daily. Medical Branch omeprazole 2018- Yes [id number] 40mg Take 1 Univers 40 mg 5-10 capsule by ity of capsule 00:00: mouth [place] 00 daily. Medical Branch ProAir HFA 2019-0 No 2mcg/ac 90 4-16 tuation mcg/actuati 00:00: on aerosol 00 inhaler azithromyci 2019-0 No mg n 250 mg 4-16 tablet 00:00: 00 Tamiflu 75 2019-0 No 1mg mg capsule 2-28 00:00: 00 Trileptal 2018-1 No 1mg 150 mg 2-05 tablet 00:00: 00 Seroquel 2018-1 No 1mg 100 mg 1-06 tablet 00:00: 00 Seroquel 2018-1 No 1mg 100 mg 0-03 tablet 00:00: 00 Zithromax 2018-0 No 1mg Z-Piotr 250 9-28 mg tablet 00:00: 00 Depakote 2018-0 No 1mg 125 mg 3-28 tablet,lee ann 00:00: yed release 00 citalopram 2018-0 No 1mg 20 mg 3-28 tablet 00:00: 00 trazodone 2018-0 No 1mg 50 mg 3-28 tablet 00:00: 00 trazodone 2017-1 No 1mg 50 mg 1-14 tablet 00:00: 00 amoxicillin 2017-1 No 1mg 500 mg 1-01 tablet 00:00: 00 trazodone 2017-1 No 1mg 50 mg 0-11 tablet 00:00: 00 Trileptal 2017-0 No 1mg 150 mg 7-26 tablet 00:00: 00 Vital Signs Vital Name Observation Time Observation Value Comments Source Systolic blood 2022-03-11 20:15:00 152 mm[Hg] [facility] Diastolic blood 2022-03-11 20:15:00 99 mm[Hg] [facility] Heart rate 2022-03-11 20:15:00 99 /min [facility] Body temperature 2022-03-11 20:15:00 36.72 [facility] [place] [facility] 2022-03-11 20:15:00 18 /min [facility] Body height 2022-03-11 20:15:00 165.1 cm [facility] Body weight 2022-03-11 20:15:00 149.687 kg [facility] BMI 2022-03-11 20:15:00 54.91 kg/m2 [facility] Medical Branch Oxygen saturation in 2022-03-11 20:15:00 97 /min [facility] Arterial blood by [facility] Pulse oximetry Branch BP Systolic 2022-05-19 14:20:00 138 mm[Hg] BP Diastolic 2022-05-19 14:20:00 88 mm[Hg] Weight Measured 2022-05-19 14:20:00 337.60 pounds Height Measured 2022-05-19 14:20:00 66.00 inches Body Temperature 2022-05-19 14:20:00 98.20 degrees Heart Rate 2022-05-19 14:20:00 96.00 /min Respiratory Rate 2022-05-19 14:20:00 19.00 /min BP Systolic 2020-06-19 16:13:00 127 mm[Hg] BP Diastolic 2020-06-19 16:13:00 73 mm[Hg] Weight Measured 2020-06-19 16:13:00 307.40 pounds Height Measured 2020-06-19 16:13:00 66.00 inches Body Temperature 2020-06-19 16:13:00 99.20 degrees Heart Rate 2020-06-19 16:13:00 98.00 /min Respiratory Rate 2020-06-19 16:13:00 BP Systolic 2019-06-23 13:34:00 BP Diastolic 2019-06-23 13:34:00 Weight Measured 2019-06-23 13:34:00 Height Measured 2019-06-23 13:34:00 Body Temperature 2019-06-23 13:34:00 Heart Rate 2019-06-23 13:34:00 Respiratory Rate 2019-06-23 13:34:00 BP Systolic 2019-06-23 13:31:00 111 mm[Hg] BP Diastolic 2019-06-23 13:31:00 69 mm[Hg] Weight Measured 2019-06-23 13:31:00 278.20 pounds Height Measured 2019-06-23 13:31:00 66.00 inches Body Temperature 2019-06-23 13:31:00 98.60 degrees Heart Rate 2019-06-23 13:31:00 72.00 /min Respiratory Rate 2019-06-23 13:31:00 16.00 /min BP Systolic 2019-04-15 15:38:00 121 mm[Hg] BP Diastolic 2019-04-15 15:38:00 77 mm[Hg] Weight Measured 2019-04-15 15:38:00 281.60 pounds Height Measured 2019-04-15 15:38:00 66.00 inches Body Temperature 2019-04-15 15:38:00 98.70 degrees Heart Rate 2019-04-15 15:38:00 86.00 /min Respiratory Rate 2019-04-15 15:38:00 18.00 /min BP Systolic 2019-03-31 11:04:00 113 mm[Hg] BP Diastolic 2019-03-31 11:04:00 77 mm[Hg] Weight Measured 2019-03-31 11:04:00 283.80 pounds Height Measured 2019-03-31 11:04:00 66.00 inches Body Temperature 2019-03-31 11:04:00 98.70 degrees Heart Rate 2019-03-31 11:04:00 66.00 /min Respiratory Rate 2019-03-31 11:04:00 20.00 /min BP Systolic 2019-01-08 10:39:00 123 mm[Hg] BP Diastolic 2019-01-08 10:39:00 74 mm[Hg] Weight Measured 2019-01-08 10:39:00 279.00 pounds Height Measured 2019-01-08 10:39:00 66.00 inches Body Temperature 2019-01-08 10:39:00 98.40 degrees Heart Rate 2019-01-08 10:39:00 106.00 /min Respiratory Rate 2019-01-08 10:39:00 18.00 /min BP Systolic 2018-09-03 16:17:00 132 mm[Hg] BP Diastolic 2018-09-03 16:17:00 87 mm[Hg] Weight Measured 2018-09-03 16:17:00 261.40 pounds Height Measured 2018-09-03 16:17:00 66.00 inches Body Temperature 2018-09-03 16:17:00 98.70 degrees Heart Rate 2018-09-03 16:17:00 78.00 /min Respiratory Rate 2018-09-03 16:17:00 18.00 /min BP Systolic 2018-07-18 10:46:00 131 mm[Hg] BP Diastolic 2018-07-18 10:46:00 82 mm[Hg] Weight Measured 2018-07-18 10:46:00 249.00 pounds Height Measured 2018-07-18 10:46:00 66.00 inches Body Temperature 2018-07-18 10:46:00 98.80 degrees Heart Rate 2018-07-18 10:46:00 79.00 /min Respiratory Rate 2018-07-18 10:46:00 16.00 /min BP Systolic 2018-06-05 17:59:00 129 mm[Hg] BP Diastolic 2018-06-05 17:59:00 89 mm[Hg] Weight Measured 2018-06-05 17:59:00 232.61 pounds Height Measured 2018-06-05 17:59:00 66.00 inches Body Temperature 2018-06-05 17:59:00 98.40 degrees Heart Rate 2018-06-05 17:59:00 72.00 /min Respiratory Rate 2018-06-05 17:59:00 Procedures Procedure Date / Time Performed Performing Clinician [facility] NOTICE OF PRIVACY 2022-03-11 20:14:04 Doctor Unassigned, No Univ [facility] PRACTICES Name Medical Branch CONSENT/REFUSAL FOR 2022-03-11 20:10:23 Doctor Unassigned, No [facility] DIAGNOSIS AND Name Medical Branch TREATMENT Plan of Care Planned Activity Planned Date Details Comments Source Goal Plan of Care Note [code = 74828-3] Goal Plan of Care Note [code = 06248-0] Goal Plan of Care Note [code = 90087-9] Goal Plan of Care Note [code = 59897-4] Goal Plan of Care Note [code = 72102-3] Goal Plan of Care Note [code = 85851-5] Goal Plan of Care Note [code = 23457-0] Goal Plan of Care Note [code = 50447-9] Goal Plan of Care Note [code = 73046-2] Goal Plan of Care Note [code = 95448-1] Goal Plan of Care Note [code = 22555-8] Goal Plan of Care Note [code = 75864-2] Goal Plan of Care Note [code = 60465-7] Goal Plan of Care Note [code = 29773-1] Goal Plan of Care Note [code = 00150-6] Goal Plan of Care Note [code = 88125-3] Goal Plan of Care Note [code = 87703-6] Goal Plan of Care Note [code = 29945-5] Goal Plan of Care Note [code = 62997-0] Goal Plan of Care Note [code = 19391-8] Goal Plan of Care Note [code = 05651-9] Encounters Start End Encounter Admission Attending Care Care Encounter Source Date/Time Date/Time Type Type Clinicians Facility Department ID 2020-12-06 Inpatient LINDA Puentes ENDO [id number] [facility] 13:30:00 Arley [facility] 2022-06-14 2022-06-14 Outpatient SFA SFA [id number] Hal 15:22:07 15:22:07 [address] [place] 2022-05-19 2022-05-19 Outpatient SFA SFA [id number] Hal 14:15:28 14:15:28 [address] [place] 2022-05-19 2022-05-19 Outpatient [id number] 00:00:00 00:00:00 Visit [id number] 2022-05-16 2022-05-16 Outpatient SFA SFA [id number] Hal 14:41:50 14:41:50 [address] [place] 2022-04-17 2022-04-17 Outpatient SFA SFA [id number] Hla 15:15:42 15:15:42 1[address] [place] 2022-03-20 2022-03-20 Outpatient SFA SFA [id number] Hal 14:11:34 14:11:34 10[address] [place] 2022-03-15 2022-03-15 Outpatient SFA SFA [id number] Hal 15:00:04 15:00:04 10[address] [place] 2022-03-11 2022-03-11 Emergency X Naveen CUEVAS [facility] ERT [id number] Univers 15:17:00 16:45:00 ity [facility] 2022-03-11 2022-03-11 Emergency Naveen Cuevas [facility] [id number] Univers 15:17:00 16:45:00 Kenna LOCO [id number] i ty reynaldo MARTÍNEZ [id number] [place] [id number] [facility] 084 Branch 2022-03-11 2022-03-11 Orders Doctor KOLE [id number] Univers 00:00:00 00:00:00 Only Unassigned, MOSES 350.1.13.10 ity of [place] [facility] [id number] Juan [id number] [facility] 009 Branch 2022-02-16 2022-02-16 Outpatient [facility] [id number] Hal 12:16:29 12:16: 0929 F Shreyas Results Test Description Test Time Test Comments Results Result Comments Source CBC W/AUTO DIFF 2022-03-16 00:00:00 Test Item Value Reference Range Interpretation Comme nts WBC (test code = 1001) 10.8 K/UL RBC (test code = 1002) 5.22 M/UL HEMOGLOBIN (test code = 1003) 14.4 G/DL HEMATOCRIT (test code = 1004) 43.8 % MCV (test code = 1005) 83.9 fL MCH (test code = 1006) 27.6 PG MCHC (test code = 1007) 32.9 G/DL RDW (test code = 1038) 13.7 % NEUTROPHILS (test code = 1008) 67.8 % LYMPHOCYTES (test code = 1010) 22.0 % MONOCYTES (test code = 1011) 6.8 % EOSINOPHILS (test code = 1012) 2.6 % BASOPHILS (test code = 1013) 0.5 % IMMATURE GRANULOCYTES (test code = 1036) 0.3 % NUCLEATED RBCS (test code = 1065) 0.0 /100WBC'S PLATELET COUNT (test code = 1015) 401 K/UL ABSOLUTE NEUTROPHILS (test code = 1066) 7.35 K/UL ABSOLUTE LYMPHOCYTES (test code = 1067) 2.38 K/UL ABSOLUTE MONOCYTES (test code = 1068) 0.74 K/UL ABSOLUTE EOSINOPHILS (test code = 1040) 0.28 K/UL ABSOLUTE BASOPHILS (test code = 1069) 0.05 K/UL ABS IMMATURE GRANULOCYTES (test code = 1020) 0.03 K/UL ABS NUCLEATED RBCS (test code = 02997) 0.00 K/UL CBC W/AUTO [id number] 00:00:00 Test Item Value Reference Range Interpretation Comments WBC (test code = 1001) 10.8 K/UL RBC (test code = 1002) 5.22 M/UL HEMOGLOBIN (test code = 1003) 14.4 G/DL HEMATOCRIT (test code = 1004) 43.8 % MCV (test code = 1005) 83.9 fL MCH (test code = 1006) 27.6 PG MCHC (test code = 1007) 32.9 G/DL RDW (test code = 1038) 13.7 % NEUTROPHILS (test code = 1008) 67.8 % LYMPHOCYTES (test code = 1010) 22.0 % MONOCYTES (test code = 1011) 6.8 % EOSINOPHILS (test code = 1012) 2.6 % BASOPHILS (test code = 1013) 0.5 % IMMATURE GRANULOCYTES (test 0.3 % code = 1036) NUCLEATED RBCS (test code = 0.0 /100WBC'S 1065) PLATELET COUNT (test code = 401 K/UL 1015) ABSOLUTE NEUTROPHILS (test code 7.35 K/UL = 1066) ABSOLUTE LYMPHOCYTES (test code 2.38 K/UL = 1067) ABSOLUTE MONOCYTES (test code = 0.74 K/UL 1068) ABSOLUTE EOSINOPHILS (test code 0.28 K/UL = 1040) ABSOLUTE BASOPHILS (test code = 0.05 K/UL 1069) ABS IMMATURE GRANULOCYTES (test 0.03 K/UL code = 1020) ABS NUCLEATED RBCS (test code = 0.00 K/UL 93337) CBC W/AUTO [id number] 00:00:00 Test Item Value Reference Range Interpretation Comments WBC (test code = 1001) 10.8 K/UL RBC (test code = 1002) 5.22 M/UL HEMOGLOBIN (test code = 1003) 14.4 G/DL HEMATOCRIT (test code = 1004) 43.8 % MCV (test code = 1005) 83.9 fL MCH (test code = 1006) 27.6 PG MCHC (test code = 1007) 32.9 G/DL RDW (test code = 1038) 13.7 % NEUTROPHILS (test code = 1008) 67.8 % LYMPHOCYTES (test code = 1010) 22.0 % MONOCYTES (test code = 1011) 6.8 % EOSINOPHILS (test code = 1012) 2.6 % BASOPHILS (test code = 1013) 0.5 % IMMATURE GRANULOCYTES (test 0.3 % code = 1036) NUCLEATED RBCS (test code = 0.0 /100WBC'S 1065) PLATELET COUNT (test code = 401 K/UL 1015) ABSOLUTE NEUTROPHILS (test code 7.35 K/UL = 1066) ABSOLUTE LYMPHOCYTES (test code 2.38 K/UL = 1067) ABSOLUTE MONOCYTES (test code = 0.74 K/UL 1068) ABSOLUTE EOSINOPHILS (test code 0.28 K/UL = 1040) ABSOLUTE BASOPHILS (test code = 0.05 K/UL 1069) ABS IMMATURE GRANULOCYTES (test 0.03 K/UL code = 1020) ABS NUCLEATED RBCS (test code = 0.00 K/UL 83379) COMPREHENSIVE METABOLIC [id number] 00:00:00 Test Item Value Reference Range Interpretation Comments GLUCOSE (test code = 2217) 86 MG/DL BUN (test code = 2208) 10 MG/DL CREATININE (test code = 2214) 0.84 MG/DL eGFR (2020 CKD-EPI) (test code 99 ML/MIN/1.73 = 47723) CALC BUN/CREAT (test code = 12 RATIO 2235) SODIUM (test code = 2231) 139 MEQ/L POTASSIUM (test code = 2228) 4.0 MEQ/L CHLORIDE (test code = 2215) 100 MEQ/L CARBON DIOXIDE (test code = 24 MEQ/L 2206) CALCIUM (test code = 2209) 10.2 MG/DL PROTEIN, TOTAL (test code = 7.3 G/DL 2229) ALBUMIN (test code = 2201) 4.5 G/DL CALC GLOBULIN (test code = 2.8 G/DL 2240) CALC A/G RATIO (test code = 1.6 RATIO 2234) BILIRUBIN, TOTAL (test code = 0.4 MG/DL 220) ALKALINE PHOSPHATASE (test 84 U/L code = 2204) AST (test code = 2218) 41 U/L ALT (test code = 2219) 52 U/L COMPREHENSIVE METABOLIC [id number] 00:00:00 Test Item Value Reference Range Interpretation Comments GLUCOSE (test code = 2217) 86 MG/DL BUN (test code = 2208) 10 MG/DL CREATININE (test code = 2214) 0.84 MG/DL eGFR (2020 CKD-EPI) (test code 99 ML/MIN/1.73 = 73003) CALC BUN/CREAT (test code = 12 RATIO 2235) SODIUM (test code = 2231) 139 MEQ/L POTASSIUM (test code = 2228) 4.0 MEQ/L CHLORIDE (test code = 2215) 100 MEQ/L CARBON DIOXIDE (test code = 24 MEQ/L 2205) CALCIUM (test code = 2209) 10.2 MG/DL PROTEIN, TOTAL (test code = 7.3 G/DL 2228) ALBUMIN (test code = 2201) 4.5 G/DL CALC GLOBULIN (test code = 2.8 G/DL 2239) CALC A/G RATIO (test code = 1.6 RATIO 2233) BILIRUBIN, TOTAL (test code = 0.4 MG/DL 2206) ALKALINE PHOSPHATASE (test 84 U/L code = 2204) AST (test code = 2218) 41 U/L ALT (test code = 2219) 52 U/L LIPID [id number] 00:00:00 Test Item Value Reference Range Interpretation Comments CHOLESTEROL (test code = 2210) 282 MG/DL TRIGLYCERIDES (test code = 2232) 175 MG/DL HDL CHOLESTEROL (test code = 2220) 48 MG/DL CALC LDL CHOL (test code = 2237) 200 MG/DL RISK RATIO LDL/HDL (test code = 4.17 RATIO 2238) LIPID [id number] 00:00:00 Test Item Value Reference Range Interpretation Comments CHOLESTEROL (test code = 2210) 282 MG/DL TRIGLYCERIDES (test code = 2232) 175 MG/DL HDL CHOLESTEROL (test code = 2220) 48 MG/DL CALC LDL CHOL (test code = 2237) 200 MG/DL RISK RATIO LDL/HDL (test code = 4.17 RATIO 2238) HEMOGLOBIN [id number] 00:00:00 Test Item Value Reference Range Interpretation Comments HEMOGLOBIN A1c (test code = 65416) 5.2 % HEMOGLOBIN [id number] 00:00:00 Test Item Value Reference Range Interpretation Comments HEMOGLOBIN A1c (test code = 58353) 5.2 % HEMOGLOBIN [id number] 00:00:00 Test Item Value Reference Range Interpretation Comments HEMOGLOBIN A1c (test code = 44950) 5.2 % THYROID II PROFILE (TU, T4, T7, TSH)2022-03-16 00:00:00 Test Item Value Reference Range Interpretation Comments T-UPTAKE (test code = 2817) 33.1 % THYROX. BIND. CAPAC. (test code 1.0 = 47838) T4 (THYROXINE) (test code = 8.5 UG/DL 2819) CORRECTED T4 (FTI) (test code = 8.5 UG/DL 2820) TSH, THIRD GENERATION (test code 1.200 UIU/ML = 2821) THYROID II PROFILE (TU, T4, T7, TSH)2022-03-16 00:00:00 Test Item Value Reference Range Interpretation Comments T-UPTAKE (test code = 2817) 33.1 % THYROX. BIND. CAPAC. (test code 1.0 = 96918) T4 (THYROXINE) (test code = 8.5 UG/DL 2819) CORRECTED T4 (FTI) (test code = 8.5 UG/DL 2820) TSH, THIRD GENERATION (test code 1.200 UIU/ML = 2821) COMPREHENSIVE METABOLIC [id number] 00:00:00 Test Item Value Reference Range Interpretation Comments GLUCOSE (test code = 2217) 82 MG/DL BUN (test code = 2208) 10 MG/DL CREATININE (test code = 2214) 0.65 MG/DL eGFR AMER. (test code 146 ML/MIN/1.73 = 55302) eGFR NON- AMER. (test 126 ML/MIN/1.73 code = 97831) CALC BUN/CREAT (test code = 15 RATIO 2235) SODIUM (test code = 2231) 141 MEQ/L POTASSIUM (test code = 2228) 4.3 MEQ/L CHLORIDE (test code = 2215) 103 MEQ/L CARBON DIOXIDE (test code = 24 MEQ/L 2205) CALCIUM (test code = 2209) 9.6 MG/DL PROTEIN, TOTAL (test code = 7.2 G/DL 2228) ALBUMIN (test code = 2201) 4.9 G/DL CALC GLOBULIN (test code = 2.3 G/DL 0) CALC A/G RATIO (test code = 2.1 RATIO 2234) BILIRUBIN, TOTAL (test code = <0.2 MG/DL 2206) ALKALINE PHOSPHATASE (test 65 U/L code = 2204) AST (test code = 2218) 24 U/L ALT (test code = 2219) 25 U/L COMPREHENSIVE METABOLIC [id number] 00:00:00 Test Item Value Reference Range Interpretation Comments GLUCOSE (test code = 2217) 82 MG/DL BUN (test code = 2208) 10 MG/DL CREATININE (test code = 2214) 0.65 MG/DL eGFR AMER. (test code 146 ML/MIN/1.73 = 91948) eGFR NON- AMER. (test 126 ML/MIN/1.73 code = 18071) CALC BUN/CREAT (test code = 15 RATIO 2235) SODIUM (test code = 2231) 141 MEQ/L POTASSIUM (test code = 2228) 4.3 MEQ/L CHLORIDE (test code = 2215) 103 MEQ/L CARBON DIOXIDE (test code = 24 MEQ/L 220) CALCIUM (test code = 2209) 9.6 MG/DL PROTEIN, TOTAL (test code = 7.2 G/DL 2228) ALBUMIN (test code = 2201) 4.9 G/DL CALC GLOBULIN (test code = 2.3 G/DL 2240) CALC A/G RATIO (test code = 2.1 RATIO 2234) BILIRUBIN, TOTAL (test code = <0.2 MG/DL 2206) ALKALINE PHOSPHATASE (test 65 U/L code = 2204) AST (test code = 2218) 24 U/L ALT (test code = 2219) 25 U/L CBC W/AUTO [id number] 00:00:00 Test Item Value Reference Range Interpretation Comments WBC (test code = 1001) 9.3 K/UL RBC (test code = 1002) 4.72 M/UL HEMOGLOBIN (test code = 1003) 13.8 G/DL HEMATOCRIT (test code = 1004) 39.6 % MCV (test code = 1005) 83.9 fL MCH (test code = 1006) 29.2 PG MCHC (test code = 1007) 34.8 G/DL RDW (test code = 1038) 12.5 % NEUTROPHILS (test code = 1008) 62.9 % LYMPHOCYTES (test code = 1010) 22.8 % MONOCYTES (test code = 1011) 8.6 % EOSINOPHILS (test code = 1012) 5.1 % BASOPHILS (test code = 1013) 0.6 % PLATELET COUNT (test code = 1015) 397 K/UL CBC W/AUTO [id number] 00:00:00 Test Item Value Reference Range Interpretation Comments WBC (test code = 1001) 9.3 K/UL RBC (test code = 1002) 4.72 M/UL HEMOGLOBIN (test code = 1003) 13.8 G/DL HEMATOCRIT (test code = 1004) 39.6 % MCV (test code = 1005) 83.9 fL MCH (test code = 1006) 29.2 PG MCHC (test code = 1007) 34.8 G/DL RDW (test code = 1038) 12.5 % NEUTROPHILS (test code = 1008) 62.9 % LYMPHOCYTES (test code = 1010) 22.8 % MONOCYTES (test code = 1011) 8.6 % EOSINOPHILS (test code = 1012) 5.1 % BASOPHILS (test code = 1013) 0.6 % PLATELET COUNT (test code = 1015) 397 K/UL CBC W/AUTO [id number] 00:00:00 Test Item Value Reference Range Interpretation Comments WBC (test code = 1001) 9.3 K/UL RBC (test code = 1002) 4.72 M/UL HEMOGLOBIN (test code = 1003) 13.8 G/DL HEMATOCRIT (test code = 1004) 39.6 % MCV (test code = 1005) 83.9 fL MCH (test code = 1006) 29.2 PG MCHC (test code = 1007) 34.8 G/DL RDW (test code = 1038) 12.5 % NEUTROPHILS (test code = 1008) 62.9 % LYMPHOCYTES (test code = 1010) 22.8 % MONOCYTES (test code = 1011) 8.6 % EOSINOPHILS (test code = 1012) 5.1 % BASOPHILS (test code = 1013) 0.6 % PLATELET COUNT (test code = 1015) 397 K/UL [id number] 00:00:00 Test Item Value Reference Range Interpretation Comments TSH, THIRD GENERATION (test code 2.190 UIU/ML = 2821) [id number] 00:00:00 Test Item Value Reference Range Interpretation Comments TSH, THIRD GENERATION (test code 2.190 UIU/ML = 2821) [id number] 00:00:00 Test Item Value Reference Range Interpretation Comments TSH, THIRD GENERATION (test code 2.190 UIU/ML = 2821) HEMOGLOBIN [id number] 00:00:00 Test Item Value Reference Range Interpretation Comments HEMOGLOBIN A1c (test code = 12552) 5.0 % HEMOGLOBIN [id number] 00:00:00 Test Item Value Reference Range Interpretation Comments HEMOGLOBIN A1c (test code = 59797) 5.0 % HEMOGLOBIN [id number] 00:00:00 Test Item Value Reference Range Interpretation Comments HEMOGLOBIN A1c (test code = 10861) 5.0 % COMPREHENSIVE METABOLIC [id number] 00:00:00 Test Item Value Reference Range Interpretation Comments GLUCOSE (test code = 2217) 82 MG/DL BUN (test code = 2208) 13 MG/DL CREATININE (test code = 2214) 0.73 MG/DL eGFR AMER. (test code 137 ML/MIN/1.73 = 95623) eGFR NON- AMER. (test 119 ML/MIN/1.73 code = 66078) CALC BUN/CREAT (test code = 18 RATIO 2235) SODIUM (test code = 2231) 142 MEQ/L POTASSIUM (test code = 2228) 4.6 MEQ/L CHLORIDE (test code = 2215) 101 MEQ/L CARBON DIOXIDE (test code = 24 MEQ/L 2206) CALCIUM (test code = 2209) 9.9 MG/DL PROTEIN, TOTAL (test code = 7.5 G/DL 2228) ALBUMIN (test code = 2201) 4.7 G/DL CALC GLOBULIN (test code = 2.8 G/DL 2240) CALC A/G RATIO (test code = 1.7 RATIO 2234) BILIRUBIN, TOTAL (test code = 0.3 MG/DL 2206) ALKALINE PHOSPHATASE (test 67 U/L code = 2204) AST (test code = 2218) 14 U/L ALT (test code = 2219) 12 U/L COMPREHENSIVE METABOLIC [id number] 00:00:00 Test Item Value Reference Range Interpretation Comments GLUCOSE (test code = 2217) 82 MG/DL BUN (test code = 2208) 13 MG/DL CREATININE (test code = 2214) 0.73 MG/DL eGFR AMER. (test code 137 ML/MIN/1.73 = 34954) eGFR NON- AMER. (test 119 ML/MIN/1.73 code = 53023) CALC BUN/CREAT (test code = 18 RATIO 2235) SODIUM (test code = 2231) 142 MEQ/L POTASSIUM (test code = 2228) 4.6 MEQ/L CHLORIDE (test code = 2215) 101 MEQ/L CARBON DIOXIDE (test code = 24 MEQ/L 2205) CALCIUM (test code = 2209) 9.9 MG/DL PROTEIN, TOTAL (test code = 7.5 G/DL 2228) ALBUMIN (test code = 2201) 4.7 G/DL CALC GLOBULIN (test code = 2.8 G/DL 224) CALC A/G RATIO (test code = 1.7 RATIO 2234) BILIRUBIN, TOTAL (test code = 0.3 MG/DL 2206) ALKALINE PHOSPHATASE (test 67 U/L code = 2204) AST (test code = 2218) 14 U/L ALT (test code = 2219) 12 U/L LIPID [id number] 00:00:00 Test Item Value Reference Range Interpretation Comments CHOLESTEROL (test code = 2210) 219 MG/DL TRIGLYCERIDES (test code = 2232) 82 MG/DL HDL CHOLESTEROL (test code = 2220) 53 MG/DL CALC LDL CHOL (test code = 2237) 150 MG/DL RISK RATIO LDL/HDL (test code = 2.82 RATIO 2238) LIPID [id number] 00:00:00 Test Item Value Reference Range Interpretation Comments CHOLESTEROL (test code = 2210) 219 MG/DL TRIGLYCERIDES (test code = 2232) 82 MG/DL HDL CHOLESTEROL (test code = 2220) 53 MG/DL CALC LDL CHOL (test code = 2237) 150 MG/DL RISK RATIO LDL/HDL (test code = 2.82 RATIO 2238) [id number] 00:00:00 Test Item Value Reference Range Interpretation Comments TSH (test code = 2821) 0.663 UIU/ML [id number] 00:00:00 Test Item Value Reference Range Interpretation Comments TSH (test code = 2821) 0.663 UIU/ML [id number] 00:00:00 Test Item Value Reference Range Interpretation Comments TSH (test code = 2821) 0.663 UIU/ML CULTURE, [id number] 00:00:00 Test Item Value Reference Range Interpretation Comments CULTURE, THROAT (test SPECIMEN NUMBER: code = 46133) [id number] CULTURE, [id number] 00:00:00 Test Item Value Reference Range Interpretation Comments CULTURE, THROAT (test SPECIMEN NUMBER: code = 97822) [id number] COMPREHENSIVE METABOLIC [id number] 00:00:00 Test Item Value Reference Range Interpretation Comments GLUCOSE (test code = 2217) 84 MG/DL BUN (test code = 2208) 13 MG/DL CREATININE (test code = 2214) 0.72 MG/DL eGFR AMER. (test code 141 ML/MIN/1.73 = 09919) eGFR NON- AMER. (test 121 ML/MIN/1.73 code = 77672) CALC BUN/CREAT (test code = 18 RATIO 2235) SODIUM (test code = 2231) 142 MEQ/L POTASSIUM (test code = 2228) 4.0 MEQ/L CHLORIDE (test code = 2215) 101 MEQ/L CARBON DIOXIDE (test code = 24 MEQ/L 2205) CALCIUM (test code = 2209) 10.1 MG/DL PROTEIN, TOTAL (test code = 7.5 G/DL 2228) ALBUMIN (test code = 2201) 4.7 G/DL CALC GLOBULIN (test code = 2.8 G/DL 0) CALC A/G RATIO (test code = 1.7 RATIO 4) BILIRUBIN, TOTAL (test code = 0.5 MG/DL 2206) ALKALINE PHOSPHATASE (test 66 U/L code = 2204) AST (test code = 2218) 18 U/L ALT (test code = 2219) 27 U/L COMPREHENSIVE METABOLIC [id number] 00:00:00 Test Item Value Reference Range Interpretation Comments GLUCOSE (test code = 2217) 84 MG/DL BUN (test code = 2208) 13 MG/DL CREATININE (test code = 2214) 0.72 MG/DL eGFR AMER. (test code 141 ML/MIN/1.73 = 02032) eGFR NON- AMER. (test 121 ML/MIN/1.73 code = 68475) CALC BUN/CREAT (test code = 18 RATIO 2235) SODIUM (test code = 2231) 142 MEQ/L POTASSIUM (test code = 2228) 4.0 MEQ/L CHLORIDE (test code = 2215) 101 MEQ/L CARBON DIOXIDE (test code = 24 MEQ/L 2205) CALCIUM (test code = 2208) 10.1 MG/DL PROTEIN, TOTAL (test code = 7.5 G/DL 2228) ALBUMIN (test code = 2200) 4.7 G/DL CALC GLOBULIN (test code = 2.8 G/DL 2239) CALC A/G RATIO (test code = 1.7 RATIO 2233) BILIRUBIN, TOTAL (test code = 0.5 MG/DL 2206) ALKALINE PHOSPHATASE (test 66 U/L code = 2203) AST (test code = 2218) 18 U/L ALT (test code = 221) 27 U/L
--- NOTE | 2022-07-08 20:34 | ER ---
Nurse's Notes [facility] Name: Yandy Dawkins Age: 26 yrs Sex: Female : 1995 Arrival Date: 07/08/2022 Time: 19:56 Bed IW1 Private MD: Diagnosis: Ring stuck on right middle finger-removed Presentation: 07/08 20:12 Chief complaint: Patient states: "I have a ring stuck on my finger". Coronavirus as6 screen: At this time, the client does not indicate any symptoms associated with coronavirus-19. Ebola Screen: No symptoms or risks identified at this time. Initial Sepsis Screen: Does the patient meet any 2 criteria? No. Patient's initial sepsis screen is negative. Does the patient have a suspected source of infection? No. Patient's initial sepsis screen is negative. Risk Assessment: Do you want to hurt yourself or someone else? Patient reports no desire to harm self or others. Onset of symptoms was July 08, 2022. 20:12 Method Of Arrival: Ambulatory as6 20:12 Acuity: SREEKANTH 5 as6 Triage Assessment: 20:14 General: Appears in no apparent distress. Behavior is calm, cooperative. Pain: Denies as6 pain. Musculoskeletal: ring stuck on right middle finger. 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 - Social history:: Smoking status: Patient reports the use of cigarette tobacco products, smokes one pack cigarettes per day. Screenin:15 [facility] Fall Risk Assessment (Adult) Score/Fall Risk Level 0 - 2 = Low Risk. Abuse as6 screen: Denies threats or abuse. Denies injuries from another. Nutritional screening: No deficits noted. Tuberculosis screening: No symptoms or risk factors identified. Vital Signs: 20:12 Resp 18 S; Temp 98.6(O); Pulse Ox 98% on R/A; Weight 149.69 kg (R); Height 5 ft. 5 in. as6 (165.10 cm) (R); Pain 0/10; 20:20 BP 134 / 81; Pulse 77; as6 20:12 Body Mass Index 54.91 (149.69 kg, 165.10 cm) as6 ED Course: 19:56 Patient arrived in ED. am2 20:00 [facility] kb 20:00 Nakita Reeder MD is Attending Physician. kb 20:14 Triage completed. as6 20:14 Arm band placed on. as6 20:15 Patient has correct armband on for positive identification. as6 20:16 Patient did not have IV access during this emergency room visit. Removal of Removed as6 ring from right middle finger. Removed ring with ring cutter Patient tolerated well. 20:20 Joe Fregoso, RN is Primary Nurse. as6 20:20 No provider procedures requiring assistance completed. as6 Administered Medications: No medications were administered Medication: 20:15 VIS not applicable for this client. as6 Outcome: 20:16 Discharged to home ambulatory. as6 20:16 Condition: stable 20:27 Discharge instructions given to patient, Instructed on discharge instructions, follow as6 up and referral plans. Demonstrated understanding of instructions, follow-up care. 20:33 Discharge ordered by . kb 20:35 Patient left the ED. bb Signatures: Cecy Paul FNP-C FNP-Ckb Ballard, Brenda, RN RN bb Althea Shannon am2 Joe Fregoso, SHARON RN as6
--- NOTE | 2022-07-08 20:34 | EDPHYS ---
Physician Documentation [facility] Name: Yandy Dawkins Age: 26 yrs Sex: Female : 1995 Arrival Date: 07/08/2022 Time: 19:56 Bed IW1 Private MD: ED Physician Nakita Reeder HPI: 07/08 23:38 This 26 yrs old Female presents to ER via Ambulatory with complaints of ring stuck on kb finger. 23:38 The patient or guardian reports the patient has a suspected foreign body, of the Ring kb stuck on right middle finger. The reported likely foreign body is a ring. Current symptoms: none. Treatment Prior to Arrival: tried to remove, Unable to remove. The patient has not experienced similar symptoms in the past. The patient has not recently seen a physician. 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 - Social history:: Smoking status: Patient reports the use of cigarette tobacco products, smokes one pack cigarettes per day. ROS: 23:39 Constitutional: Negative for fever, chills, and weight loss. kb 23:39 MS/extremity: Positive for Ring stuck on right middle finger. 23:39 All other systems are negative. Exam: 23:39 Constitutional: This is a well developed, well nourished patient who is awake, alert, kb and in no acute distress. Head/Face: Normocephalic, atraumatic. ENT: Moist Mucous membranes Cardiovascular: Regular rate and rhythm with a normal S1 and S2. No gallops, murmurs, or rubs. No pulse deficits. Respiratory: Respirations even and unlabored. No increased work of breathing. Talking in full sentences Abdomen/GI: Soft, non-tender. No distention Skin: Warm, dry with normal turgor. Normal color. MS/ Extremity: Pulses equal, no cyanosis. Neurovascular intact. Full, normal range of motion. Neuro: Awake and alert, GCS 15, oriented to person, place, time, and situation. Moves all extremities. Normal gait. Psych: Awake, alert, with orientation to person, place and time. Behavior, mood, and affect are within normal limits. Vital Signs: 20:12 Resp 18 S; Temp 98.6(O); Pulse Ox 98% on R/A; Weight 149.69 kg (R); Height 5 ft. 5 in. as6 (165.10 cm) (R); Pain 0/10; 20:20 BP 134 / 81; Pulse 77; as6 20:12 Body Mass Index 54.91 (149.69 kg, 165.10 cm) as6 MDM: 20:11 Patient medically screened. kb 23:36 Data reviewed: vital signs, nurses notes. Counseling: I had a detailed discussion with kb the patient and/or guardian regarding: the historical points, exam findings, and any diagnostic results supporting the discharge/admit diagnosis, the need for outpatient follow up, a family practitioner, to return to the emergency department if symptoms worsen or persist or if there are any questions or concerns that arise at home. ED course: Patient is a 26-year-old female who presents for a ring stuck on right middle finger. States she put the ring on it in 2019 and is never taken it off but has gained some weight and has been unable to take it off recently. States she came in today because she had time to come get it removed. States she tried multiple things at home including loss, oil, soap and water and saw a TikTok that showed her there was a ring cutter that ERs. Ring cutter used to remove ring. Patient tolerated procedure well.. Administered Medications: No medications were administered Disposition: 07/09 06:31 I reviewed the patient's care provided by Advanced Practice Provider \T\ agree w/ the sd2 diagnosis \T\ care plan. I personally saw the pt \T\ performed a substantive portion of the visit, incldng all aspects of the (History/Exam/Medical Decision Making). Disposition Summary: 07/08/22 20:33 Discharge Ordered Location: Home Condition: Stable Diagnosis - Ring stuck on right middle finger-removed kb Followup: kb - With: Emergency Department - When: As needed - Reason: Worsening of condition Followup: kb - With: Private Physician - When: 2 - 3 days - Reason: Recheck today's complaints, Continuance of care, Re-evaluation by your physician Forms: - Medication Reconciliation Form kb - Thank You Letter kb - Antibiotic Education kb - Prescription Opioid Use kb Signatures: Cecy Paul FNP-C FNP-Joe Coleman RN RN as6 Nakita Reeder MD MD sd2
[2022-07-08 21:03] VITALS: TEMP 98.6; O2SAT 98
[2022-07-08 21:04] VITALS: BP 134/81
== END 2022-07-08 20:35 | disposition home or self-care (01) ==
LOC: ER 19:54
DX: S60.444A External constriction of right ring finger, initial encounter (principal); W49.04XA Ring or other jewelry causing external constriction, initial encounter; F17.210 Nicotine dependence, cigarettes, uncomplicated; Z88.5 Allergy status to narcotic agent
CPT/HCPCS: 99283